=== PATIENT | female | born 1985 | race African-American/Black ===

== ENCOUNTER 2017-01-03 11:31 | Inpatient (IN) | payer BC, OTHER ==
[2017-01-03] MEDS ORDERED: PROPOFOL 20 ML ONE ×4 (12:20)
[2017-01-03] MEDS ORDERED: ACETAMINOPHEN 500 MG TABLET (FP) ONE (14:34)
--- NOTE | 2017-01-03 14:59 | CON.GI ---
Consult Consult Specialty:: GI Referred by:: Hospitalist service Reason for Consultation:: Abdominal pain / abnormal colnoscopy findings - History of Present Illness Chief Complaint: Patient was having abdominal pain History of Present Illness: 31 y/o female admitted from endoscopy. I had evaluated her last week in the office for intermittent acute on chronic abdominal pain that had been accompanied by vomiting as well. As part of her work-up she underwent blood work revealing her to be mildly anemic with a hgb of 10.5. She also underwent CT scan of the abdomen and pelvis with PO and IV contrast 12/28/16 that revealed a 2-3mm left lung base nodule, hypoattenuation in the left hepatic lobe (? fatty infiltration), enlarged and heterogeneous uterus, enlarged right ovary with cyst, right renal stone and fat filled umbilical hernia with fluid/ stranding in the area. She underwent colonoscopy today for follow-up of the abnormal CT scan that revealed a near obstructing lesion in the distal ascending colon just proximal to the hepatic flexure. The pediatric colonoscope could not be passed through the lesion. Biopsies were obtained and tattoos x 4 applied distal to the lesion. - History Source History Provided By: Patient Limitations to Obtaining History: No Limitations - Past Medical History ...LMP Comment: HCG NEGATIVE ...: No (URINE TEST) - Past Surgical History Past Surgical History: Yes: - Alcohol/Substance Use Hx Alcohol Use: No - Smoking History Smoking history: Never smoked Have you smoked in the past 12 months: No Aproximately how many cigarettes per day: 0 Home Medications - Allergies Allergies/Adverse Reactions: Allergies Allergy/AdvReac Type Severity Reaction Status Date / Time No Known Allergies Allergy Verified 06/05/12 08:35 - Home Medications Home Medications: Ambulatory Orders Multivitamin with Minerals [Icaps Plus] 1 each PO DAILY 01/02/17 Temple-3 Fatty Acids [Temple-3] 1,000 mg PO DAILY 01/02/17 Review of Systems - Review of Systems Cardiovascular: denies: Chest Pain Respiratory: denies: SOB Gastrointestinal: reports: Abdominal Pain, Bloating, Nausea, Vomiting. denies: Dysphagia, Melena, Rectal Bleeding Physical Exam-GI Vital Signs: Vital Signs Temperature 97.8 F 01/03/17 13:27 Pulse Rate 64 01/03/17 14:18 Respiratory Rate 20 01/03/17 14:18 Blood Pressure 103/59 01/03/17 14:18 O2 Sat by Pulse Oximetry (%) 100 01/03/17 14:18 Constitutional: Yes: Well Nourished, Calm Eyes: No: Sclera Icterus Cardiovascular: Yes: Regular Rate and Rhythm. No: Murmur Respiratory: Yes: CTA Bilaterally Gastrointestinal Inspection: Yes: Scars (pelvic) ...Auscultate: Yes: Normoactive Bowel Sounds ...Palpate: Yes: Tenderness (mild TTP Mid Abdomen). No: Guarding, Hepatomegaly , Splenomegaly, Tenderness, Rebound ...Percussion: No: Tympanitic Edema: No Neurological: Yes: Alert, Oriented Imaging - Results Cat Scan: Report Reviewed, Image Reviewed Problem List - Problems (1) Colonic mass Assessment/Plan: In the proximal colon, circumferential and near obstructing. I discussed the finding with Ms. Landeros and her primary Dr. Severino via telephone today and expressed my concern that the mass is likely a colon cancer. Given the near obstructing nature of the lesion along with the vague findings on previous CT scan (lung nodule, ? fatty infiltration vs. liver lesion) I advised admission for further inpatient work-up. CT scan of the chest has been ordered Triple phase MRI of the abdomen ordered CEA, CBC, CMP ordered Consult placed for Dr. Sylvester Hernandez colorectal surgeon Consult placed for Dr. Roxann Santos D/W Dr. Moses. Patient to be admitted to hospitalist service Code(s): K63.9 - DISEASE OF INTESTINE, UNSPECIFIED
[2017-01-03 16:07] LABS: BASOPHIL 0.5 % (0-2.0); EOSINOPHIL 1.6 % (0-4.5); MCH 27.9 pg (25.7-33.7); MCHC 32.5 g/dl (32.0-36.0); MEAN CELL VOLUME 85.8 fl (80-96); MEAN PLT VOLUME 10.1 fl (7.5-11.1); NEUTROPHILS 68.3 % (42.8-82.8); PLATELET COUNT 217 K/MM3 (134-434); RDW 13.3 % (11.6-15.6); WHITE BLOOD COUNT 2.9 K/mm3 (4.0-10.0)
--- NOTE | 2017-01-03 16:38 | PN ---
Teaching Attending Note Name of Resident: Gilberto Trevino ATTENDING PHYSICIAN STATEMENT I saw and evaluated the patient. I reviewed the resident's note and discussed the case with the resident. I agree with the resident's findings and plan as documented. SUBJECTIVE: The patient is a 31 year old female with no significant past medical history who was admitted for further evaluation after an anemia work-up prompted a colonoscopy that showed an obstructing lesion in the ascending colon concerning for possible colon cancer. OBJECTIVE: The patient is well appearing and in no acute distress Vitals noted CBC noted Chemistries pending ASSESSMENT AND PLAN: -Anemia Anemia is chronic. It is normocytic with normal RDM Leukopenia is a new finding Hematology was consulted by GI Of note, albumin and total protein were quite low in 2013. -Colon lesion Appreciate GI cosmetic consultant assitance CT scan of the chest and triple phase MRI of the abdomen ordered CEA pending Will follow colorectal consult, heme/onc consult -Uterine and ovarian abnormalities seen on CT WIll consult [facility] See resident note for full details
[2017-01-03 16:57] VITALS: BMI 26.8
[2017-01-03 17:51] LABS: ALBUMIN 3.4 g/dl (3.4-5.0); ALK PHOS 40 U/L (45-117); ANION GAP 10 (8-16); BILIRUBIN,TOTAL 0.6 mg/dL (0.2-1.0); CALCIUM 8.3 mg/dL (8.5-10.1); CO2 27 mmol/L (21-32); CREATININE 0.7 mg/dL (0.55-1.02); GLUCOSE,RANDOM 73 mg/dL (74-106); SGOT/AST 14 U/L (15-37); SGPT/ALT 15 U/L (12-78); TOT PROT 6.3 g/dl (6.4-8.2)
--- NOTE | 2017-01-03 18:14 | HP ---
CHIEF COMPLAINT:ABD pain HISTORY OF PRESENT ILLNESS: 31F no PMH presented for colonoscopy today and was found to have an obstructing colon mass that the pediatric colonoscope could not pass through the lesion. Seen in GI office last week and noted to have anemia Hb 10.[address] scan ABD/Pelv on 12/28/16 which showed 2-3mm left lung base nodule, hypoattenuation in the left hepatic lobe possible fatty infiltration, enlarged and heterogeneous uterus, enlarged right ovary with cyst, right renal stone and fat filled umbilical hernia with fluid/stranding in the area. She has been having acute on chronic abdominal pain. She was admitted for further inpatient work up. Recent Travel:denies PAST MEDICAL HISTORY:denies Social History: Smoking:Denies Alcohol:Denies Drugs: Denies Family History: Dad had prostate Ca and some kind of bone marrow or blood Ca and mom had breast Ca Allergies No Known Allergies Allergy (Verified 06/05/12 08:35) HOME MEDICATIONS: Home Medications Medication Instructions Recorded Multivitamin with Minerals [Icaps 1 each PO DAILY 01/02/17 Plus] [place]-3 Fatty Acids [[place]-3] 1,000 mg PO DAILY 01/02/17 REVIEW OF SYSTEMS CONSTITUTIONAL: Absent: fever, chills, diaphoresis, generalized weakness, malaise, loss of appetite, Present: weight loss of 70lbs intentional not eating carbs per patient HEENT: Absent: rhinorrhea, nasal congestion, throat pain, throat swelling, difficulty swallowing, mouth swelling, ear pain, eye pain, visual changes CARDIOVASCULAR: Absent: chest pain, syncope, palpitations, irregular heart rate, lightheadedness , peripheral edema RESPIRATORY: Absent: cough, shortness of breath, dyspnea with exertion, orthopnea, wheezing, stridor, hemoptysis GASTROINTESTINAL: Absent: abdominal distension, nausea, vomiting, diarrhea, constipation, melena , hematochezia Present:abdominal pain GENITOURINARY: Absent: dysuria, frequency, urgency, hesitancy, hematuria, flank pain, genital pain MUSCULOSKELETAL: Absent: myalgia, arthralgia, joint swelling, back pain, neck pain SKIN: Absent: rash, itching, pallor HEMATOLOGIC/IMMUNOLOGIC: Absent: easy bleeding, easy bruising, lymphadenopathy, frequent infections ENDOCRINE: Absent: unexplained weight gain, heat intolerance, cold intolerance NEUROLOGIC: Absent: headache, focal weakness or paresthesias, dizziness, unsteady gait, seizure, mental status changes, bladder or bowel incontinence PSYCHIATRIC: Absent: anxiety, depression, suicidal or homicidal ideation, hallucinations. PHYSICAL EXAMINATION Vital Signs - 24 hr 01/03/17 01/03/17 01/03/17 13:27 13:44 14:04 Temperature 97.8 F Pulse Rate 85 60 69 Respiratory 16 20 20 Rate Blood Pressure 98/48 102/54 94/58 O2 Sat by Pulse 99 100 100 Oximetry (%) 01/03/17 01/03/17 01/03/17 14:18 14:50 16:22 Temperature 97.5 F L 98.4 F Pulse Rate 64 69 57 L Respiratory 20 20 18 Rate Blood Pressure 103/59 103/59 103/59 O2 Sat by Pulse 100 97 Oximetry (%) 01/03/17 01/03/17 01/03/17 16:23 17:04 18:07 Temperature 98.4 F 98.9 F Pulse Rate 57 L 69 Respiratory 18 20 Rate Blood Pressure 103/59 112/68 O2 Sat by Pulse 97 Oximetry (%) GENERAL: Awake, alert, and fully oriented, in no acute distress. HEAD: Normal with no signs of trauma. EYES: Pupils equal, round and reactive to light, extraocular movements intact, sclera anicteric, conjunctiva clear. No lid lag. EARS, NOSE, THROAT: Ears normal, nares patent, oropharynx clear without exudates. Moist mucous membranes. NECK: Normal range of motion, supple LUNGS: Breath sounds equal, clear to auscultation bilaterally HEART: Regular rate and rhythm, normal S1 and S2 without murmur ABDOMEN: Soft, mildly tender to palpation, not distended, normoactive bowel sounds MUSCULOSKELETAL: Normal range of motion at all joints. No bony deformities or tenderness. No CVA tenderness. Decreased muscle mass UPPER EXTREMITIES: warm, well-perfused. No peripheral edema. LOWER EXTREMITIES: warm, well-perfused. No calf tenderness. No peripheral edema. NEUROLOGICAL: Cranial nerves II-XII intact. Normal speech. Laboratory Results - last 24 hr 01/03/17 01/03/17 11:54 14:45 WBC 2.9 L D RBC 3.66 Hgb 10.2 L Hct 31.4 L MCV 85.8 MCHC 32.5 RDW 13.3 Plt Count 217 MPV 10.1 Neutrophils % 68.3 Lymphocytes % 22.2 Monocytes % 7.4 Eosinophils % 1.6 Basophils % 0.5 Urine HCG, Qual Negative ASSESSMENT/PLAN: 31F no PMH found to have multiple findings on CT scan dated 12/28/16 admitted after an obstructing lesion found on colonoscopy in the distal ascending colon just proximal to hepatic flexure. Mass of ascending colon: Given characterisitics on CT scan this is likely colon Cancer Triple phase MRI of abdomen per GI Labs in AM CEA level heme/oncology conuslt colorectal Sx consult Albumin and total protein levels low on previous labs in the system from 2012 f/u pathology from colon biopsies Hepatic hypoattenuation of left lobe: possible metastasis vs fatty liver infiltration follow up MRI of abdomen left lung base nodule: possible incidental finding but in the setting of possible colon Ca will need to rule out metastasis f/u Chest CT Leukopenia: new finding: possibly secondary to cancer f/u hematology protein calorie malnutrition: patient appears slightly cachectic low albumin and total protein levels indicative of malnutrition also give her low amount of lean muscle mass Anemia: Chronic likely secondary to colon mass with intermittent GI bleeding f/u hemtology Ovarian Mass/enlarged uterus: possible metastasis: ORTHO RN consult FEN: no IVF no electrolyte issues FLD per GI PPx: SCDs/HSQ no GI Ppx needed at this time no PT consult needed at this time will assess need for PT consult on a daily basis. Case discussed with attending Dr. Mooney Visit type - Emergency Visit Emergency Visit: No - New Patient This patient is new to me today: Yes Date on this admission: 01/03/17 - Critical Care Critical Care patient: No
[2017-01-03] MEDS ORDERED: ONDANSETRON 4 MG/2 ML VIAL IVPB PRN (19:02)
--- NOTE | 2017-01-03 19:42 | CONSULT ---
Consult Consult Specialty:: Oncology Referred by:: Dr. Kaiser Reason for Consultation:: near obstructing mass in the distal ascending colon. - History of Present Illness Chief Complaint: Crampy abdominal pains, inability to evacuate total stool contents ,abnormal CT and near obstructing lesion distal ascending colon. 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: Migraine Reproductive: Yes: Fibroids ...LMP: 01/03/17 ...LMP Comment: HCG NEGATIVE ...: No (URINE TEST) ...: 3 ...Para: 4 Heme/Onc: Yes: Anemia Endocrine: Yes: Hyperthyroidism - Past Surgical History Past Surgical History: Yes: - Alcohol/Substance Use Hx Alcohol Use: No - Smoking History Smoking history: Never smoked Have you smoked in the past 12 months: No Aproximately how many cigarettes per day: 0 - Social History Usual Living Arrangement: With Child 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 Home Medications - Allergies Allergies/Adverse Reactions: Allergies Allergy/AdvReac Type Severity Reaction Status Date / Time No Known Allergies Allergy Verified 06/05/12 08:35 - Home Medications Home Medications: Ambulatory Orders Multivitamin with Minerals [Icaps Plus] 1 each PO DAILY 01/02/17 Concepcion-3 Fatty Acids [Concepcion-3] 1,000 mg PO DAILY 01/02/17 Family Disease History - Family Disease History Family Disease History: CA: Father (bone cancer and prostate ca) Review of Systems - Review of Systems Eyes: denies: Blurred Vision, Double Vision HENT: denies: Difficult Swallowing, Epistaxis, Throat Pain Neck: denies: Pain on Movement, Swollen Glands Cardiovascular: denies: Chest Pain, Palpitations, Shortness of Breath Respiratory: denies: SOB Gastrointestinal: reports: Abdominal Pain, Constipation, Nausea. denies: Dysphagia, Melena Genitourinary: denies: Burning, Dysuria, Flank Pain Breasts: reports: Lumps Musculoskeletal: reports: No Symptoms Integumentary: reports: No Symptoms Neurological: reports: No Symptoms Endocrine: reports: No Symptoms Hematology/Lymphatic: reports: No Symptoms Psychiatric: reports: No Symptoms Physical Exam Vital Signs: Vital Signs Temperature 98.4 F 01/03/17 18:12 Pulse Rate 57 L 01/03/17 18:12 Respiratory Rate 18 01/03/17 18:12 Blood Pressure 103/59 01/03/17 18:12 O2 Sat by Pulse Oximetry (%) 97 01/03/17 18:07 Constitutional: Yes: Mild Distress Eyes: Yes: EOM Intact, PERRL. No: Cataracts, Diplopia, Ptosis, Sclera Icterus HENT: No: Atraumatic, Normocephalic, Epistaxis, Pharyngeal Erythema, Tonsillar Exudate Neck: Yes: Supple. No: Lymphadenopathy, Tenderness, Thyromegaly Cardiovascular: Yes: Regular Rate and Rhythm Respiratory: Yes: Regular, CTA Bilaterally Gastrointestinal: Yes: Tenderness, Other (tenderness about umbilicus). No: Ascites, Hepatomegaly, Splenomegaly Renal/: Yes: Menses Present. No: Bladder Distention, CVA Tenderness - Left, CVA Tenderness - Right Breast(s): Yes: Left, Other Musculoskeletal: No: Joint Stiffness, Muscle Pain Extremities: No: Calf Tenderness, Cyanosis Integumentary: Yes: WNL Neurological: Yes: WNL ...Motor Strength: WNL Psychiatric: Yes: WNL Labs: CBC, BMP 01/03/17 14:45 01/03/17 14:45 Imaging - Results Cat Scan: Report Reviewed, Image Reviewed Problem List - Problems (1) Colonic mass Assessment/Plan: Near obstructing mass distal ascending colon. Abnormal Abdominal CT with lung nodule , area of hypodensity liver, umbilical hernia with fat stranding , enlarged uterus with right ovarian cyst. Plan: Await biopsy and imaging studies. Code(s): K63.9 - DISEASE OF INTESTINE, UNSPECIFIED (2) Anemia Assessment/Plan: ?? blood loss- awaiting biopsy results. Code(s): D64.9 - ANEMIA, UNSPECIFIED (3) Breast nodule Assessment/Plan: Upper outer quadrant right breast Will need sono for assessment. Code(s): N63 - UNSPECIFIED LUMP IN BREAST
[2017-01-04 08:33] LABS: MCH 27.9 pg (25.7-33.7); MCHC 32.4 g/dl (32.0-36.0); MEAN PLT VOLUME 9.5 fl (7.5-11.1); PLATELET COUNT 192 K/MM3 (134-434); RDW 13.1 % (11.6-15.6); WHITE BLOOD COUNT 2.8 K/mm3 (4.0-10.0)
[2017-01-04 08:56] LABS: CALCIUM 8.5 mg/dL (8.5-10.1)
[2017-01-04 08:57] LABS: CREATININE 0.7 mg/dL (0.55-1.02)
--- NOTE | 2017-01-04 12:11 | PN ---
Progress Note (short form) - Note Progress Note: Had d/w Dr. Soto. 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 Await CEA Await abdominal MRI / Chest CT scan chest reports Oncology following Consider assistant credit manager evaluation re: CT scan fiindings Problem List - Problems (1) Colonic mass Code(s): K63.9 - DISEASE OF INTESTINE, UNSPECIFIED
--- NOTE | 2017-01-04 13:27 | CONSULT ---
Consult Consult Specialty:: colorectal surgery Reason for Consultation:: near obstructing ascending colon mass - History of Present Illness Chief Complaint: occ abd pain History of Present Illness: Pt is a 31F with episodic abd pain over last couple of months. Workup includes CT showing apple core lesion in R colon. Colonoscopy done yesterday shows near obstructing lesion highly suspicious for malignancy. CT showed ? lesion in liver. MRI done and read is pending. CT Chest shows nodules which should be followed in 6 months. Pt denies weight loss. +anemia. 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 Loss Eyes: denies: Blind Spots, Blurred Vision HENT: denies: Difficult Swallowing, Ear Discharge Neck: denies: Decreased ROM, Lumps Cardiovascular: denies: Chest Pain, Edema Respiratory: denies: Cough, Exercise Intolerance Gastrointestinal: reports: Abdominal Pain. denies: Bloating Genitourinary: denies: Burning, Discharge Breasts: denies: Lumps, Pain Musculoskeletal: denies: Back Pain, Crepitus Integumentary: denies: Blister, Bruising Neurological: denies: Change in Speech, Incoordination Endocrine: denies: Excessive Sweating, Flushing Hematology/Lymphatic: denies: Easily Bruised, Excessive Bleeding Psychiatric: denies: Altered Sleep Pattern, Anxiety Physical Exam Vital Signs: Vital Signs Temperature 98.9 F 01/04/17 07:04 Pulse Rate 60 01/04/17 07:04 Respiratory Rate 20 01/04/17 07:04 Blood Pressure 88/42 01/04/17 07:04 O2 Sat by Pulse Oximetry (%) 97 01/03/17 21:00 Constitutional: Yes: No Distress, Calm Eyes: Yes: Conjunctiva Clear, EOM Intact HENT: Yes: Atraumatic, Normocephalic Neck: Yes: Supple, Trachea Midline Cardiovascular: Yes: Regular Rate and Rhythm Respiratory: Yes: Regular, CTA Bilaterally Gastrointestinal: Yes: Soft, Other (old scar). No: Distention, Tenderness ...Rectal Exam: Yes: Deferred Renal/: No: CVA Tenderness - Left, CVA Tenderness - Right Musculoskeletal: No: Joint Stiffness, Joint Swelling Extremities: No: Calf Tenderness, Erythema Integumentary: No: Erythema, Rash Neurological: Yes: Alert, Oriented Psychiatric: Yes: Alert, Oriented Labs: CBC, BMP 01/04/17 07:00 01/04/17 07:00 Imaging - Results Cat Scan: Report Reviewed, Image Reviewed MRI: Image Reviewed Problem List - Problems (1) Ascending colon malignant neoplasm Assessment/Plan: await MRI results for lap R sandrine on Monday await CEA results Code(s): C18.2 - MALIGNANT NEOPLASM OF ASCENDING COLON
--- NOTE | 2017-01-04 15:04 | PATH ---
Surgical Pathology Report Patient Name: NEY ANDERSON Med. Rec. #: [id number] /Age/Gender: 1985 (Age: 31) / F Account: [id number] Location: [facility] MED/SURG Taken: 01/03/2017 Received: 01/03/2017 Reported: 01/04/2017 Physicians: Wilfredo Rosales D.O. 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 Comment: Immunohistochemical stains performed and interpreted at [facility] show the following: the tumor cells are positive for Ae1/Ae3 and CK20 keratind and are negative for CK7. These results are consistent with primary colon origin of the tumor. DNA Mismatch Repair (MMR) protein expression annalysis by IHC is pending; resultswill be reported in an addendum. The case was discussed with Dr. Paola Rosales on 01/04/17. Electronically Signed Vicente Soto M.D. Addendum Reported: 01/05/2017 Addendum Diagnosis DNA Mismatch Repair (MMR) protein expression analysis by IHC performed at the [facility], [place], [place] ([id number]) and interpreted [facility] shows the following: Results: hMLH-1 DNA Mismatch Repair Protein: Intact nuclear expression hMSH-2 DNA Mismatch Repair Protein: Intact nuclear expression hMSH-6 DNA Mismatch Repair Protein: Intact nuclear expression PMS2 DNA Mismatch Repair Protein: Intact nuclear expression Interpretation: No defect in DNA Mismatch Repair (MMR) protein expression is identified by IHC. This result is usually seen in MSI-H stable tumors and is not associated with HNPCC (Armendariz syndrome). Vicente Soto M.D. Gross Description Received in formalin labeled "biopsy right colon" is a 0.9 x 0.8 x 0.2 cm aggregate of thomas soft tissue fragments. The formalin is filtered and the specimen is entirely submitted in one cassette. 01/03/201701/03/2017
--- NOTE | 2017-01-04 15:59 | PN ---
Physical Exam: SUBJECTIVE: Patient seen and examined OBJECTIVE: Vital Signs Period Temp Pulse Resp BP Sys/Quintana Pulse Ox Last 24 Hr 98.4 F-99.9 F 57-72 18-20 88-112/42-68 97-97 GENERAL: Awake, alert, and fully oriented, in no acute distress. HEAD: Normal with no signs of trauma. EYES: Pupils equal, round and reactive to light, extraocular movements intact, sclera anicteric, conjunctiva clear. No lid lag. EARS, NOSE, THROAT: Ears normal, nares patent, oropharynx clear without exudates. Moist mucous membranes. NECK: Normal range of motion, supple LUNGS: Breath sounds equal, clear to auscultation bilaterally HEART: Regular rate and rhythm, normal S1 and S2 without murmur ABDOMEN: Soft, mildly tender to palpation in bilateral lower quadrants, not distended, normoactive bowel sounds MUSCULOSKELETAL: Normal range of motion at all joints. No bony deformities or tenderness. No CVA tenderness. Decreased muscle mass UPPER EXTREMITIES: warm, well-perfused. No peripheral edema. LOWER EXTREMITIES: warm, well-perfused. No calf tenderness. No peripheral edema. NEUROLOGICAL: Cranial nerves II-XII intact. Normal speech. Laboratory Results - last 24 hr 01/03/17 01/03/17 01/04/17 14:45 14:45 07:00 WBC 2.9 L D 2.8 L RBC 3.66 3.66 Hgb 10.2 L 10.2 L Hct 31.4 L 31.5 L MCV 85.8 86.0 MCHC 32.5 32.4 RDW 13.3 13.1 Plt Count 217 192 MPV 10.1 9.5 Neutrophils % 68.3 Lymphocytes % 22.2 Monocytes % 7.4 Eosinophils % 1.6 Basophils % 0.5 Sodium 140 Potassium 4.2 Chloride 103 Carbon Dioxide 27 D Anion Gap 10 BUN 9 Creatinine 0.7 Creat Clearance w eGFR > 60 Random Glucose 73 L Calcium 8.3 L Total Bilirubin 0.6 AST 14 L ALT 15 Alkaline Phosphatase 40 L D Total Protein 6.3 L Albumin 3.4 D 01/04/17 07:00 WBC RBC Hgb Hct MCV MCHC RDW Plt Count MPV Neutrophils % Lymphocytes % Monocytes % Eosinophils % Basophils % Sodium 141 Potassium 4.2 Chloride 104 Carbon Dioxide 28 Anion Gap 9 BUN 8 Creatinine 0.7 Creat Clearance w eGFR Random Glucose 79 Calcium 8.5 Total Bilirubin AST ALT Alkaline Phosphatase Total Protein Albumin Active Medications Generic Name Dose Route Start Last Admin Trade Name Freq PRN Reason Stop Dose Admin Heparin Sodium (Porcine) 5,000 unit 01/04/17 22:00 Heparin - SQ TID ANNIE Ondansetron HCl 4 mg 01/03/17 19:02 Zofran Injection IVPB Q6H PRN NAUSEA ASSESSMENT/PLAN: 31F no PMH found to have multiple findings on CT scan dated 12/28/16 admitted after an obstructing lesion found on colonoscopy in the distal ascending colon just proximal to hepatic flexure. Mass of ascending colon: Given characterisitics on CT scan this is likely colon Cancer Triple phase MRI of abdomen per GI read pending CEA level-pending heme/oncology consult appreciated colorectal Sx consult appreciated for OR this monday for laparoscopic right hemicolectomy Albumin and total protein levels low on previous labs in the system from 2012 f/u pathology from colon biopsies-poorly differentiated adenocarcinoma. tumnor is likely primary colon source but pathology will do stains to evaluate RECORDING ENGINEER source. given the young age of this patient and her father having prostate ca and some kind of bone marrow cancer and mother possibly having breast Ca she should be evaluated for genetic cancer mutations and hereditary cancer syndromes Hepatic hypoattenuation of left lobe: possible metastasis vs fatty liver infiltration follow up MRI of abdomen-pending left lung base nodule: possible incidental finding but in the setting of possible colon Ca will need to rule out metastasis Chest CT-small nodules noted will need follow up CT in 6 months Leukopenia: new finding: possibly secondary to cancer protein calorie malnutrition: patient appears cachectic low albumin and total protein levels indicative of malnutrition also give her low amount of lean muscle mass Anemia: Chronic likely secondary to colon mass with intermittent GI bleeding f/u hemtology Ovarian Mass/enlarged uterus: possible metastasis but likely from fibroids as patient had a history of myomectomy RECORDING ENGINEER consult with Dr. 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 Case discussed with attending Dr. Hinojosa Visit type - Emergency Visit Emergency Visit: No - New Patient This patient is new to me today: No - Critical Care Critical Care patient: No - Discharge Referral Referred to [facility] No
--- NOTE | 2017-01-04 19:07 | PN ---
Teaching Attending Note Name of Resident: Gilberto Trevino ATTENDING PHYSICIAN STATEMENT I saw and evaluated the patient. I reviewed the resident's note and discussed the case with the resident. I agree with the resident's findings and plan as documented. SUBJECTIVE: no fever or chills, mild chronci abd pain . no diarrhea or constipation OBJECTIVE: NAD CV : RRR Lungs : CTAB ext : no edema Abd : soft, NT, ND , NL BS. Lymphatic system : 1 cm lymph node was felt in L groin . no LAP in axilla breast exam: no masses , no discharge from nipples , no skin lesions . no LAP in axillary area ASSESSMENT AND PLAN: 31 y/o lady with no PMH who presented for evaluation of R colonic mass seen on CT scan 1- Ascending colon mass: with no liver lesions on MRI. pathology with highly differentiated carcinoma with signet cells. likely from colon. unlikely uterine cancer , but ovarian malignancy needs to be r/o Mom had breast cancer, ? familial genetic solid tumor syndrome - for R hemicolectomy on Monday. - tumor markers are pending - other path staining pending - CT chest does not seem to have mets - FUR BLENDER c/s pending - Pre-OP surgical clearance : the surgery is intermediate risk procedure . the patient herself has no signs fo ACS, arrhythmias, or CHF. has no h/o CVA or CAD. she is functional ( > 10 METS ) she is considered low risk for this intermediate risk sx. No need for further cardiac w/u prior to her Sx. 2- Normocytic anemia: likley multifactoria. need to r/o chronic GI loss though - check iron studies and B12 /folate 3- DVT px
[2017-01-04] MEDS ORDERED: KETOROLAC TROMETHAMINE 30 MG/1 ML VIAL IVPUSH ONE (20:28)
[2017-01-04] MEDS ORDERED: HEPARIN NA (PORCINE) 5,000 UNITS/ML 1ML VIAL SQ SCH (22:00)
[2017-01-05 08:19] LABS: BASOPHIL 0.8 % (0-2.0); EOSINOPHIL 3.2 % (0-4.5); MCH 28.1 pg (25.7-33.7); MCHC 32.6 g/dl (32.0-36.0); MEAN CELL VOLUME 86.2 fl (80-96); MEAN PLT VOLUME 9.7 fl (7.5-11.1); NEUTROPHILS 57.8 % (42.8-82.8); PLATELET COUNT 198 K/MM3 (134-434); WHITE BLOOD COUNT 2.8 K/mm3 (4.0-10.0)
[2017-01-05 08:46] LABS: FERRITIN 7.32 ng/ml (6.9-282.5)
[2017-01-05 09:13] LABS: CALCIUM 8.5 mg/dL (8.5-10.1); CREATININE 0.8 mg/dL (0.55-1.02)
[2017-01-05] MEDS: ENOXAPARIN NA (PORCINE) 40 MG/0.4 ML DISP.SYRIN SQ SCH (10:10)
--- NOTE | 2017-01-05 10:34 | PN ---
Progress Note, Physician Chief Complaint: no new complaints History of Present Illness: MRI results reviewed with patient. no liver mets. Path reviewed. Pt counseled and discussed surgery. she consents. - Current Medication List Current Medications: Active Medications Enoxaparin Sodium (Lovenox -) 40 mg SQ DAILY [facility] Last Admin: 01/05/17 10:10 Dose: 40 mg Dextrose/Sodium Chloride (D5-Ns -) 1,000 mls @ 100 mls/hr IV ASDIR [facility] Metronidazole (Flagyl -) 500 mg PO 1400,1500,2200 [facility] Stop: 01/06/17 13:59 Neomycin Sulfate (Mycifradin -) 1,000 mg PO 1400,1500,2200 [facility] Stop: 01/05/17 22:01 Ondansetron HCl (Zofran Injection) 4 mg IVPB Q6H PRN PRN Reason: NAUSEA - Objective Vital Signs: Vital Signs Temperature 98.4 F 01/05/17 09:04 Pulse Rate 70 01/05/17 09:04 Respiratory Rate 20 01/05/17 09:04 Blood Pressure 104/61 01/05/17 09:04 O2 Sat by Pulse Oximetry (%) 97 01/04/17 09:00 Constitutional: Yes: No Distress, Calm Eyes: Yes: Conjunctiva Clear, EOM Intact HENT: Yes: Atraumatic, Normocephalic Neck: Yes: Supple, Trachea Midline Cardiovascular: Yes: Regular Rate and Rhythm Respiratory: Yes: Regular, CTA Bilaterally Gastrointestinal: Yes: Soft. No: Distention, Tenderness ...Rectal Exam: Yes: Deferred Genitourinary: No: CVA Tenderness - Left, CVA Tenderness - Right Musculoskeletal: No: Joint Stiffness, Joint Swelling Extremities: No: Calf Tenderness, Erythema Integumentary: No: Erythema, Rash Neurological: Yes: Alert, Oriented Psychiatric: Yes: Alert, Oriented Labs: CBC, BMP 01/05/17 06:15 01/05/17 06:15 Problem List - Problems (1) Ascending colon malignant neoplasm Assessment/Plan: await Topper Press Operator consult for lap R sandrine tomorrow at approx noon oral and abx bowel prep orders written consent obtained r/b/a d/w pt and she understands and wishes to proceed Code(s): C18.2 - MALIGNANT NEOPLASM OF ASCENDING COLON
--- NOTE | 2017-01-05 12:34 | PN ---
Physical Exam: SUBJECTIVE: Patient seen and examinedat bedside had some abdominal pain last night OBJECTIVE: Vital Signs Period Temp Pulse Resp BP Sys/Quintana Pulse Ox Last 24 Hr 98 F-98.6 F 59-83 18-20 97-105/55-66 GENERAL: Awake, alert, and fully oriented, in no acute distress. HEAD: Normal with no signs of trauma. EYES: Pupils equal, round and reactive to light, extraocular movements intact, sclera anicteric, conjunctiva clear. No lid lag. EARS, NOSE, THROAT: Ears normal, nares patent, oropharynx clear without exudates. Moist mucous membranes. NECK: Normal range of motion, supple LUNGS: Breath sounds equal, clear to auscultation bilaterally HEART: Regular rate and rhythm, normal S1 and S2 without murmur ABDOMEN: Soft, non tender, not distended, normoactive bowel sounds MUSCULOSKELETAL: Normal range of motion at all joints. No bony deformities or tenderness. No CVA tenderness. Decreased muscle mass UPPER EXTREMITIES: warm, well-perfused. No peripheral edema. LOWER EXTREMITIES: warm, well-perfused. No calf tenderness. No peripheral edema. NEUROLOGICAL: Cranial nerves II-XII intact. Normal speech. Laboratory Results - last 24 hr 01/03/17 01/05/17 01/05/17 14:45 06:15 06:15 WBC 2.8 L RBC 3.77 Hgb 10.6 L Hct 32.5 MCV 86.2 MCHC 32.6 RDW 13.0 Plt Count 198 MPV 9.7 Neutrophils % 57.8 Lymphocytes % 27.3 D Monocytes % 10.9 H Eosinophils % 3.2 D Basophils % 0.8 Sodium 139 Potassium 3.8 Chloride 102 Carbon Dioxide 27 Anion Gap 10 BUN 10 D Creatinine 0.8 Random Glucose 92 Calcium 8.5 Ferritin Carcinoembryonic Ag 32.7 H Vitamin B12 Serum Folate 28 H Blood Type Antibody Screen 01/05/17 01/05/17 06:15 10:50 WBC RBC Hgb Hct MCV MCHC RDW Plt Count MPV Neutrophils % Lymphocytes % Monocytes % Eosinophils % Basophils % Sodium Potassium Chloride Carbon Dioxide Anion Gap BUN Creatinine Random Glucose Calcium Ferritin 7.320 Carcinoembryonic Ag Vitamin B12 1940 H Serum Folate Blood Type B POSITIVE Antibody Screen Negative Active Medications Generic Name Dose Route Start Last Admin Trade Name Freq PRN Reason Stop Dose Admin Alvimopan 12 mg 01/06/17 10:00 Entereg Capsule (Restricted) - PO BID [facility] Enoxaparin Sodium 40 mg 01/05/17 10:00 01/05/17 10:10 Lovenox - SQ 40 mg DAILY [facility] Administration Dextrose/Sodium Chloride 1,000 mls @ 100 mls/hr 01/05/17 18:00 D5-Ns - IV ASDIR ANNIE Metronidazole 500 mg 01/05/17 14:00 Flagyl - PO 01/06/17 13:59 1400,1500,2200 ANNIE Neomycin Sulfate 1,000 mg 01/05/17 14:00 Mycifradin - PO 01/05/17 22:01 1400,1500,2200 ANNIE Ondansetron HCl 4 mg 01/03/17 19:02 Zofran Injection IVPB Q6H PRN NAUSEA ASSESSMENT/PLAN: 31F no PMH found to have multiple findings on CT scan dated 12/28/16 admitted after an obstructing lesion found on colonoscopy in the distal ascending colon just proximal to hepatic flexure. Mass of ascending colon: poorly differentiated adenoaCa Triple phase MRI of abdomen per GI read pending CEA level-32.7-very high heme/oncology consult appreciated colorectal Sx consult appreciated for OR this Monday for laparoscopic right hemicolectomy Albumin and total protein levels low on previous labs in the system from 2012 f/u pathology from colon biopsies-poorly differentiated adenocarcinoma. tumnor is likely primary colon source but pathology will do stains to evaluate NEUROSCIENCE SPECIALIST source. given the young age of this patient and her father having prostate ca and some kind of bone marrow cancer and mother possibly having breast Ca she should be evaluated as an outpatient for genetic cancer mutations and hereditary cancer syndromes Hepatic hypoattenuation of left lobe: MRI-no liver masses left lung base nodule: Chest CT-small nodules bilaterally noted will need follow up CT in 6 months Leukopenia: new finding: possibly secondary to cancer protein calorie malnutrition: patient appears cachectic low albumin and total protein levels indicative of malnutrition also give her low amount of lean muscle mass Anemia: Chronic likely secondary to colon mass with intermittent GI bleeding f/u hemtology Ovarian Mass/enlarged uterus: possible metastasis but likely from fibroids as patient had a history of myomectomy NEUROSCIENCE SPECIALIST consult with Dr. 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 Case discussed with attending Dr. Hinojosa Visit type - Emergency Visit Emergency Visit: No - New Patient This patient is new to me today: No - Critical Care Critical Care patient: No
[2017-01-05] MEDS ORDERED: PT OWN MED DRAWER 7, Y5N ONE ×3 (13:47→21:58)
[2017-01-05] MEDS: metroNIDAZOLE 250 MG TABLET PO SCH ×3 (14:18→22:00)
[2017-01-05] MEDS: NEOMYCIN SO4 500 MG TABLET PO SCH ×3 (14:18→22:00)
--- NOTE | 2017-01-05 14:28 | PN ---
Progress Note (short form) - Note Progress Note: HARDBOARD PANEL PRINTER called for consult. 31 year old Para 4, LMP 01/02/17, with 3 previous , admitted due to abdominal pain. She had a colonoscopy showing evidence of colon cancer for which she's Pre op for partial Colectomy. Imaging studies showed evidence of ovarian cyst. She denies any pelvic pain nor prolonged menses. ROS : HEENT : No Headache, no blurry vision Chest : no wheezing Heart : No palpitation Pelvis : No bleeding, no pain EXT : WNL PE : Chest : CTA, no rales Heart : CTA, S1S2, no murmur ABD : + Bowel sound Pelvis : Vagina WNL Bladder / Urethra : WNL Uterus / Cervix : WNL Adnexa : No tenderness ASS / PLAN : Colon Cancer Ovarian cyst R/O Ovarian malignancy F/U Transvaginal sonogram F/U HENRIK test ( tumor markers )
[2017-01-05] MEDS ORDERED: PEG3350/SOD SULF,BICARB,CL/KCL 4,000 ML SOLN.RECON PO ONE (15:00)
--- NOTE | 2017-01-05 16:02 | PN ---
Teaching Attending Note Name of Resident: Gilberto Trevino ATTENDING PHYSICIAN STATEMENT I saw and evaluated the patient. I reviewed the resident's note and discussed the case with the resident. I agree with the resident's findings and plan as documented. SUBJECTIVE: minimal abd cramps . no N/V , no SOB or CP OBJECTIVE: NAD CV : RRR Lungs : CTAB ext: no edema Abd : soft, minimal TTP in suprapubic area with no rebound tenderness or guarding , ND , NL BS. ASSESSMENT AND PLAN: 31 y/o lady with no PMH who presented for evaluation of R colonic mass seen on CT scan 1- Ascending colon cancer : with no liver lesions on MRI. - for R hemicolectomy tomorrow - other path staining pending - CT chest does not seem to have mets 2- ovarian cyst , need to r/o cancer - vaginal US report pending - tumor markers pending - appreciate THREAD ROLLER consult 3- Normocytic anemia: likely due to chronci dz , but also there is evidence of iron deff ( ferritin of 7 ) - follow rest of iron studies - will start iron supp after the sx 4- DVT px
--- NOTE | 2017-01-05 16:10 | EKG ---
Test Reason : Blood Pressure : / mmHG Vent. Rate : 065 BPM Atrial Rate : 065 BPM P-R Int : 208 ms QRS Dur : 090 ms QT Int : 416 ms P-R-T Axes : 041 059 023 degrees QTc Int : 432 ms NORMAL SINUS RHYTHM POSSIBLE LEFT ATRIAL ENLARGEMENT BORDERLINE ECG NO PREVIOUS ECGS AVAILABLE Confirmed by KATHERYN AMCHADO, ELISHA ([id number]) on 01/05/2017 4:10:29 PM Referred By: Pasquale Rosales Confirmed By:ELISHA CAMPA MD
--- NOTE | 2017-01-05 16:52 | PN ---
Progress Note (short form) - Note Progress Note: Colorectal surgery follow-up appreciated. Discussed case with Dr. Santos. Proceed with surgery with outpatient f/u of small ling nodules with PET scan as outpatient. Problem List - Problems (1) Colonic mass Code(s): K63.9 - DISEASE OF INTESTINE, UNSPECIFIED
[2017-01-05] MEDS: DEXTROSE 5%-NORMAL SALINE 1,000 ML IV SCH (18:18)
--- NOTE | 2017-01-05 18:57 | PN ---
Progress Note (short form) - Note Progress Note: PAtient seen and examined Intermittent periumblical abdominal pains Also has menstual cramps which are separate. Ongoing periumblical pains for few months. + nausea. + bloating intermittent vomiting Last Vital Signs Temp Pulse Resp BP Pulse Ox 98.2 F 66 20 99/58 100 01/05/17 17:12 01/05/17 17:12 01/05/17 17:12 01/05/17 17:12 01/05/17 09:00 Cor: RSR, No murmurs, No gallops Lungs: Clear to P&A Abd: Soft, Normal bowel sounds, No organomegaly Ext:No significant edema Skin: No rashes, Integument intact Abnormal Lab Results 01/03/17 01/05/17 01/05/17 14:45 06:15 06:15 WBC 2.8 L Hgb 10.6 L Monocytes % 10.9 H Carcinoembryonic Ag 32.7 H Vitamin B12 Serum Folate 28 H 01/05/17 06:15 WBC Hgb Monocytes % Carcinoembryonic Ag Vitamin B12 1940 H Serum Folate Home Medication List Medication Instructions Recorded Confirmed Type Multivitamin with Minerals [Icaps 1 each PO DAILY 01/02/17 01/03/17 History Plus] [place]-3 Fatty Acids [[place]-3] 1,000 mg PO DAILY 01/02/17 01/03/17 History Active Medications Generic Name Dose Route Start Last Admin Trade Name Lesq PRN Reason Stop Dose Admin Alvimopan 12 mg 01/06/17 10:00 Entereg Capsule (Restricted) - PO BID [facility] Enoxaparin Sodium 40 mg 01/05/17 10:00 01/05/17 10:10 Lovenox - SQ 40 mg DAILY ANNIE Administration Dextrose/Sodium Chloride 1,000 mls @ 100 mls/hr 01/05/17 18:00 01/05/17 18:18 D5-Ns - IV Not Given ASDIR [facility] Metronidazole 500 mg 01/05/17 14:00 01/05/17 15:29 Flagyl - PO 01/06/17 13:59 500 mg 1400,1500,2200 ANNIE Administration Neomycin Sulfate 1,000 mg 01/05/17 14:00 01/05/17 15:28 Mycifradin - PO 01/05/17 22:01 1,000 mg 1400,1500,2200 ANNIE Administration Ondansetron HCl 4 mg 01/03/17 19:02 Zofran Injection IVPB Q6H PRN NAUSEA A/P 31 y/o patient with distal ascending colon near obstructing mass, presenting with intermittent abdominal pains, periumblical and intermittent vomiting.Also nauseous and bloating. colonoscopy --near obstructing ascending colon mass. Poorly diff. adenoca with signet ring features. Microsatellite stable. CEA is 32 MRI abdomen did not show metastatic disease CT chest shows nonspecific nodules -- 2 nodules on the rt. ( 2mm and 4,mm) and 1 lesion on left--2mm--nonspecific. Needs monitoring Planned for rt. hemicolectomy tomorrow mild Anemia--ferritin 7 --suspect iron deficiency Mild leukopenia -- normal differential. chronic ? ethnic chcek hep. serologies/HIV/TSH/fT4 Nl B12/folate HAd been on appetite suppressants/fat burners
[2017-01-06 04:11] LABS: FREE T4 1.07 ng/dl (0.76-1.46); THYROID STIMULATING HORMONE 1.93 uIU/ml (0.358-3.74)
[2017-01-06 06:05] LABS: SERUM IRON 37 ug/dL (27-159); TOTAL IRON BINDING CAPACITY 273 ug/dL (250-450); UIBC 236 ug/dL (131-425)
[2017-01-06] MEDS: DEXTROSE 5%-NORMAL SALINE 1,000 ML IV SCH (07:00)
[2017-01-06 08:41] LABS: BASOPHIL 0.6 % (0-2.0); EOSINOPHIL 4.2 % (0-4.5); MCH 27.6 pg (25.7-33.7); MCHC 31.8 g/dl (32.0-36.0); MEAN CELL VOLUME 86.9 fl (80-96); MEAN PLT VOLUME 9.8 fl (7.5-11.1); NEUTROPHILS 53.6 % (42.8-82.8); PLATELET COUNT 254 K/MM3 (134-434); RDW 12.8 % (11.6-15.6)
[2017-01-06 08:53] LABS: INR 1.2 (0.82-1.09); PROTHROMBIN TIME (PATIENT) 13.2 SEC (9.98-11.88)
[2017-01-06 08:55] LABS: ACTIVATED PTT 32.1 SECONDS (26.9-34.4)
[2017-01-06 09:01] LABS: ALBUMIN 3.8 g/dl (3.4-5.0); ANION GAP 9 (8-16); BILIRUBIN,TOTAL 0.7 mg/dL (0.2-1.0); CALCIUM 8.6 mg/dL (8.5-10.1); CO2 29 mmol/L (21-32); CREATININE 0.8 mg/dL (0.55-1.02); GLUCOSE,RANDOM 97 mg/dL (74-106); SGOT/AST 16 U/L (15-37); SGPT/ALT 19 U/L (12-78); TOT PROT 6.9 g/dl (6.4-8.2)
[2017-01-06 09:02] LABS: ALK PHOS 44 U/L (45-117)
[2017-01-06] MEDS: ENOXAPARIN NA (PORCINE) 40 MG/0.4 ML DISP.SYRIN SQ SCH (09:53)
[2017-01-06] MEDS ORDERED: PT OWN MED DRAWER 7, Y5N ONE ×2 (09:54→10:30)
[2017-01-06] MEDS ORDERED: ALVIMOPAN 12 MG CAP PO SCH (10:00)
[2017-01-06] MEDS ORDERED: DESFLURANE GAS 240 ML BOTTLE IH ONE (13:06)
[2017-01-06] MEDS ORDERED: SCOPOLAMINE HYDROBROMIDE 1 PATCH PATCH.TD72 ONE (13:06)
[2017-01-06] MEDS ORDERED: ACETAMINOPHEN INJECTION 100 ML IVPB ONE (13:24)
--- NOTE | 2017-01-06 13:25 | PN ---
Physical Exam: SUBJECTIVE: Patient seen and examined at bedside for right hemicolectomy today OBJECTIVE: Vital Signs Period Temp Pulse Resp BP Sys/Quintana Pulse Ox Last 24 Hr 98.2 F-98.8 F 58-87 18-20 94-128/53-85 100 GENERAL: Awake, alert, and fully oriented, in no acute distress. HEAD: Normal with no signs of trauma. EYES: Pupils equal, round and reactive to light, extraocular movements intact, sclera anicteric, conjunctiva clear. No lid lag. EARS, NOSE, THROAT: Ears normal, nares patent, oropharynx clear without exudates. Moist mucous membranes. NECK: Normal range of motion, supple LUNGS: Breath sounds equal, clear to auscultation bilaterally HEART: Regular rate and rhythm, normal S1 and S2 without murmur ABDOMEN: Soft, non tender, not distended, normoactive bowel sounds MUSCULOSKELETAL: Normal range of motion at all joints. No bony deformities or tenderness. No CVA tenderness. Decreased muscle mass UPPER EXTREMITIES: warm, well-perfused. No peripheral edema. LOWER EXTREMITIES: warm, well-perfused. No calf tenderness. No peripheral edema. NEUROLOGICAL: Cranial nerves II-XII intact. Normal speech. Laboratory Results - last 24 hr 01/05/17 01/05/17 01/05/17 06:15 19:50 19:50 WBC Corrected WBC (auto) RBC Hgb Hct MCV MCHC RDW Plt Count MPV Add Manual Diff Neutrophils % Lymphocytes % Monocytes % Eosinophils % Basophils % Differential Comment Platelet Estimate Platelet Comment Normal RBC Morphology RBC Morphology ESR Retic Count Sickle Cell Screen Negative INR PTT (Actin FS) Fibrinogen Sodium Potassium Chloride Carbon Dioxide Anion Gap BUN Creatinine Creat Clearance w eGFR Random Glucose Calcium Iron 37 TIBC 273 Iron Saturation 14 L Total Bilirubin AST ALT Alkaline Phosphatase LD Total 143 C-Reactive Protein Total Protein Albumin TSH 1.93 Free T4 1.07 Rheumatoid Factor Blood Type Antibody Screen 01/06/17 01/06/17 01/06/17 06:15 06:15 06:15 WBC Cancelled Corrected WBC (auto) Cancelled RBC Cancelled Hgb Cancelled Hct Cancelled MCV Cancelled MCHC Cancelled RDW Cancelled Plt Count Cancelled MPV Cancelled Add Manual Diff Cancelled Neutrophils % Lymphocytes % Monocytes % Eosinophils % Basophils % Differential Comment Cancelled Platelet Estimate Cancelled Platelet Comment Cancelled Normal RBC Morphology Cancelled RBC Morphology Cancelled ESR Retic Count Sickle Cell Screen INR 1.20 H PTT (Actin FS) 32.1 Fibrinogen Sodium 143 Potassium 3.9 Chloride 105 Carbon Dioxide 29 Anion Gap 9 BUN 7 D Creatinine 0.8 Creat Clearance w eGFR > 60 Random Glucose 97 Calcium 8.6 Iron TIBC Iron Saturation Total Bilirubin 0.7 AST 16 ALT 19 D Alkaline Phosphatase 44 L LD Total C-Reactive Protein Total Protein 6.9 Albumin 3.8 TSH Free T4 Rheumatoid Factor Blood Type Antibody Screen 01/06/17 01/06/17 01/06/17 06:15 06:15 06:15 WBC Corrected WBC (auto) RBC Hgb Hct MCV MCHC RDW Plt Count MPV Add Manual Diff Neutrophils % Lymphocytes % Monocytes % Eosinophils % Basophils % Differential Comment Platelet Estimate Platelet Comment Normal RBC Morphology RBC Morphology ESR 3 Retic Count Sickle Cell Screen INR PTT (Actin FS) Fibrinogen Sodium Potassium Chloride Carbon Dioxide Anion Gap BUN Creatinine Creat Clearance w eGFR Random Glucose Calcium Iron TIBC Iron Saturation Total Bilirubin AST ALT Alkaline Phosphatase LD Total C-Reactive Protein < 0.3 Total Protein Albumin TSH Free T4 Rheumatoid Factor Blood Type B POSITIVE Antibody Screen Negative 01/06/17 01/06/17 01/06/17 06:15 06:15 06:15 WBC 3.0 L Corrected WBC (auto) RBC 4.16 Hgb 11.5 Hct 36.2 MCV 86.9 MCHC 31.8 L RDW 12.8 Plt Count 254 D MPV 9.8 Add Manual Diff Neutrophils % 53.6 Lymphocytes % 34.0 D Monocytes % 7.6 Eosinophils % 4.2 Basophils % 0.6 Differential Comment Platelet Estimate Platelet Comment Normal RBC Morphology RBC Morphology ESR Retic Count Sickle Cell Screen INR PTT (Actin FS) Fibrinogen 224.0 L Sodium Potassium Chloride Carbon Dioxide Anion Gap BUN Creatinine Creat Clearance w eGFR Random Glucose Calcium Iron TIBC Iron Saturation Total Bilirubin AST ALT Alkaline Phosphatase LD Total C-Reactive Protein Total Protein Albumin TSH Free T4 Rheumatoid Factor < 10.0 Blood Type Antibody Screen 01/06/17 06:15 WBC Corrected WBC (auto) RBC Hgb Hct MCV MCHC RDW Plt Count MPV Add Manual Diff Neutrophils % Lymphocytes % Monocytes % Eosinophils % Basophils % Differential Comment Platelet Estimate Platelet Comment Normal RBC Morphology RBC Morphology ESR Retic Count 1.19 Sickle Cell Screen INR PTT (Actin FS) Fibrinogen Sodium Potassium Chloride Carbon Dioxide Anion Gap BUN Creatinine Creat Clearance w eGFR Random Glucose Calcium Iron TIBC Iron Saturation Total Bilirubin AST ALT Alkaline Phosphatase LD Total C-Reactive Protein Total Protein Albumin TSH Free T4 Rheumatoid Factor Blood Type Antibody Screen Active Medications Generic Name Dose Route Start Last Admin Trade Name Freq PRN Reason Stop Dose Admin Alvimopan 12 mg 01/06/17 10:00 01/06/17 09:56 Entereg Capsule (Restricted) - PO 12 mg BID ANNIE Administration Enoxaparin Sodium 40 mg 01/05/17 10:00 01/06/17 09:53 Lovenox - SQ Not Given DAILY ANNIE Dextrose/Sodium Chloride 1,000 mls @ 100 mls/hr 01/05/17 18:00 01/06/17 07:00 D5-Ns - IV 100 mls/hr ASDIR ANNIE Administration Metronidazole 500 mg 01/05/17 14:00 01/05/17 22:00 Flagyl - PO 01/06/17 13:59 500 mg 1400,1500,2200 ANNIE Administration Ondansetron HCl 4 mg 01/03/17 19:02 Zofran Injection IVPB Q6H PRN NAUSEA ASSESSMENT/PLAN: 31F no PMH found to have multiple findings on CT scan dated 12/28/16 admitted after an obstructing lesion found on colonoscopy in the distal ascending colon just proximal to hepatic flexure. Mass of ascending colon: poorly differentiated adenoaCa Triple phase MRI of abdomen per GI - no liver metastasis CEA level-32.7-very high heme/oncology consult appreciated colorectal Sx consult appreciated for laparoscopic right hemicolectomy today Albumin and total protein levels low on previous labs in the system from 2012 f/u pathology from colon biopsies-poorly differentiated adenocarcinoma. tumor is likely primary colon source but pathology will do stains to evaluate ACCESSIONER source. further pathological assessment did not reveal any DNA mismatch defects given the young age of this patient and her father having prostate ca and some kind of bone marrow cancer and mother possibly having breast Ca she should be evaluated as an outpatient for genetic cancer mutations and hereditary cancer syndromes will check on patient postoperatively Hepatic hypoattenuation of left lobe: MRI-no liver masses on MRI left lung base nodule: Chest CT-small nodules bilaterally noted will need follow up CT in 6 months Leukopenia: new finding: possibly secondary to cancer protein calorie malnutrition: patient appears cachectic low albumin and total protein levels indicative of malnutrition also give her low amount of lean muscle mass Anemia: Chronic likely secondary to colon mass with intermittent GI bleeding Heme/onc consult appreciated will follow up all labs send by hematology service iron studies show iron deficieny anemia likely from chronic blood loss anemia secondary to colon cancer-expect this would resolve with Iron treatment and removal of mass Ovarian Mass/enlarged uterus: possible metastasis but likely from fibroids as patient had a history of myomectomy ACCESSIONER consult with Dr. 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 Case discussed with attending Dr. Hinojosa Visit type - Emergency Visit Emergency Visit: No - New Patient This patient is new to me today: No - Critical Care Critical Care patient: No - Discharge Referral Referred to [facility] Med P.C.: No
[2017-01-06] MEDS ORDERED: MIDAZOLAM HCL 2 MG/2 ML SINGLE DOSE VIAL ONE ×2 (14:29)
[2017-01-06] MEDS ORDERED: PROPOFOL 20 ML ONE (14:42)
[2017-01-06] MEDS ORDERED: ROCURONIUM BROMIDE 50 MG/5 ML VIAL ONE ×2 (14:44→16:05)
[2017-01-06] MEDS ORDERED: ceFAZolin SODIUM 1 GM VIAL IVPB ONE (15:12)
[2017-01-06 15:32] LABS: HIV 1 & 2 AB NEGATIVE; HIV 1 AGp24 NEGATIVE
[2017-01-06] MEDS ORDERED: HYDROmorphone HCL/PF 1 MG/ML VIAL (FOR PYXIS CHARGING ONLY) ONE (15:48)
[2017-01-06] MEDS ORDERED: GLYCOPYRROLATE 0.2 MG/1 ML VIAL ONE ×2 (16:30→16:32)
[2017-01-06] MEDS ORDERED: NEOSTIGMINE METHYLSULFATE 0.5 MG/ML - 10 ML MDV ONE (16:30)
[2017-01-06] MEDS ORDERED: LIDOCAINE HCL/PF 2% SDV 5ML VIAL ONE (17:24)
[2017-01-06] MEDS ORDERED: OXYCODONE/APAP 5/325MG COMBO TABLET PO PRN ×2 (17:40→17:41)
[2017-01-06] MEDS ORDERED: HYDROmorphone HCL CARPU-JECT 1 MG/1 ML DISP.SYRIN IVPB PRN (17:41)
[2017-01-06] MEDS ORDERED: LACTATED RINGERS SOLUTION 1,000 ML IV SCH ×2 (17:45→18:00)
--- NOTE | 2017-01-06 17:53 | OP ---
Operative Note - Note: Operative Date: 01/06/17 Pre-Operative Diagnosis: right colon cancer Operation: laparoscopic right hemicolectomy, biopsy of abd wall implant, removal of possible urachal cyst? umbilical hernia repair Findings: 1.5 cm abd wall implant superior to bladder, unclear significance. Post-Operative Diagnosis: Same as Pre-op Surgeon: Sylvester Hernandez Showroom Salesperson: Nicho Severino Anesthesia: General Specimens Removed: right colon, abd wall implant, urachyl cyst Estimated Blood Loss (mls): 200
[2017-01-06] MEDS ORDERED: ONDANSETRON 4 MG/2 ML VIAL IVPUSH PRN ×2 (18:00)
[2017-01-06] MEDS ORDERED: PROMETHAZINE HCL 25 MG/1 ML VIAL IVPUSH PRN (18:00)
[2017-01-06] MEDS ORDERED: HYDROmorphone HCL CARPU-JECT 2 MG/1 ML DISP.SYRIN ONE (18:01)
[2017-01-06] MEDS ORDERED: ONDANSETRON 4 MG/2 ML VIAL IVPB PRN (18:22)
[2017-01-06] MEDS ORDERED: ACETAMINOPHEN 325 MG TABLET (FP) PO PRN (18:37)
[2017-01-06] MEDS ORDERED: oxyCODONE HCL 5 MG TABLET PO PRN (18:37)
[2017-01-06] MEDS: HYDROmorphone *PCA* 10MG/50ML DISP.SYRIN PCA SCH (18:50)
--- NOTE | 2017-01-06 19:16 | PN ---
Teaching Attending Note Name of Resident: Gilberto Trevino ATTENDING PHYSICIAN STATEMENT I saw and evaluated the patient. I reviewed the resident's note and discussed the case with the resident. I agree with the resident's findings and plan as documented. SUBJECTIVE: no fever or chills, no abd pain , N/V when she was seen in am OBJECTIVE: NAD CV : RRR Lungs : CTAB ext: no edema Abd : soft, minimal TTP in suprapubic area with no rebound tenderness or guarding , ND , NL BS. ASSESSMENT AND PLAN: 31 y/o lady with no PMH who presented for evaluation of R colonic mass seen on CT scan 1- Ascending colon cancer : with no liver lesions on MRI. - R hemicolectomy today. - follow up with sx and ONC as out pt - IVF , pain control , zofran 2- ovarian cyst , need to r/o cancer - tumor markers pending - appreciate INVESTMENT FUND MANAGER , need f/u as out pt as she needs genetic testing for familial cancer syndromes 3- Normocytic anemia:iron def anemia - will start iron supp after sx - Heme on board appreciate help 4- DVT px
--- NOTE | 2017-01-06 20:24 | PN ---
Progress Note (short form) - Note Progress Note: PAtient seen and examined seen post op. comfortable slightly lethargic recovering Last Vital Signs Temp Pulse Resp BP Pulse Ox 97.3 F L 67 14 109/59 100 01/06/17 17:47 01/06/17 20:00 01/06/17 20:00 01/06/17 20:00 01/06/17 20:00 Cor: RSR, No murmurs, No gallops Lungs: Clear to P&A Abd: Soft, spring/dressing Ext:No significant edema Abnormal Lab Results 01/05/17 01/06/17 01/06/17 06:15 06:15 06:15 WBC MCHC INR 1.20 H Fibrinogen Iron Saturation 14 L Alkaline Phosphatase 44 L 01/06/17 01/06/17 06:15 06:15 WBC 3.0 L MCHC 31.8 L INR Fibrinogen 224.0 L Iron Saturation Alkaline Phosphatase Active Medications Generic Name Dose Route Start Last Admin Trade Name Freq PRN Reason Stop Dose Admin Acetaminophen 325 mg 01/06/17 18:37 Tylenol - PO Q4H PRN FEVER OR PAIN Acetaminophen 650 mg 01/06/17 18:39 Tylenol - PO Q4H PRN FEVER OR PAIN Alvimopan 12 mg 01/06/17 22:00 Entereg Capsule (Restricted) - PO BID ANNIE Diphenhydramine HCl 25 mg 01/06/17 18:00 Benadryl Injection - IVPUSH ONCE PRN FOR ITCHING Enoxaparin Sodium 40 mg 01/07/17 10:00 Lovenox - SQ DAILY ANNIE Hydromorphone HCl 1 mg 01/06/17 17:41 01/06/17 18:03 Dilaudid Injection - IVPB 1 mg Q4H PRN Administration PAIN Hydromorphone HCl 10 mg 01/06/17 18:00 01/06/17 18:50 Dilaudid Fence Installer Helper - MECHANICAL RESEARCH ENGINEER 01/13/17 18:00 10 mg MECHANICAL RESEARCH ENGINEER ANNIE Administration Protocol Lactated Ringer's 1,000 mls @ 100 mls/hr 01/06/17 17:45 Lactated Ringers Solution IV ASDIR ANNIE Lactated Ringer's 1,000 mls @ 125 mls/hr 01/06/17 18:00 Lactated Ringers Solution IV ASDIR ANNIE Ondansetron HCl 4 mg 01/06/17 18:00 Zofran Injection IVPUSH 01/07/17 00:01 Q6H PRN NAUSEA AND/OR VOMITING Ondansetron HCl 4 mg 01/06/17 18:00 Zofran Injection IVPUSH 01/07/17 06:01 Q4H PRN NAUSEA AND/OR VOMITING Oxycodone HCl 5 mg 01/06/17 18:37 Roxicodone - PO Q4H PRN Oxycodone HCl 10 mg 01/06/17 18:39 Roxicodone - PO Q4H PRN Promethazine HCl 12.5 mg 01/06/17 18:00 Phenergan Injection - IVPUSH 01/07/17 00:01 Q6H PRN NAUSEA Promethazine HCl 12.5 mg 01/06/17 18:00 Phenergan Injection - IVPB Q6H PRN NAUSEA AND/OR VOMITING Zolpidem Tartrate 5 mg 01/06/17 17:43 Ambien - PO HS PRN INSOMNIA A/P 31 y/o patient with distal ascending colon near obstructing mass, presenting with intermittent abdominal pains, periumblical and intermittent vomiting.Also nauseous and bloating. colonoscopy --near obstructing ascending colon mass. Poorly diff. adenoca with signet ring features. Microsatellite stable. CEA is 32 MRI abdomen did not show metastatic disease CT chest shows nonspecific nodules -- 2 nodules on the rt. ( 2mm and 4,mm) and 1 lesion on left--2mm--nonspecific. Needs monitoring s/p rt.hemicolectomy monitor CBC
[2017-01-06] MEDS: ALVIMOPAN 12 MG CAP PO SCH (23:00)
[2017-01-07 06:06] LABS: HEP B SURFACE AB Non Reactive (.)
--- NOTE | 2017-01-07 07:49 | OP ---
DATE OF OPERATION: 01/06/2017 PREOPERATIVE DIAGNOSIS: Malignant neoplasm of the ascending colon. POSTOPERATIVE DIAGNOSIS: Malignant neoplasm of the ascending colon, abdominal wall implant and urachal cyst and umbilical hernia. PROCEDURE: Laparoscopic right hemicolectomy, biopsy of abdominal implant, removal of urachal cyst, repair of umbilical hernia. SURGEON: Kristopher Hernandez MD SUPERVISOR WET ROOM: Nicho Severino DO ANESTHESIA: General endotracheal anesthesia. ESTIMATED BLOOD LOSS: 200 mL. DESCRIPTION OF PROCEDURE: The patient was brought to the operating room after confirming name, date of , and medical record. She was given appropriate perioperative antibiotics and SCDs for DVT prophylaxis. She was then induced and intubated by the anesthesiologist. Her left arm was then tucked and padded. A Scott catheter was then placed under sterile conditions. She was then prepped and draped in the usual sterile fashion. A 1-inch supraumbilical incision was made, and then bluntly dissected down to the fascia. I used electrocautery to go through the anterior sheath and then I grabbed the posterior sheath and cut the posterior sheath and got into the abdomen bluntly with my finger. I then placed a 12-mm balloon Ross-type trocar into the abdomen and insufflated the abdomen to a pressure of 15 mmHg. At this point, I then placed 5-mm trocars under direct vision with transillumination in the left lower quadrant, the left lateral abdomen, and the left upper quadrant. It was noted that the patient's liver was adhesed to the anterior abdominal wall. At this point, I placed the patient in Trendelenburg position with some extreme right side up so that the small bowel would fall off of the right colon mesentery. It was noted that the patient was very skinny, and I could see the duodenum through the right colon mesentery. At this point, I grabbed the ileocolic pedicle, and I lifted it anteriorly, and I used a [place] to get underneath the vessel taking great care not to injure the duodenum. Once I got around it into the retroperitoneal plane, I used a LigaSure device to take the blood vessel. This was done with 3 brandt proximally and then I did 2 brandt just distal to that and I cut. At this point, the pedicle was grabbed and in a [id number] fashion, I dissected the right colon mesentery off of the retroperitoneum and the duodenum. At this point, once I got to the White line of [place]t, I then turned my attention towards taking it and pulling the colon medially and then using the LigaSure to take it off and then I took the terminal ileum off the retroperitoneum as well with the LigaSure and then I approached the mid transverse colon by pulling the colon towards the feet. Using the LigaSure, I was able to bluntly dissect the colon off of the gallbladder and then use the LigaSure to take down any attachments in the hepatic flexure as well. At this point, with the colon completely medialized, there was a small implant approximately 1.5 cm anteriorly, and this was grabbed. This was noted to be on the patient's right side just above the bladder, and I grabbed it and used the LigaSure to cut it off. Then I placed a clamp on it. I then, with the colon completely medialized, I flattened the patient out and then took out the supraumbilical Ross and then placed my finger through an umbilical hernia and cut the fascia with electrocautery to create a small extraction site. It was noted that there was a hard mass near the umbilicus. On electrocautery, there was some yellow fluid drainage consistent likely with a urachal cyst and that this was removed. Then I placed a wound protector inside the patient. The implant was then taken out the field through the wound protector and sent off for permanent examination, and then I extracorporealized the specimen. I then took the terminal ileum approximately 10 cm from the ileocecal valve with a clamp through the mesentery at the bowel wall junction and then I used a GISSEL 80 stapler to divide the terminal ileum and then the LigaSure to take the mesentery. I then repeated this for the distal colon. At this point, I then felt that the mesentery was not twisted and then aligned the terminal ileum and the transverse colon in a [id number] antimesenteric fashion. I then cut off the corners and then fired a GISSEL 80 stapler to create the coloenterostomy and then closed it with a TA 80 stapler. Upon examination of the mesentery, it appeared that the small bowel mesentery was indeed twisted despite my earlier examination, and at this point, the decision was made to completely redo the anastomosis. I took down the anastomosis with the GISSEL 80 staplers, used the mesentery, took the mesentery with a LigaSure and then repeated the same side to side GISSEL with TA 60 anastomosis. Now with the mesentery definitely not twisted, because it was so thin, I did not want to injure any vessels, and because of the large defect, I did not feel the patient was at risk for internal hernia, I did not close the mesenteric defect, which was large. Once I was satisfied with the hemostasis, I placed all of the bowel inside the abdomen, and I irrigated with 2 L of warm saline and aspirated out any fluid, and there was no active bleeding noted. I then draped a very small omentum over the intestines and then grabbed the fascia and then closed it with No. 1 single strand PDS and tied it to itself. At this point, I then stapled the skin, and dry dressing was placed. The patient will be sent to the recovery room in stable condition. All counts were correct. KRISTOPHER HERNANDEZ M.D. [id number]
[2017-01-07 08:14] LABS: BASOPHIL 0.2 % (0-2.0); EOSINOPHIL 0.2 % (0-4.5); MCH 27.9 pg (25.7-33.7); MCHC 32.5 g/dl (32.0-36.0); MEAN CELL VOLUME 85.8 fl (80-96); MEAN PLT VOLUME 9.7 fl (7.5-11.1); NEUTROPHILS 87.5 % (42.8-82.8); PLATELET COUNT 176 K/MM3 (134-434); WHITE BLOOD COUNT 9.1 K/mm3 (4.0-10.0)
[2017-01-07 08:48] LABS: ALBUMIN 2.9 g/dl (3.4-5.0); ALK PHOS 36 U/L (45-117); ANION GAP 9 (8-16); BILIRUBIN,TOTAL 0.6 mg/dL (0.2-1.0); CALCIUM 7.8 mg/dL (8.5-10.1); CO2 25 mmol/L (21-32); CREATININE 0.6 mg/dL (0.55-1.02); GLUCOSE,RANDOM 88 mg/dL (74-106); MAGNESIUM 1.7 mg/dL (1.8-2.4); PHOSPHOROUS 3.5 mg/dL (2.5-4.9); SGOT/AST 11 U/L (15-37); SGPT/ALT 15 U/L (12-78); TOT PROT 5.3 g/dl (6.4-8.2)
[2017-01-07] MEDS: PROMETHAZINE HCL 25 MG/1 ML VIAL IVPB PRN ×2 (08:50→22:43)
[2017-01-07] MEDS ORDERED: MAGNESIUM SULF 50% (8.12 MEQ/2 ML-1 GM VIAL) IVPB ONE (10:00)
[2017-01-07] MEDS ORDERED: PT OWN MED DRAWER 7, Y5N ONE ×3 (10:14→21:31)
[2017-01-07] MEDS: ALVIMOPAN 12 MG CAP PO SCH ×2 (10:19→22:07)
--- NOTE | 2017-01-07 10:29 | PN ---
Progress Note, Physician Chief Complaint: Status post right hemicolectomy History of Present Illness: 31 year-old female with near-obstructing ascending colon cancer. Status post right hemicolectomy. Patient well. Pain managed with DIRECTOR HOUSEKEEPING. Tolerating clear liquid diet. States positive flatus. - Current Medication List Current Medications: Active Medications Acetaminophen (Tylenol -) 325 mg PO Q4H PRN PRN Reason: FEVER OR PAIN Acetaminophen (Tylenol -) 650 mg PO Q4H PRN PRN Reason: FEVER OR PAIN Alvimopan (Entereg Capsule (Restricted) -) 12 mg PO BID ANNIE Last Admin: 01/06/17 23:00 Dose: 12 mg Diphenhydramine HCl (Benadryl Injection -) 25 mg IVPUSH ONCE PRN PRN Reason: FOR ITCHING Enoxaparin Sodium (Lovenox -) 40 mg SQ DAILY [facility] Lactated Ringer's (Lactated Ringers Solution) 1,000 mls @ 50 mls/hr IV ASDIR [facility] Magnesium Oxide (Mag-Ox -) 400 mg PO ONCE ONE Stop: 01/07/17 22:01 Oxycodone HCl (Roxicodone -) 5 mg PO Q4H PRN Oxycodone HCl (Roxicodone -) 10 mg PO Q4H PRN Promethazine HCl (Phenergan Injection -) 12.5 mg IVPB Q6H PRN PRN Reason: NAUSEA AND/OR VOMITING Last Admin: 01/07/17 08:50 Dose: 12.5 mg Zolpidem Tartrate (Ambien -) 5 mg PO HS PRN PRN Reason: INSOMNIA - Objective Vital Signs: Vital Signs Temperature 98 F 01/07/17 06:00 Pulse Rate 70 01/07/17 06:00 Respiratory Rate 16 01/07/17 06:00 Blood Pressure 96/56 01/07/17 06:00 O2 Sat by Pulse Oximetry (%) 100 01/06/17 22:00 Constitutional: Yes: No Distress, Calm Eyes: Yes: Conjunctiva Clear, EOM Intact HENT: Yes: Atraumatic, Normocephalic, Other Neck: Yes: Supple Cardiovascular: Yes: Regular Rate and Rhythm, Other. No: S3 Respiratory: Yes: Regular Gastrointestinal: Yes: Soft, Other (hypoactive bowel sounds) Wound/Incision: Yes: Clean/Dry, Well Approximated Labs: CBC, BMP 01/07/17 06:20 01/07/17 06:20 INR, PTT INR 1.20 (0.82-1.09) H 01/06/17 06:15 Fibrinogen 224.0 mg/dL (238-498) L 01/06/17 06:15 Problem List - Problems (1) Ascending colon malignant neoplasm Code(s): C18.2 - MALIGNANT NEOPLASM OF ASCENDING COLON Assessment/Plan ASSESSMENT: POD #1 status post laparoscopic right hemicolectomy, biopsy of abdominal wall implant, repair of ventral hernia Doing well PLAN: DC DIRECTOR HOUSEKEEPING DC mattson Out of bed and ambulating Incentive spirometry Oral pain medication Full liquid diet DC planning for 24 to 48 hours
[2017-01-07] MEDS: ENOXAPARIN NA (PORCINE) 40 MG/0.4 ML DISP.SYRIN SQ SCH (10:33)
[2017-01-07] MEDS: LACTATED RINGERS SOLUTION 1,000 ML IV SCH (11:55)
[2017-01-07] MEDS: oxyCODONE HCL 5 MG TABLET PO PRN ×2 (14:34→22:05)
--- NOTE | 2017-01-07 15:31 | PN ---
Progress Note (short form) - Note Progress Note: LINUX SERVER ENGINEER called for consult. 31 year old Para 4, LMP 01/02/17, with 3 previous , admitted due to abdominal pain. She had a colonoscopy showing evidence of colon cancer. She's status post Laparoscopic right Hemicolectomy. She's seen and evaluated; she's lying in bed, c/o incision pain. Trans vaginal sonogram reviewed; there's evidence of small ovarian cyst and endometrial echo complex. ROS : + Incision pain PE : Chest : CTA, no rales Heart : CTA, S1S2, no murmur ABD : + incision pain, mild oozing from wound. Pelvis : Vagina WNL Bladder / Urethra : WNL Uterus / Cervix : WNL Adnexa : No tenderness ASS / PLAN : Colon Cancer Status post Laparoscopic right Hemicolectomy Ovarian cyst R/O Ovarian malignancy F/U HENRIK test ( Tumor marker ) Endometrial biopsy to be done as outpatient Patient is aware
--- NOTE | 2017-01-07 15:36 | PN ---
Progress Note (short form) - Note Progress Note: Hematology/Oncology Progress Note S: Patient doing well today with no major complaints. She is eager to go home. Last Vital Signs Temp Pulse Resp BP Pulse Ox 98.3 F 79 18 101/59 100 01/07/17 15:07 01/07/17 15:07 01/07/17 15:07 01/07/17 15:07 01/06/17 22:00 Physical Exam AOx3, pleasant S1S2 WNL, CTA (BL) Soft abdomen with spring from surgery, op site apepars clean No c/c/e nonfocal neuro exam CBC, BMP 01/07/17 06:20 01/07/17 06:20 Current Medications Generic Name Dose Route Start Last Admin Trade Name Freq PRN Reason Stop Dose Admin Acetaminophen 325 mg 01/06/17 18:37 Tylenol - PO Q4H PRN FEVER OR PAIN Acetaminophen 650 mg 01/06/17 18:39 Tylenol - PO Q4H PRN FEVER OR PAIN Alvimopan 12 mg 01/06/17 22:00 01/07/17 10:19 Entereg Capsule (Restricted) - PO 12 mg BID ANNIE Administration Diphenhydramine HCl 25 mg 01/06/17 18:00 Benadryl Injection - IVPUSH ONCE PRN FOR ITCHING Enoxaparin Sodium 40 mg 01/07/17 10:00 01/07/17 10:33 Lovenox - SQ 40 mg DAILY ANNIE Administration Lactated Ringer's 1,000 mls @ 50 mls/hr 01/07/17 10:45 01/07/17 11:55 Lactated Ringers Solution IV 50 mls/hr ASDIR ANNIE Administration Magnesium Oxide 400 mg 01/07/17 22:00 Mag-Ox - PO 01/07/17 22:01 ONCE ONE Oxycodone HCl 5 mg 01/06/17 18:37 Roxicodone - PO Q4H PRN Oxycodone HCl 10 mg 01/06/17 18:39 01/07/17 14:34 Roxicodone - PO 10 mg Q4H PRN Administration Promethazine HCl 12.5 mg 01/06/17 18:00 01/07/17 08:50 Phenergan Injection - IVPB 12.5 mg Q6H PRN Administration NAUSEA AND/OR VOMITING Zolpidem Tartrate 5 mg 01/06/17 17:43 Ambien - PO HS PRN INSOMNIA A/P : 31 y/o patient with a new diagnosis of colon cancer, ascending colonic near obstructing mass s/p laprascopic right hemicolectomy -POD #1 today, she is in mild pain, continue current pain regimen -monitor CBC, please order one daily -CEA low at 30 with no s/o metastatic disease on MRI, non-specific pulmonary nodules, awaiting path from surgery for further details regarding margins, jumana status etc.
--- NOTE | 2017-01-07 15:36 | PN ---
GI Progress Note Subjective: GI NOte: Has expected postop pain on day 1. No flatus but is tolerating liquids. - Objective Vital Signs: Vital Signs Temperature 98.3 F 01/07/17 15:07 Pulse Rate 79 01/07/17 15:07 Respiratory Rate 18 01/07/17 15:07 Blood Pressure 101/59 01/07/17 15:07 O2 Sat by Pulse Oximetry (%) 100 01/06/17 22:00 Constitutional: Calm Gastrointestinal Inspection: Yes: Scars (healing laparoscopic and short subumbilical incisions) ...Auscultate: Yes: Hypoactive Bowel Sounds ...Palpate: Yes: Other (dorothy-incisional mild tenderness) Labs: CBC, BMP 01/07/17 06:20 01/07/17 06:20 INR, PTT INR 1.20 (0.82-1.09) H 01/06/17 06:15 Fibrinogen 224.0 mg/dL (238-498) L 01/06/17 06:15 Laboratory Tests 01/07/17 06:20 Hgb 8.7 L D Assessment/Plan Postop day 1 for colon cancer. Postop regimen as per the surgical team. Ambulation encouraged.
--- NOTE | 2017-01-07 16:19 | PN ---
Teaching Attending Note Name of Resident: Gilberto Trevino ATTENDING PHYSICIAN STATEMENT I saw and evaluated the patient. I reviewed the resident's note and discussed the case with the resident. I agree with the resident's findings and plan as documented. SUBJECTIVE: Pain in Abd . She thinks she passed gas . felt nauseous and received nausea medication OBJECTIVE: NAD CV : RRR Lungs: CTAB Ext: no edema Abd : soft, hypoactive BS. mid line surgical scar with spring , no discharge . TTP in almost all quadrants . no rebound tenderness or guarding ASSESSMENT AND PLAN: 31 y/o lady with no PMH who presented for evaluation of R colonic mass seen on CT scan 1- Ascending colon poorly differentiated adenocarcinoma, s/p R hemicolectomy 01/06 doing well, has tolerable pain. - Cont pain control - cont IVf , decrease rate - cont clears - cont zofran 2- Ovarian cyst , and enlarged uterus : need to r/o cancer - Tumor markers pending - endometrial bx as out pt 3-Iron def anemia . - will start iron supp when able to take po - Heme on board appreciate help/ HB electropheresis pending 4- DVT px
--- NOTE | 2017-01-07 16:43 | PN ---
Physical Exam: SUBJECTIVE: Patient seen and examined at bedside feels well all questions answered + flatus OBJECTIVE: Vital Signs Period Temp Pulse Resp BP Sys/Quintana Pulse Ox Last 24 Hr 97.3 F-98.6 F 60-79 10-18 96-119/50-69 100-100 GENERAL: Awake, alert, and fully oriented, in no acute distress. HEAD: Normal with no signs of trauma. EYES: Pupils equal, round and reactive to light, extraocular movements intact, sclera anicteric, conjunctiva clear. No lid lag. EARS, NOSE, THROAT: Ears normal, nares patent, oropharynx clear without exudates. Moist mucous membranes. NECK: Normal range of motion, supple LUNGS: Breath sounds equal, clear to auscultation bilaterally HEART: Regular rate and rhythm, normal S1 and S2 without murmur ABDOMEN: Soft, appropriately tender, not distended, normoactive bowel sounds Incision C/D/I MUSCULOSKELETAL: Decreased muscle mass UPPER EXTREMITIES: warm, well-perfused. No peripheral edema. LOWER EXTREMITIES: warm, well-perfused. No calf tenderness. No peripheral edema. NEUROLOGICAL: Cranial nerves II-XII intact. Normal speech. Laboratory Results - last 24 hr 01/06/17 01/07/17 01/07/17 06:15 06:20 06:20 WBC Cancelled Corrected WBC (auto) Cancelled RBC Cancelled Hgb Cancelled Hct Cancelled MCV Cancelled MCHC Cancelled RDW Cancelled Plt Count Cancelled MPV Cancelled Neutrophils % Lymphocytes % Monocytes % Eosinophils % Basophils % Differential Comment Cancelled Platelet Estimate Cancelled Platelet Comment Cancelled RBC Morphology Cancelled Sodium 142 Potassium 4.1 Chloride 108 H Carbon Dioxide 25 Anion Gap 9 BUN 6 L Creatinine 0.6 D Creat Clearance w eGFR > 60 Random Glucose 88 Calcium 7.8 L Phosphorus 3.5 Magnesium 1.7 L Total Bilirubin 0.6 AST 11 L D ALT 15 D Alkaline Phosphatase 36 L Total Protein 5.3 L D Albumin 2.9 L D Hepatitis A Ab Total Negative Hep Bs Antigen Negative Hep Bs Antibody Non reactive Hep B Core Total Ab Negative HIV 1&2 Ag/Ab, 4th Gen Cancelled 01/07/17 06:20 WBC 9.1 D Corrected WBC (auto) RBC 3.11 L D Hgb 8.7 L D Hct 26.7 L D MCV 85.8 MCHC 32.5 RDW 13.0 Plt Count 176 D MPV 9.7 Neutrophils % 87.5 H D Lymphocytes % 6.4 L D Monocytes % 5.7 Eosinophils % 0.2 D Basophils % 0.2 Differential Comment Platelet Estimate Platelet Comment RBC Morphology Sodium Potassium Chloride Carbon Dioxide Anion Gap BUN Creatinine Creat Clearance w eGFR Random Glucose Calcium Phosphorus Magnesium Total Bilirubin AST ALT Alkaline Phosphatase Total Protein Albumin Hepatitis A Ab Total Hep Bs Antigen Hep Bs Antibody Hep B Core Total Ab HIV 1&2 Ag/Ab, 4th Gen Active Medications Generic Name Dose Route Start Last Admin Trade Name Freq PRN Reason Stop Dose Admin Acetaminophen 325 mg 01/06/17 18:37 Tylenol - PO Q4H PRN FEVER OR PAIN Acetaminophen 650 mg 01/06/17 18:39 Tylenol - PO Q4H PRN FEVER OR PAIN Alvimopan 12 mg 01/06/17 22:00 01/07/17 10:19 Entereg Capsule (Restricted) - PO 12 mg BID ANNIE Administration Diphenhydramine HCl 25 mg 01/06/17 18:00 Benadryl Injection - IVPUSH ONCE PRN FOR ITCHING Enoxaparin Sodium 40 mg 01/07/17 10:00 01/07/17 10:33 Lovenox - SQ 40 mg DAILY ANNIE Administration Lactated Ringer's 1,000 mls @ 50 mls/hr 01/07/17 10:45 01/07/17 11:55 Lactated Ringers Solution IV 50 mls/hr ASDIR ANNIE Administration Magnesium Oxide 400 mg 01/07/17 22:00 Mag-Ox - PO 01/07/17 22:01 ONCE ONE Oxycodone HCl 5 mg 01/06/17 18:37 Roxicodone - PO Q4H PRN Oxycodone HCl 10 mg 01/06/17 18:39 01/07/17 14:34 Roxicodone - PO 10 mg Q4H PRN Administration Promethazine HCl 12.5 mg 01/06/17 18:00 01/07/17 08:50 Phenergan Injection - IVPB 12.5 mg Q6H PRN Administration NAUSEA AND/OR VOMITING Zolpidem Tartrate 5 mg 01/06/17 17:43 Ambien - PO HS PRN INSOMNIA ASSESSMENT/PLAN: 31F no PMH found to have multiple findings on CT scan dated 12/28/16 admitted after an obstructing lesion found on colonoscopy in the distal ascending colon just proximal to hepatic flexure. 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 further pathological assessment did not reveal any DNA mismatch defects given the young age of this patient and her father having prostate ca and some kind of bone marrow cancer and mother possibly having breast Ca she should be evaluated as an outpatient for genetic cancer mutations and hereditary cancer syndromes Hepatic hypoattenuation of left lobe: MRI-no liver masses on MRI left lung base nodule: Chest CT-small nodules bilaterally noted will need follow up CT in 6 months Leukopenia: new finding: possibly secondary to cancer protein calorie malnutrition: patient appears cachectic low albumin and total protein levels indicative of malnutrition also give her low amount of lean muscle mass Anemia: Chronic likely secondary to colon mass with intermittent GI bleeding Heme/onc consult appreciated f/u Hb electrophoresis-still pending will follow up all labs send by hematology service iron studies show iron deficieny anemia likely from chronic blood loss anemia secondary to colon cancer-expect this would resolve with Iron treatment and removal of mass Ovarian Mass/enlarged uterus: possible metastasis but likely from fibroids as patient had a history of myomectomy 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 Case discussed with attending Dr. Hinojosa Visit type - Emergency Visit Emergency Visit: No - New Patient This patient is new to me today: No - Critical Care Critical Care patient: No
[2017-01-07] MEDS ORDERED: morphine CARPU-JECT 4 MG/1 ML DISP.SYRIN IVPUSH ONE (16:58)
--- NOTE | 2017-01-07 17:46 | PN ---
Progress Note (short form) - Note Progress Note: Anesthesiology Post-op/Pain Service POD#1 s/p Laparoscopic/laparotomy with right hemicolectomy. Pt. is standing OOB but is visibly uncomfortable; she c/o pain. 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 Currently, she has Oxycodone for analgesia but is now receiving an IV dose of Morphine for breakthrough pain. Phenergan and Scopolamine patch in place for antiemesis. Otherwise, VSS. D/w RN to contact Anesthesia if further management for pain or nausea is needed.
[2017-01-07] MEDS ORDERED: MAGNESIUM OXIDE 400 MG TABLET (FP) PO ONE (22:00)
[2017-01-07] MEDS: ACETAMINOPHEN 325 MG TABLET (FP) PO PRN (22:06)
[2017-01-07] MEDS: ZOLPIDEM TARTRATE 5 MG TABLET PO PRN (22:07)
[2017-01-08] MEDS: oxyCODONE HCL 5 MG TABLET PO PRN ×2 (01:46→08:07)
[2017-01-08] MEDS: ACETAMINOPHEN 325 MG TABLET (FP) PO PRN (01:48)
[2017-01-08] MEDS ORDERED: morphine CARPU-JECT 4 MG/1 ML DISP.SYRIN IVPUSH ONE (02:52)
--- NOTE | 2017-01-08 03:03 | HOSP ---
[id number] [id number] Gastrointestinal: Yes: Abdominal Pain. No: Nausea, Vomiting Genitourinary: No: Dysuria Physical Examination Vital Signs: Vital Signs Temperature 98.3 F 01/07/17 15:07 Pulse Rate 79 01/07/17 15:07 Respiratory Rate 18 01/07/17 15:07 Blood Pressure 101/59 01/07/17 15:07 O2 Sat by Pulse Oximetry (%) 100 01/06/17 22:00 Constitutional: Yes: Mild Distress Eyes: Yes: Conjunctiva Clear, EOM Intact HENT: Yes: Atraumatic, Normocephalic Neck: Yes: Supple, Trachea Midline Cardiovascular: Yes: Regular Rate and Rhythm Respiratory: Yes: CTA Bilaterally Gastrointestinal: Yes: Soft, Distention, Tenderness, Other (no bowel sounds) Extremities: No: Calf Tenderness Edema: LLE: Trace, RLE: Trace Peripheral Pulses: Left Radial: 2+, Right Radial: 2+ Wound/Incision: Yes: Spring Intact (periumbilical spring with scant dried blood, dressing changed. no underlying fluctuance or discharge at incision) Neurological: Yes: Alert, Oriented Psychiatric: Yes: Alert, Oriented Labs: CBC, BMP 01/07/17 06:20 01/07/17 06:20 Hospitalist Encounter Assessment: Pt c/o unbearable pain not relieved with oxycodone. abdominal pain is diffuse and continuos, worse with movement and palpation. feels like she needs to use the bathroom and pass gas but "nothing is coming out." says she has not passed gas since surgery, has been having painful burping continously. was started on full liquid diet, denies nausea/vomiting. Will order KUB to asses for SBO/ileus/torsion/pneumoperitoneum. morphine 4mg IV for pain control Visit type - Emergency Visit Emergency Visit: No - New Patient This patient is new to me today: Yes Date on this admission: 01/08/17 - Critical Care Critical Care patient: No
[2017-01-08] MEDS ORDERED: diphenhydrAMINE HCL 25 MG CAPSULE (FP) PO ONE (03:30)
[2017-01-08] MEDS ORDERED: PT OWN MED DRAWER 7, Y5N ONE ×2 (08:05→10:14)
[2017-01-08 08:21] LABS: MCH 27.9 pg (25.7-33.7); MCHC 32.6 g/dl (32.0-36.0); MEAN CELL VOLUME 85.4 fl (80-96); MEAN PLT VOLUME 9.7 fl (7.5-11.1); PLATELET COUNT 192 K/MM3 (134-434); RDW 12.9 % (11.6-15.6); WHITE BLOOD COUNT 6.9 K/mm3 (4.0-10.0)
[2017-01-08] MEDS: LACTATED RINGERS SOLUTION 1,000 ML IV SCH ×2 (08:22→17:29)
[2017-01-08 08:45] LABS: CALCIUM 8.2 mg/dL (8.5-10.1); COCKROFT - GAULT 153.935; CREATININE 0.6 mg/dL (0.55-1.02); MAGNESIUM 2.1 mg/dL (1.8-2.4)
[2017-01-08] MEDS ORDERED: HYDROmorphone HCL CARPU-JECT 1 MG/1 ML DISP.SYRIN IVPB PRN (10:01)
[2017-01-08] MEDS: ALVIMOPAN 12 MG CAP PO SCH ×2 (10:15→22:42)
[2017-01-08] MEDS: ENOXAPARIN NA (PORCINE) 40 MG/0.4 ML DISP.SYRIN SQ SCH (10:15)
[2017-01-08] MEDS: HYDROmorphone HCL CARPU-JECT 1 MG/1 ML DISP.SYRIN IVPB PRN ×3 (10:28→18:59)
--- NOTE | 2017-01-08 10:45 | PN ---
GI Progress Note Subjective: GI NOte: Had terrible pain last night. Has worsening distension with persistent belching. No flatus. FUA suggests ascites but also has gastric distension. Dr Randhawa has proposed NG insertion which I discussed with Eber. - Objective Vital Signs: Vital Signs Temperature 98.4 F 01/08/17 10:00 Pulse Rate 83 01/08/17 10:00 Respiratory Rate 20 01/08/17 10:00 Blood Pressure 110/68 01/08/17 10:00 O2 Sat by Pulse Oximetry (%) 98 01/07/17 21:00 Constitutional: Anxious Gastrointestinal Inspection: Yes: Distention ...Auscultate: Yes: Hypoactive Bowel Sounds ...Palpate: Yes: Tenderness, Epigastium Labs: CBC, BMP 01/08/17 06:30 01/08/17 06:30 INR, PTT INR 1.20 (0.82-1.09) H 01/06/17 06:15 Fibrinogen 224.0 mg/dL (238-498) L 01/06/17 06:15 Laboratory Tests 01/03/17 01/07/17 01/08/17 14:45 06:20 06:30 WBC 6.9 Albumin 2.9 L D Carcinoembryonic Ag 32.7 H Assessment/Plan Postop ileus and possible ascites. NG placed and so far has yielded only a small amount ( 20cc) of bilious fluid. Position within the stomach is confirmed by auscultation but will confirm with X ray. NG suctioning begun.
--- NOTE | 2017-01-08 11:26 | PN ---
Progress Note (short form) - Note Progress Note: Hematology/Oncology Progress Note S: Patient having more belching and abdominal distention & pain today. Last Vital Signs Temp Pulse Resp BP Pulse Ox 98.4 F 83 20 110/68 98 01/08/17 10:00 01/08/17 10:00 01/08/17 10:00 01/08/17 10:00 01/07/17 21:00 Physical Exam AOx3, pleasant S1S2 WNL, CTA (BL) Soft abdomen with spring from surgery, op site appears clean No c/c/e nonfocal neuro exam CBC, BMP 01/08/17 06:30 01/08/17 06:30 Current Medications Generic Name Dose Route Start Last Admin Trade Name Freq PRN Reason Stop Dose Admin Alvimopan 12 mg 01/06/17 22:00 01/08/17 10:15 Entereg Capsule (Restricted) - PO 12 mg BID ANNIE Administration Diphenhydramine HCl 25 mg 01/06/17 18:00 Benadryl Injection - IVPUSH ONCE PRN FOR ITCHING Enoxaparin Sodium 40 mg 01/07/17 10:00 01/08/17 10:15 Lovenox - SQ 40 mg DAILY NANIE Administration Hydromorphone HCl 0.5 mg 01/08/17 10:01 Dilaudid Injection - IVPB Q4H PRN MODERATE PAIN Hydromorphone HCl 1 mg 01/08/17 10:02 01/08/17 10:28 Dilaudid Injection - IVPB 1 mg Q4H PRN Administration SEVERE PAIN Dextrose/Sodium Chloride 1,000 mls @ 125 mls/hr 01/08/17 11:00 D5-1/2ns - IV ASDIR ANNIE Promethazine HCl 12.5 mg 01/06/17 18:00 01/07/17 22:43 Phenergan Injection - IVPB 12.5 mg Q6H PRN Administration NAUSEA AND/OR VOMITING Zolpidem Tartrate 5 mg 01/06/17 17:43 01/07/17 22:07 Ambien - PO 5 mg HS PRN Administration INSOMNIA A/P : 31 y/o patient with a new diagnosis of colon cancer, ascending colonic near obstructing mass s/p laprascopic right hemicolectomy -POD #2 today, agree with IV dilaudid per primary team for increased pain. NG tube for gastric decompression -monitor CBC, please order one daily, transfuse for Hgb < 8 or plts < 10 -CEA low at 32 with no s/o metastatic disease on MRI, non-specific pulmonary nodules, awaiting path from surgery for further details regarding margins, jumana status etc.
[2017-01-08] MEDS: DEXTROSE 5%-0.45% SALINE 1,000 ML IV SCH ×2 (12:52→19:59)
--- NOTE | 2017-01-08 13:26 | PN ---
Progress Note (short form) - Note Progress Note: Subjective: no fever or chills. Over night had increased pain and distention of abd . KUB was done . this am , NGT was placed to suction and pt feels better now . felt nauseated earlier but no vomiting Objective: Vital Signs: Last Vital Signs Temp Pulse Resp BP Pulse Ox 98.4 F 83 20 110/68 98 01/08/17 10:00 01/08/17 10:00 01/08/17 10:00 01/08/17 10:00 01/07/17 21:00 Physical Exam: NAD CV : RRR Lungs: CTAB Ext: no edema Abd : soft, hypoactive BS. mid line surgical scar with spring , no discharge . TTP in almost all quadrants . no rebound tenderness or guarding ASSESSMENT AND PLAN: 31 y/o lady with no PMH who presented for evaluation of R colonic mass seen on CT scan 1- Ascending colon poorly differentiated adenocarcinoma, s/p R hemicolectomy 01/06 doing well, has tolerable pain. - Cont pain control - cont IVf , decrease rate - cont clears - cont zofran 2- Ovarian cyst , and enlarged uterus : need to r/o cancer - Tumor markers pending - endometrial bx as out pt 3-Iron def anemia . - will start iron supp when able to take po - Heme on board appreciate help/ HB electropheresis pending 4- DVT px Laboratory Results - last 24 hr 01/06/17 01/06/17 01/08/17 06:15 06:15 06:30 WBC 6.9 RBC 2.91 L Hgb 8.1 L Hct 24.9 L MCV 85.4 MCHC 32.6 RDW 12.9 Plt Count 192 MPV 9.7 Sodium Potassium Chloride Carbon Dioxide Anion Gap BUN Creatinine Random Glucose Calcium Magnesium Serum Copper 122 ROBINSON Screen Negative 01/08/17 06:30 WBC RBC Hgb Hct MCV MCHC RDW Plt Count MPV Sodium 141 Potassium 4.4 Chloride 105 Carbon Dioxide 29 Anion Gap 7 L BUN 6 L Creatinine 0.6 Random Glucose 101 Calcium 8.2 L Magnesium 2.1 D Serum Copper ROBINSON Screen Imaging: KUB image and report reviewed. Assessment/Plan: NAD, AAox3 CV : RRR, 3/6 SM at LUSB Lungs: CTAB Ext: no edema Abd : significantly distended compared to yesterday . hypoactive BS. TTP in all quadrants . tympanic ASSESSMENT AND PLAN: 31 y/o lady with no PMH who presented for evaluation of R colonic mass seen on CT scan 1- Ascending colon poorly differentiated adenocarcinoma, s/p R hemicolectomy 01/06 complicated by small bowel obstruction vs ileus . sx improevd after NGT placement - NPO . - cont NGT - cont IVF - cont zofran - Repeat KUB tomorrow - case was d/w Dr. Randhawa 2- Ovarian cyst , and enlarged uterus : need to r/o cancer - Tumor markers pending - endometrial bx as out pt 3-Iron def anemia . worsening HB after xs and IVF administration - will start iron supp when able to take po - no indication fro transfusion - Heme on board appreciate help/ HB electropheresis pending 4- DVT px HLOC Visit type - Emergency Visit Emergency Visit: Yes ED Registration Date: 01/03/17 Care time: The patient presented to the Emergency Department on the above date and was hospitalized for further evaluation of their emergent condition. - New Patient This patient is new to me today: No - Critical Care Critical Care patient: No
[2017-01-08] MEDS: HYDROmorphone *PCA* 10MG/50ML DISP.SYRIN PCA SCH (18:57)
[2017-01-08] MEDS: ZOLPIDEM TARTRATE 5 MG TABLET PO PRN (22:41)
[2017-01-09] MEDS: HYDROmorphone HCL CARPU-JECT 1 MG/1 ML DISP.SYRIN IVPB PRN ×4 (03:56→18:05)
[2017-01-09] MEDS: DEXTROSE 5%-0.45% SALINE 1,000 ML IV SCH ×3 (06:53→16:38)
[2017-01-09 08:13] LABS: MCH 27.7 pg (25.7-33.7); MCHC 32.4 g/dl (32.0-36.0); MEAN CELL VOLUME 85.5 fl (80-96); MEAN PLT VOLUME 9.6 fl (7.5-11.1); PLATELET COUNT 180 K/MM3 (134-434); RDW 12.7 % (11.6-15.6); WHITE BLOOD COUNT 4.3 K/mm3 (4.0-10.0)
[2017-01-09 08:40] LABS: CALCIUM 7.7 mg/dL (8.5-10.1)
[2017-01-09 08:41] LABS: COCKROFT - GAULT 153.935; CREATININE 0.6 mg/dL (0.55-1.02); PHOSPHOROUS 3.4 mg/dL (2.5-4.9)
[2017-01-09] MEDS ORDERED: PT OWN MED DRAWER 7, Y5N ONE ×2 (10:20→20:52)
[2017-01-09] MEDS: ALVIMOPAN 12 MG CAP PO SCH ×3 (10:23→22:16)
[2017-01-09] MEDS: ENOXAPARIN NA (PORCINE) 40 MG/0.4 ML DISP.SYRIN SQ SCH (10:23)
[2017-01-09] MEDS ORDERED: HYDROmorphone HCL CARPU-JECT 1 MG/1 ML DISP.SYRIN IVPB PRN (10:26)
--- NOTE | 2017-01-09 10:32 | PN ---
Progress Note, Physician Chief Complaint: pain from ngt. History of Present Illness: ngt put out 700 yesterday. 450 today so far. no GI fxn yet. pain improving. ambulating. still distended. - Current Medication List Current Medications: Active Medications Alvimopan (Entereg Capsule (Restricted) -) 12 mg PO BID [facility] Last Admin: 01/09/17 10:26 Dose: 12 mg Diphenhydramine HCl (Benadryl Injection -) 25 mg IVPUSH ONCE PRN PRN Reason: FOR ITCHING Enoxaparin Sodium (Lovenox -) 40 mg SQ DAILY [facility] Last Admin: 01/09/17 10:23 Dose: 40 mg Hydromorphone HCl (Dilaudid Injection -) 0.5 mg IVPB Q3H PRN PRN Reason: MODERATE PAIN Hydromorphone HCl (Dilaudid Injection -) 1 mg IVPB Q3H PRN PRN Reason: SEVERE PAIN Dextrose/Sodium Chloride (D5-1/2ns -) 1,000 mls @ 125 mls/hr IV ASDIR [facility] Last Admin: 01/09/17 06:53 Dose: 125 mls/hr Promethazine HCl (Phenergan Injection -) 12.5 mg IVPB Q6H PRN PRN Reason: NAUSEA AND/OR VOMITING Last Admin: 01/07/17 22:43 Dose: 12.5 mg Zolpidem Tartrate (Ambien -) 5 mg PO HS PRN PRN Reason: INSOMNIA Last Admin: 01/08/17 22:41 Dose: 5 mg - Objective Vital Signs: Vital Signs Temperature 98.5 F 01/09/17 06:00 Pulse Rate 85 01/09/17 06:00 Respiratory Rate 18 01/09/17 06:00 Blood Pressure 105/64 01/09/17 06:00 O2 Sat by Pulse Oximetry (%) 97 01/08/17 21:00 Constitutional: Yes: No Distress, Calm Eyes: Yes: Conjunctiva Clear, EOM Intact HENT: Yes: Atraumatic, Normocephalic Neck: Yes: Supple, Trachea Midline Cardiovascular: Yes: Regular Rate and Rhythm Respiratory: Yes: Regular. No: Accessory Muscle Use Gastrointestinal: Yes: Soft, Distention (drum like distension.), Tenderness ( near incision) Genitourinary: No: CVA Tenderness - Left, CVA Tenderness - Right Musculoskeletal: No: Joint Stiffness, Joint Swelling Extremities: No: Calf Tenderness, Erythema Integumentary: No: Erythema, Rash Neurological: Yes: Alert, Oriented Psychiatric: Yes: Alert, Oriented Labs: CBC, BMP 01/09/17 07:00 01/09/17 07:00 INR, PTT INR 1.20 (0.82-1.09) H 01/06/17 06:15 Fibrinogen 224.0 mg/dL (238-498) L 01/06/17 06:15 Problem List - Problems (1) Ascending colon malignant neoplasm Code(s): C18.2 - MALIGNANT NEOPLASM OF ASCENDING COLON (2) Ileus following gastrointestinal surgery Assessment/Plan: cont IVF cont NGT await gi fxn dilaudid IV prn pain d/w pt blood transfusion, she wants to hold off cont daily labs Code(s): K91.3 - POSTPROCEDURAL INTESTINAL OBSTRUCTION
--- NOTE | 2017-01-09 13:50 | PN ---
Physical Exam: SUBJECTIVE: Patient seen and examined at bedside Upset NGT is still in. OBJECTIVE: Vital Signs Period Temp Pulse Resp BP Sys/Quintana Pulse Ox Last 24 Hr 98.4 F-98.9 F 79-85 16-20 105-122/58-74 97-99 GENERAL: Awake, alert, and fully oriented, in no acute distress. HEAD: Normal with no signs of trauma. EYES: Pupils equal, round and reactive to light, extraocular movements intact, sclera anicteric, conjunctiva clear. No lid lag. EARS, NOSE, THROAT: Ears normal, nares patent, oropharynx clear without exudates. Moist mucous membranes. NECK: Normal range of motion, supple LUNGS: Breath sounds equal, clear to auscultation bilaterally HEART: Regular rate and rhythm, normal S1 and S2 without murmur ABDOMEN: Soft, appropriately tender, distended, +bowel sounds Incision C/D/I MUSCULOSKELETAL: Decreased muscle mass UPPER EXTREMITIES: warm, well-perfused. No peripheral edema. LOWER EXTREMITIES: warm, well-perfused. No calf tenderness. No peripheral edema. NEUROLOGICAL: Cranial nerves II-XII intact. Normal speech. PSYCHATRIC: Depressed mood. Tearful Laboratory Results - last 24 hr 01/09/17 01/09/17 07:00 07:00 WBC 4.3 D RBC 2.74 L Hgb 7.6 L Hct 23.4 L MCV 85.5 MCHC 32.4 RDW 12.7 Plt Count 180 MPV 9.6 Sodium 140 Potassium 3.7 Chloride 102 Carbon Dioxide 30 Anion Gap 8 BUN 9 D Creatinine 0.6 Random Glucose 112 H Calcium 7.7 L Phosphorus 3.4 Magnesium 2.0 Active Medications Generic Name Dose Route Start Last Admin Trade Name Freq PRN Reason Stop Dose Admin Alvimopan 12 mg 01/06/17 22:00 01/09/17 10:26 Entereg Capsule (Restricted) - PO 12 mg BID ANNIE Administration Diphenhydramine HCl 25 mg 01/06/17 18:00 Benadryl Injection - IVPUSH ONCE PRN FOR ITCHING Enoxaparin Sodium 40 mg 01/07/17 10:00 01/09/17 10:23 Lovenox - SQ 40 mg DAILY ANNIE Administration Hydromorphone HCl 0.5 mg 01/09/17 10:26 Dilaudid Injection - IVPB Q3H PRN MODERATE PAIN Hydromorphone HCl 1 mg 01/09/17 10:26 Dilaudid Injection - IVPB Q3H PRN SEVERE PAIN Dextrose/Sodium Chloride 1,000 mls @ 125 mls/hr 01/08/17 11:00 01/09/17 06:53 D5-1/2ns - IV 125 mls/hr ASDIR ANNIE Administration Promethazine HCl 12.5 mg 01/06/17 18:00 01/07/17 22:43 Phenergan Injection - IVPB 12.5 mg Q6H PRN Administration NAUSEA AND/OR VOMITING Zolpidem Tartrate 5 mg 01/06/17 17:43 01/08/17 22:41 Ambien - PO 5 mg HS PRN Administration INSOMNIA ASSESSMENT/PLAN: 31F no PMH found to have multiple findings on CT scan dated 12/28/16 admitted after an obstructing lesion found on colonoscopy in the distal ascending colon just proximal to hepatic flexure. 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 tumor is likely primary colon source but pathology will do stains to evaluate PROCUREMENT INSPECTOR source-pending further pathological assessment did not reveal any DNA mismatch defects given the young age of this patient and her father having prostate ca and some kind of bone marrow cancer and mother possibly having breast Ca she should be evaluated as an outpatient for genetic cancer mutations and hereditary cancer syndromes Ileus VS post-operative early SBO NGT to suction still no bowel function NPO IVF Per surgery conservative management and no need for imaging at this time If stays NPO for a long time will consider PPN as she is nutrient deficient Hepatic hypoattenuation of left lobe: MRI-no liver masses on MRI left lung base nodule: Chest CT-small nodules bilaterally noted will need follow up CT in 6 months Leukopenia: new finding: possibly secondary to cancer protein calorie malnutrition: patient appears cachectic low albumin and total protein levels indicative of malnutrition also give her low amount of lean muscle mass will consider PPN Anemia: Chronic likely secondary to colon mass with intermittent GI bleeding Hb 7.6 today-transfuse if Hb <7 Heme/onc consult appreciated f/u Hb electrophoresis-still pending will follow up all labs send by hematology service iron studies show iron deficiency anemia likely from chronic blood loss anemia secondary to colon cancer-expect this would resolve with Iron treatment and removal of mass Ovarian Mass/enlarged uterus: possible metastasis but likely from fibroids as patient had a history of myomectomy PROCUREMENT INSPECTOR consult with Dr. 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 Case discussed with attending Dr. Hinojosa Visit type - Emergency Visit Emergency Visit: No - New Patient This patient is new to me today: No - Critical Care Critical Care patient: No - Discharge Referral Referred to [facility] Med P.C.: No
[2017-01-09] MEDS: KCL 10 MEQ IVPB 100 ML IVPB SCH ×2 (15:06→16:38)
--- NOTE | 2017-01-09 16:41 | PN ---
GI Progress Note Subjective: Patient removed NGT today. Stated that it was too uncomfortable and making her feel as though she did not want to speak to anyone, physicians or family members. No BM/Flatus. States feeling hungry. Patient deferred blood transfusion today. No vomiting. - Objective Vital Signs: Vital Signs Temperature 97.9 F 01/09/17 14:13 Pulse Rate 89 01/09/17 14:13 Respiratory Rate 18 01/09/17 14:13 Blood Pressure 114/73 01/09/17 14:13 O2 Sat by Pulse Oximetry (%) 99 01/09/17 09:00 Constitutional: Calm Eyes: No: Sclera Icterus Cardiovascular: Yes: Regular Rate and Rhythm Gastrointestinal Inspection: Yes: Distention ...Auscultate: Yes: Hyperactive Bowel Sounds ...Palpate: Yes: Tenderness (at incision site) ...Percussion: Yes: Tympanitic (Mild) Edema: No Neurological: Yes: Alert, Oriented Labs: CBC, BMP 01/09/17 07:00 01/09/17 07:00 INR, PTT INR 1.20 (0.82-1.09) H 01/06/17 06:15 Fibrinogen 224.0 mg/dL (238-498) L 01/06/17 06:15 Problem List - Problems (1) Colonic mass Assessment/Plan: S/P Right hemicolectomy with abdominal wall implant biopsy and removal of urachal cyst Now suspected post-op ileus vs. SBO. Patient removed NGT on her own. NPO for now per surgery Encouraged ambulation Ordered repeat CBC Awaiting pathology results Code(s): K63.9 - DISEASE OF INTESTINE, UNSPECIFIED
--- NOTE | 2017-01-09 17:47 | PN ---
Teaching Attending Note Name of Resident: Gilberto Trevino ATTENDING PHYSICIAN STATEMENT I saw and evaluated the patient. I reviewed the resident's note and discussed the case with the resident. I agree with the resident's findings and plan as documented. SUBJECTIVE: no fever or chills , has abd pain and distention . when seen at 11 am , she had NGT . but later on she pulled out did not pass gas yet OBJECTIVE: NAD , flat affect CV: RRR Lungs: CTAB Ext: no edema Abd: soft, hypoactive BS. mid line surgical scar with spring , no discharge . TTP in all quadrants . no rebound tenderness or guarding , distended ( less distended than yesterday ) ASSESSMENT AND PLAN: 31 y/o lady with no PMH who presented for evaluation of R colonic mass seen on CT scan 1- Ascending colon adenocarcinoma, s/p R hemicolectomy 01/06 complicated by SBO vs ileus pulled her NGT and refused re-insertion - NPO - monitor abd exam - IVF , and pain meds - if distention increases and /or N/V will convince pt to put NGT back - D/W Dr. 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
--- NOTE | 2017-01-09 22:08 | PN ---
Progress Note (short form) - Note Progress Note: PAtient seen and examined squatting burping feeling uncomfortable with abdominal distenetion took out NG tube by herself AFVSS Cor: RSR, No murmurs, No gallops Lungs: Clear to P&A Abd: Soft, distended, non tender, no guarding/rigidity Ext:No significant edema Labs/Meds reviewed A/P 31 y/o patient with distal ascending colon near obstructing mass, presenting with intermittent abdominal pains, periumblical and intermittent vomiting.Also nauseous and bloating. colonoscopy --near obstructing ascending colon mass. Poorly diff. adenoca with signet ring features. Microsatellite stable. CEA is 32 MRI abdomen did not show metastatic disease CT chest shows nonspecific nodules -- 2 nodules on the rt. ( 2mm and 4,mm) and 1 lesion on left--2mm--nonspecific. Needs monitoring s/p rt.hemicolectomy now post op. ileus-- took out NG tunbe post op. anemia ---discussed about blood transfusion. patient to think about it. reluctant at this time discussed the benefits/risks in detail
[2017-01-10] MEDS: HYDROmorphone HCL CARPU-JECT 1 MG/1 ML DISP.SYRIN IVPB PRN ×2 (01:16→07:57)
[2017-01-10 08:40] LABS: BASOPHIL 0.1 % (0-2.0); EOSINOPHIL 1.1 % (0-4.5); MCH 27.3 pg (25.7-33.7); MCHC 32.3 g/dl (32.0-36.0); MEAN CELL VOLUME 84.5 fl (80-96); MEAN PLT VOLUME 9.4 fl (7.5-11.1); PLATELET COUNT 205 K/MM3 (134-434); RDW 12.7 % (11.6-15.6); WHITE BLOOD COUNT 4.4 K/mm3 (4.0-10.0)
[2017-01-10] MEDS: DEXTROSE 5%-0.45% SALINE 1,000 ML IV SCH (08:46)
[2017-01-10 08:47] LABS: ALBUMIN 2.7 g/dl (3.4-5.0); ANION GAP 8 (8-16); BILIRUBIN,TOTAL 0.7 mg/dL (0.2-1.0); CALCIUM 7.7 mg/dL (8.5-10.1); CO2 31 mmol/L (21-32); CREATININE 0.5 mg/dL (0.55-1.02); GLUCOSE,RANDOM 118 mg/dL (74-106); LDH 137 U/L (84-246); MAGNESIUM 1.9 mg/dL (1.8-2.4); PHOSPHOROUS 2.6 mg/dL (2.5-4.9); SGOT/AST 10 U/L (15-37); SGPT/ALT 11 U/L (12-78); TOT PROT 5.3 g/dl (6.4-8.2)
[2017-01-10 08:48] LABS: ALK PHOS 39 U/L (45-117)
[2017-01-10 09:00] LABS: POSTMENO ROMA 1.08 (See below); PREMENO ROMA 0.3 (See below)
[2017-01-10] MEDS ORDERED: PT OWN MED DRAWER 7, Y5N ONE ×2 (09:13→21:07)
[2017-01-10] MEDS: ENOXAPARIN NA (PORCINE) 40 MG/0.4 ML DISP.SYRIN SQ SCH (09:27)
[2017-01-10] MEDS: ALVIMOPAN 12 MG CAP PO SCH ×2 (09:27→21:08)
[2017-01-10 10:11] LABS: INR 1.2 (0.82-1.09); PROTHROMBIN TIME (PATIENT) 13.3 SEC (9.98-11.88)
[2017-01-10 10:14] LABS: ACTIVATED PTT 26.4 SECONDS (26.9-34.4)
[2017-01-10] MEDS ORDERED: MAGNESIUM SULF 50% (8.12 MEQ/2 ML-1 GM VIAL) IVPB ONE (10:15)
[2017-01-10] MEDS ORDERED: SODIUM PHOSPHATE - 30 MM in SODIUM CHLORIDE 500 ML IVPB ONE (10:45)
[2017-01-10] MEDS ORDERED: KCL 10 MEQ IVPB 100 ML IVPB SCH (10:45)
--- NOTE | 2017-01-10 10:53 | PN ---
GI Progress Note Subjective: BM's with flatus reported last night BM reported this AM Complains that dilaudid making her nauseous Started on entereg - Objective Vital Signs: Vital Signs Temperature 97.9 F 01/10/17 09:00 Pulse Rate 89 01/10/17 09:00 Respiratory Rate 20 01/10/17 09:00 Blood Pressure 121/55 01/10/17 09:00 O2 Sat by Pulse Oximetry (%) 99 01/09/17 09:00 Constitutional: Calm Eyes: No: Sclera Icterus Cardiovascular: Yes: Regular Rate and Rhythm, Murmur Respiratory: Yes: CTA Bilaterally Gastrointestinal Inspection: Yes: Distention (+ surgical dressing in place, tenderness at site) ...Auscultate: Yes: Normoactive Bowel Sounds ...Palpate: Yes: Tenderness (at surgical site) ...Percussion: Yes: Tympanitic (improved from previous) Edema: No Neurological: Yes: Alert, Oriented Labs: CBC, BMP 01/10/17 07:50 01/10/17 07:15 INR, PTT INR 1.20 (0.82-1.09) H 01/10/17 07:50 Fibrinogen 324.0 mg/dL (238-498) D 01/10/17 07:50 Problem List - Problems (1) Ascending colon malignant neoplasm Assessment/Plan: S/P Right hemicolectomy with abdominal wall implant biopsy and removal of suspected urachal cyst Now post-op ileus. Bowel movements with flatus reported yesterday evening and today NPO for now per surgery On entereg Repeat FUA today Encouraged ambulation Ordered repeat CBC Awaiting pathology results Code(s): C18.2 - MALIGNANT NEOPLASM OF ASCENDING COLON
[2017-01-10] MEDS ORDERED: POTASSIUM PHOSPHATE 30 MM in SODIUM CHLORIDE 500 ML IVPB ONE (11:00)
[2017-01-10] MEDS ORDERED: ACETAMINOPHEN 1000 MG/100 ML VIAL (NON FORMULARY) IVPB PRN (11:33)
[2017-01-10] MEDS: D5-1/2NS+40 MEQ KCL - 1,000 ML IV SCH (11:48)
[2017-01-10] MEDS: morphine CARPU-JECT 4 MG/1 ML DISP.SYRIN IVPUSH PRN ×2 (11:59→20:50)
--- NOTE | 2017-01-10 12:44 | PN ---
Physical Exam: SUBJECTIVE: Patient seen and examined at bedside had 2 BM diarrhea with flatus vomited a few times overnight OBJECTIVE: Vital Signs Period Temp Pulse Resp BP Sys/Quintana Pulse Ox Last 24 Hr 97.9 F-98.6 F 84-95 18-20 100-121/55-74 GENERAL: Awake, alert, and fully oriented, in no acute distress. HEAD: Normal with no signs of trauma. EYES: Pupils equal, round and reactive to light, extraocular movements intact, sclera anicteric, conjunctiva clear. No lid lag. EARS, NOSE, THROAT: Ears normal, nares patent, oropharynx clear without exudates. Moist mucous membranes. NECK: Normal range of motion, supple LUNGS: Breath sounds equal, clear to auscultation bilaterally HEART: Regular rate and rhythm, normal S1 and S2 without murmur ABDOMEN: Soft, appropriately tender, distended, hypoactive bowel sounds Incision C/D/I MUSCULOSKELETAL: Decreased muscle mass UPPER EXTREMITIES: warm, well-perfused. No peripheral edema. LOWER EXTREMITIES: warm, well-perfused. No calf tenderness. No peripheral edema. NEUROLOGICAL: Cranial nerves II-XII intact. Normal speech. PSYCHATRIC: Depressed mood. withdrawn Laboratory Results - last 24 hr 01/05/17 01/10/17 01/10/17 15:14 07:15 07:15 WBC RBC Hgb Hct MCV MCHC RDW Plt Count MPV Neutrophils % Lymphocytes % Monocytes % Eosinophils % Basophils % INR PTT (Actin FS) Fibrinogen Sodium 138 Potassium 3.6 Chloride 99 Carbon Dioxide 31 Anion Gap 8 BUN 8 Creatinine 0.5 L Creat Clearance w eGFR > 60 Random Glucose 118 H Calcium 7.7 L Phosphorus 2.6 D Magnesium 1.9 Total Bilirubin 0.7 AST 10 L ALT 11 L D Alkaline Phosphatase 39 L LD Total 137 Total Protein 5.3 L Albumin 2.7 L CA 125 Antigen 24.7 HENRIK Pre-Men Intrp Low HENRIK Post-Men Intp Low HE4 Ovarian Ca Marker 33 Direct Antiglob Test Negative 01/10/17 01/10/17 07:50 07:50 WBC 4.4 RBC 2.93 L Hgb 8.0 L Hct 24.8 L MCV 84.5 MCHC 32.3 RDW 12.7 Plt Count 205 MPV 9.4 Neutrophils % 79.0 Lymphocytes % 10.6 D Monocytes % 9.2 Eosinophils % 1.1 D Basophils % 0.1 INR 1.20 H PTT (Actin FS) 26.4 L Fibrinogen 324.0 D Sodium Potassium Chloride Carbon Dioxide Anion Gap BUN Creatinine Creat Clearance w eGFR Random Glucose Calcium Phosphorus Magnesium Total Bilirubin AST ALT Alkaline Phosphatase LD Total Total Protein Albumin CA 125 Antigen HENRIK Pre-Men Intrp Low HENRIK Post-Men Intp Low HE4 Ovarian Ca Marker Direct Antiglob Test Active Medications Generic Name Dose Route Start Last Admin Trade Name Freq PRN Reason Stop Dose Admin Acetaminophen 1,000 mg 01/10/17 11:33 Ofirmev Injection - IVPB 01/11/17 05:34 Q6H PRN FEVER OR PAIN Alvimopan 12 mg 01/06/17 22:00 01/10/17 09:27 Entereg Capsule (Restricted) - PO 12 mg BID ANNIE Administration Diphenhydramine HCl 25 mg 01/06/17 18:00 Benadryl Injection - IVPUSH ONCE PRN FOR ITCHING Enoxaparin Sodium 40 mg 01/07/17 10:00 01/10/17 09:27 Lovenox - SQ 40 mg DAILY ANNIE Administration Dextrose/Sodium Chloride 1,000 mls @ 100 mls/hr 01/10/17 10:00 01/10/17 11:48 D5-1/2ns+40 Meq Kcl - IV 100 mls/hr ASDIR ANNIE Administration Potassium Phosphate 30 mm/ 510 mls @ 85 mls/hr 01/10/17 11:00 Sodium Chloride IVPB 01/10/17 16:59 ONCE ONE Morphine Sulfate 4 mg 01/10/17 11:32 01/10/17 11:59 Morphine Injection - IVPUSH 4 mg Q3H PRN Administration PAIN Promethazine HCl 12.5 mg 01/06/17 18:00 01/07/17 22:43 Phenergan Injection - IVPB 12.5 mg Q6H PRN Administration NAUSEA AND/OR VOMITING Zolpidem Tartrate 5 mg 01/06/17 17:43 01/08/17 22:41 Ambien - PO 5 mg HS PRN Administration INSOMNIA ASSESSMENT/PLAN: 31F no PMH found to have multiple findings on CT scan dated 12/28/16 admitted after an obstructing lesion found on colonoscopy in the distal ascending colon just proximal to hepatic flexure. POD #3 s/p Laparoscopic right hemicolectomy Mass of ascending colon: poorly differentiated adenoaCa s/p laparoscopic right hemicolectomy with biopsy of abdominal implant D51/2NS with 40meq K @ 100ml/hr NPO continue enterig Patient removed her NGT as she did not want it. risks explained to patient and she is willing to accept the risks but does not want the NGT in Needs better pain control-increase frquency of dilaudid f/u pathology from colon-pending f/u pathology from biopsied abdominal implant-pending Incentive spirometry-importance of this explained to patient in detail ambulate Triple phase MRI of abdomen per GI - no liver metastasis CEA level-32.7- elevated heme/oncology consult appreciated Albumin and total protein levels low on previous labs in the system from 2012 f/u pathology from colon biopsies-poorly differentiated adenocarcinoma. tumor is likely primary colon source but pathology will do stains to evaluate QUALITY ASSURANCE ENGINEER source-pending further pathological assessment did not reveal any DNA mismatch repair defects given the young age of this patient and her father having prostate ca and some kind of bone marrow cancer and mother possibly having breast Ca she should be evaluated as an outpatient for genetic cancer mutations and hereditary cancer syndromes Ileus VS post-operative early SBO patient refusing NGT and self D/C'ed it still no bowel function NPO IVF Per surgery conservative management and no need for imaging at this time If stays NPO for a long time will consider PPN as she is nutrient deficient change from dilaudid to morphine as she is very nauseous with dilaudid Hepatic hypoattenuation of left lobe: MRI-no liver masses on MRI left lung base nodule: Chest CT-small nodules bilaterally noted will need follow up CT in 6 months Leukopenia: new finding: possibly secondary to cancer protein calorie malnutrition: patient appears cachectic low albumin and total protein levels indicative of malnutrition also given her low amount of lean muscle mass will consider PPN if she is unable to eat Anemia: Chronic likely secondary to colon mass with intermittent GI bleeding Hb 7.6 today-transfuse if Hb <7 Heme/onc consult appreciated f/u Hb electrophoresis-still pending will follow up all labs send by hematology service iron studies show iron deficiency anemia likely from chronic blood loss anemia secondary to colon cancer-expect this would resolve with Iron treatment and removal of mass Ovarian Mass/enlarged uterus: possible metastasis but likely from fibroids as patient had a history of myomectomy QUALITY ASSURANCE ENGINEER consult with Dr. 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 Case discussed with attending Dr. Hinojosa Visit type - Emergency Visit Emergency Visit: Yes ED Registration Date: 01/03/17 Care time: The patient presented to the Emergency Department on the above date and was hospitalized for further evaluation of their emergent condition. - New Patient This patient is new to me today: No - Critical Care Critical Care patient: No - Discharge Referral Referred to [facility] Med P.C.: No
[2017-01-10] MEDS ORDERED: ONDANSETRON 4 MG/2 ML VIAL IVPB PRN (13:27)
--- NOTE | 2017-01-10 13:29 | PN ---
Progress Note, Physician Chief Complaint: nausea/burping History of Present Illness: patient pulled out NGT. +BM and flatus but still very bloated. alot of burping. +nausea. not hungry. - Current Medication List Current Medications: Active Medications Acetaminophen (Ofirmev Injection -) 1,000 mg IVPB Q6H PRN PRN Reason: FEVER OR PAIN Stop: 01/11/17 05:34 Alvimopan (Entereg Capsule (Restricted) -) 12 mg PO BID [facility] Last Admin: 01/10/17 09:27 Dose: 12 mg Diphenhydramine HCl (Benadryl Injection -) 25 mg IVPUSH ONCE PRN PRN Reason: FOR ITCHING Enoxaparin Sodium (Lovenox -) 40 mg SQ DAILY [facility] Last Admin: 01/10/17 09:27 Dose: 40 mg Dextrose/Sodium Chloride (D5-1/2ns+40 Meq Kcl -) 1,000 mls @ 100 mls/hr IV ASDIR [facility] Last Admin: 01/10/17 11:48 Dose: 100 mls/hr Potassium Phosphate 30 mm/ (Sodium Chloride) 510 mls @ 85 mls/hr IVPB ONCE ONE Stop: 01/10/17 16:59 Last Admin: 01/10/17 12:51 Dose: 85 mls/hr Morphine Sulfate (Morphine Injection -) 4 mg IVPUSH Q3H PRN PRN Reason: PAIN Last Admin: 01/10/17 11:59 Dose: 4 mg Promethazine HCl (Phenergan Injection -) 12.5 mg IVPB Q6H PRN PRN Reason: NAUSEA AND/OR VOMITING Last Admin: 01/07/17 22:43 Dose: 12.5 mg Simethicone (Mylicon -) 80 mg PO Q4H PRN PRN Reason: GAS Zolpidem Tartrate (Ambien -) 5 mg PO HS PRN PRN Reason: INSOMNIA Last Admin: 01/08/17 22:41 Dose: 5 mg - Objective Vital Signs: Vital Signs Temperature 97.9 F 01/10/17 09:00 Pulse Rate 89 01/10/17 09:00 Respiratory Rate 20 01/10/17 09:00 Blood Pressure 121/55 01/10/17 09:00 O2 Sat by Pulse Oximetry (%) 99 01/09/17 09:00 Constitutional: Yes: No Distress, Calm Eyes: Yes: Conjunctiva Clear, EOM Intact HENT: Yes: Atraumatic, Normocephalic Neck: Yes: Supple, Trachea Midline Cardiovascular: Yes: Regular Rate and Rhythm Respiratory: Yes: Regular, CTA Bilaterally Gastrointestinal: Yes: Soft, Distention, Tenderness (near incision) Genitourinary: No: CVA Tenderness - Left, CVA Tenderness - Right Breast(s): No: Nipple Inversion, Skin Changes Musculoskeletal: No: Joint Stiffness, Joint Swelling Extremities: No: Calf Tenderness, Erythema Integumentary: No: Erythema, Rash Wound/Incision: Yes: Clean/Dry, Well Approximated, Draining Neurological: Yes: Alert, Oriented Psychiatric: Yes: Alert, Oriented Labs: CBC, BMP 01/10/17 07:50 01/10/17 07:15 INR, PTT INR 1.20 (0.82-1.09) H 01/10/17 07:50 Fibrinogen 324.0 mg/dL (238-498) D 01/10/17 07:50 Problem List - Problems (1) Ascending colon malignant neoplasm Code(s): C18.2 - MALIGNANT NEOPLASM OF ASCENDING COLON (2) Ileus following gastrointestinal surgery Assessment/Plan: cont npo for ileus patient refuses ngt if she vomits will try simethicone and zofran prn. cont IVF await path Code(s): K91.3 - POSTPROCEDURAL INTESTINAL OBSTRUCTION
[2017-01-10 13:50] LABS: URIC ACID 1.5 mg/dL (2.6-7.2)
[2017-01-10 14:15] LABS: Hgb A2 2.1 % (0.7-3.1)
--- NOTE | 2017-01-10 15:19 | PN ---
Teaching Attending Note Name of Resident: Gilberto Trevino ATTENDING PHYSICIAN STATEMENT I saw and evaluated the patient. I reviewed the resident's note and discussed the case with the resident. I agree with the resident's findings and plan as documented. SUBJECTIVE: cont to have Abd pain and distention . had BM . nausea . vomited last night OBJECTIVE: NAD , flat affect CV: RRR Lungs: CTAB Ext: no edema Abd: soft, hypoactive BS. mid line surgical scar with spring , no discharge . TTP in all quadrants . no rebound tenderness or guarding , more distended compared to yesterday's exam ASSESSMENT AND PLAN: 31 y/o lady with no PMH who presented for evaluation of R colonic mass seen on CT scan 1- Ascending colon adenocarcinoma, s/p R hemicolectomy 01/06 complicated by SBO vs ileus ABd is more distended today and pt cont ot have n/V ,but had BM . - NPO -COnt IVF , and pain meds - monitor abd exam . 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
[2017-01-10] MEDS: SIMETHICONE 80 MG TAB.CHEW (FP) PO PRN (16:31)
--- NOTE | 2017-01-10 16:56 | PN ---
Progress Note (short form) - Note Progress Note: Patient seen and examined Complains of bloating Discussion with patient and she seems to be agreeing to NGT Last Vital Signs Temp Pulse Resp BP Pulse Ox 98.2 F 90 16 122/71 99 01/10/17 15:30 01/10/17 15:30 01/10/17 15:30 01/10/17 15:30 01/10/17 09:00 HEENT: EVAN, EOM Intact Oropharynx: No thrush, No mucositis Cor: RSR, No murmurs, No gallops Lungs: diminished breath sounds bilaterally Abd: distended Ext:No significant edema Skin: No rashes, Integument intact CBC, BMP 01/10/17 07:50 01/10/17 07:15 Current Medications Generic Name Dose Route Start Last Admin Trade Name Freq PRN Reason Stop Dose Admin Acetaminophen 1,000 mg 01/10/17 11:33 01/10/17 16:17 Ofirmev Injection - IVPB 01/11/17 05:34 1,000 mg Q6H PRN Administration FEVER OR PAIN Alvimopan 12 mg 01/06/17 22:00 01/10/17 09:27 Entereg Capsule (Restricted) - PO 12 mg BID ANNIE Administration Diphenhydramine HCl 25 mg 01/06/17 18:00 Benadryl Injection - IVPUSH ONCE PRN FOR ITCHING Enoxaparin Sodium 40 mg 01/07/17 10:00 01/10/17 09:27 Lovenox - SQ 40 mg DAILY ANNIE Administration Dextrose/Sodium Chloride 1,000 mls @ 100 mls/hr 01/10/17 10:00 01/10/17 11:48 D5-1/2ns+40 Meq Kcl - IV 100 mls/hr ASDIR ANNIE Administration Potassium Phosphate 30 mm/ 510 mls @ 85 mls/hr 01/10/17 11:00 01/10/17 12:51 Sodium Chloride IVPB 01/10/17 16:59 85 mls/hr ONCE ONE Administration Morphine Sulfate 4 mg 01/10/17 11:32 01/10/17 11:59 Morphine Injection - IVPUSH 4 mg Q3H PRN Administration PAIN Ondansetron HCl 4 mg 01/10/17 13:27 Zofran Injection IVPB Q4H PRN NAUSEA AND/OR VOMITING Promethazine HCl 12.5 mg 01/06/17 18:00 01/07/17 22:43 Phenergan Injection - IVPB 12.5 mg Q6H PRN Administration NAUSEA AND/OR VOMITING Simethicone 80 mg 01/10/17 13:26 01/10/17 16:31 Mylicon - PO 80 mg Q4H PRN Administration GAS Zolpidem Tartrate 5 mg 01/06/17 17:43 01/08/17 22:41 Ambien - PO 5 mg HS PRN Administration INSOMNIA Impression: Adenoca of colon s/p resection- path pending Ovarian cyst vs mass Post op ileus vs SBO Plan: NGT Pathology RECEPTION INTERVIEWER f/u and MRI of pelvis as outpatient. Ongoing post -op care. Problem List - Problems (1) Colonic mass Code(s): K63.9 - DISEASE OF INTESTINE, UNSPECIFIED (2) Anemia Code(s): D64.9 - ANEMIA, UNSPECIFIED (3) Breast nodule Code(s): N63 - UNSPECIFIED LUMP IN BREAST
[2017-01-11] MEDS: morphine CARPU-JECT 4 MG/1 ML DISP.SYRIN IVPUSH PRN ×5 (00:02→19:12)
[2017-01-11] MEDS: D5-1/2NS+40 MEQ KCL - 1,000 ML IV SCH ×2 (00:02→11:04)
--- NOTE | 2017-01-11 09:25 | PN ---
Progress Note (short form) - Note Progress Note: reviewed abdominal x-ray. Increasing small bowel distention. ? SBO vs. ileus. Stopped entereg in setting of ? SBO Problem List - Problems (1) Ascending colon malignant neoplasm Code(s): C18.2 - MALIGNANT NEOPLASM OF ASCENDING COLON
[2017-01-11 10:19] LABS: MCH 27.3 pg (25.7-33.7); MCHC 31.8 g/dl (32.0-36.0); MEAN CELL VOLUME 85.8 fl (80-96); MEAN PLT VOLUME 8.8 fl (7.5-11.1); PLATELET COUNT 264 K/MM3 (134-434); RDW 12.8 % (11.6-15.6)
[2017-01-11 10:56] LABS: COCKROFT - GAULT 184.722; CREATININE 0.5 mg/dL (0.55-1.02); MAGNESIUM 2.3 mg/dL (1.8-2.4); PHOSPHOROUS 2.9 mg/dL (2.5-4.9)
[2017-01-11] MEDS: ENOXAPARIN NA (PORCINE) 40 MG/0.4 ML DISP.SYRIN SQ SCH ×2 (11:07→12:21)
--- NOTE | 2017-01-11 11:53 | PN ---
Physical Exam: SUBJECTIVE: Patient seen and examined at bedside refused NG tube last night still having BM and flatus frustrated as she wants to eat OBJECTIVE: Vital Signs Period Temp Pulse Resp BP Sys/Quintana Pulse Ox Last 24 Hr 97.9 F-98.2 F 89-96 16-20 112-122/64-71 100 GENERAL: Awake, alert, and fully oriented, in no acute distress. HEAD: Normal with no signs of trauma. EYES: Pupils equal, round and reactive to light, extraocular movements intact, sclera anicteric, conjunctiva clear EARS, NOSE, THROAT: Moist mucous membranes. NECK: Normal range of motion, supple LUNGS: Breath sounds equal, clear to auscultation bilaterally HEART: Regular rate and rhythm, normal S1 and S2 without murmur ABDOMEN: Soft, appropriately tender, distended-slightly less than yesterday, + bowel sounds Incision C/D/I MUSCULOSKELETAL: Decreased muscle mass UPPER EXTREMITIES: warm, well-perfused. No peripheral edema. LOWER EXTREMITIES: warm, well-perfused. No calf tenderness. No peripheral edema. NEUROLOGICAL: Cranial nerves II-XII intact. Normal speech. PSYCHATRIC: Depressed mood. withdrawn Laboratory Results - last 24 hr 01/06/17 01/10/17 01/11/17 06:15 07:15 10:05 WBC 5.0 RBC 2.98 L Hgb 8.1 L Hct 25.6 L MCV 85.8 MCHC 31.8 L RDW 12.8 Plt Count 264 D MPV 8.8 Hemoglobin A 97.9 Hemoglobin A2 2.1 Hemoglobin C 0 Hemoglobin S 0 Variant Hemoglobin TNP Hemoglobin Interpret Maternal Rh 0 Hemoglobin Solubility Negative Sodium Potassium Chloride Carbon Dioxide Anion Gap BUN Creatinine Random Glucose Uric Acid 1.5 L Calcium Phosphorus Magnesium 01/11/17 10:05 WBC RBC Hgb Hct MCV MCHC RDW Plt Count MPV Hemoglobin A Hemoglobin A2 Hemoglobin C Hemoglobin S Variant Hemoglobin Hemoglobin Interpret Maternal Rh Hemoglobin Solubility Sodium 139 Potassium 4.3 Chloride 102 Carbon Dioxide 28 Anion Gap 9 BUN 8 Creatinine 0.5 L Random Glucose 100 Uric Acid Calcium 8.0 L Phosphorus 2.9 Magnesium 2.3 D Active Medications Generic Name Dose Route Start Last Admin Trade Name Freq PRN Reason Stop Dose Admin Enoxaparin Sodium 40 mg 01/07/17 10:00 01/11/17 11:07 Lovenox - SQ 40 mg DAILY ANNIE Administration Dextrose/Sodium Chloride 1,000 mls @ 100 mls/hr 01/10/17 10:00 01/11/17 11:04 D5-1/2ns+40 Meq Kcl - IV 100 mls/hr ASDIR ANNIE Administration Morphine Sulfate 4 mg 01/10/17 11:32 01/11/17 10:59 Morphine Injection - IVPUSH 4 mg Q3H PRN Administration PAIN Ondansetron HCl 4 mg 01/10/17 13:27 01/11/17 11:04 Zofran Injection IVPB 4 mg Q4H PRN Administration NAUSEA AND/OR VOMITING Promethazine HCl 12.5 mg 01/06/17 18:00 01/07/17 22:43 Phenergan Injection - IVPB 12.5 mg Q6H PRN Administration NAUSEA AND/OR VOMITING Simethicone 80 mg 01/10/17 13:26 01/10/17 16:31 Mylicon - PO 80 mg Q4H PRN Administration GAS Zolpidem Tartrate 5 mg 01/06/17 17:43 01/08/17 22:41 Ambien - PO 5 mg HS PRN Administration INSOMNIA ASSESSMENT/PLAN: 31F no PMH found to have multiple findings on CT scan dated 12/28/16 admitted after an obstructing lesion found on colonoscopy in the distal ascending colon just proximal to hepatic flexure. 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 s/p laparoscopic right hemicolectomy with biopsy of abdominal implant D51/2NS with 40meq K @ 100ml/hr NPO continue enterig Now agreeable to NGT will place and put on LCWS f/u pathology from colon-pending f/u pathology from biopsied abdominal implant-pending Incentive spirometry-importance of this explained to patient in detail ambulate Triple phase MRI of abdomen per GI - no liver metastasis CEA level-32.7- elevated heme/oncology consult appreciated Albumin and total protein levels low on previous labs in the system from 2012 f/u pathology from colon biopsies-poorly differentiated adenocarcinoma. tumor is likely primary colon source but pathology will do stains to evaluate RESEARCH SPEC source-pending further pathological assessment did not reveal any DNA mismatch repair defects given the young age of this patient and her father having prostate ca and some kind of bone marrow cancer and mother possibly having breast Ca she should be evaluated as an outpatient for genetic cancer mutations and hereditary cancer syndromes Ileus VS post-operative early SBO patient now agreeable to NGT NPO IVF Per surgery conservative management and no need for imaging at this time If stays NPO for a long time will consider PPN as she is nutrient deficient Pain control f/u CXR for NGT placement Hepatic hypoattenuation of left lobe: MRI-no liver masses on MRI left lung base nodule: Chest CT-small nodules bilaterally noted will need follow up CT in 6 months Leukopenia: new finding: possibly secondary to cancer protein calorie malnutrition: patient appears cachectic low albumin and total protein levels indicative of malnutrition also given her low amount of lean muscle mass will consider PPN if she is unable to eat Anemia: Chronic likely secondary to colon mass with intermittent GI bleeding Hb 8.1 today-transfuse if Hb <7 Heme/onc consult appreciated f/u Hb electrophoresis-still pending will follow up all labs send by hematology service iron studies show iron deficiency anemia likely from chronic blood loss anemia secondary to colon cancer-expect this would resolve with Iron treatment and removal of mass Ovarian Mass/enlarged uterus: possible metastasis but likely from fibroids as patient had a history of myomectomy RESEARCH SPEC consult with Dr. 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 patient requesting lab holiday and states she will refuse any labs tomorrow so will not order them Visit type - Emergency Visit Emergency Visit: No - New Patient This patient is new to me today: No - Critical Care Critical Care patient: No - Discharge Referral Referred to [facility] Med P.C.: No
--- NOTE | 2017-01-11 12:41 | PN ---
Teaching Attending Note Name of Resident: Gilberto Trevino ATTENDING PHYSICIAN STATEMENT I saw and evaluated the patient. I reviewed the resident's note and discussed the case with the resident. I agree with the resident's findings and plan as documented. Patient is distended , agreed to NG tube placement. Vital Signs Temperature 98.1 F 01/11/17 06:25 Pulse Rate 92 H 01/11/17 06:25 Respiratory Rate 20 01/11/17 06:25 Blood Pressure 112/64 01/11/17 06:25 O2 Sat by Pulse Oximetry (%) 100 01/10/17 21:00 CBCD WBC 5.0 K/mm3 (4.0-10.0) 01/11/17 10:05 RBC 2.98 M/mm3 (3.60-5.2) L 01/11/17 10:05 Hgb 8.1 GM/dL (10.7-15.3) L 01/11/17 10:05 Hct 25.6 % (32.4-45.2) L 01/11/17 10:05 MCV 85.8 fl (80-96) 01/11/17 10:05 MCHC 31.8 g/dl (32.0-36.0) L 01/11/17 10:05 RDW 12.8 % (11.6-15.6) 01/11/17 10:05 Plt Count 264 K/MM3 (134-434) D 01/11/17 10:05 MPV 8.8 fl (7.5-11.1) 01/11/17 10:05 CMP Sodium 139 mmol/L (136-145) 01/11/17 10:05 Potassium 4.3 mmol/L (3.5-5.1) 01/11/17 10:05 Chloride 102 mmol/L (98-107) 01/11/17 10:05 Carbon Dioxide 28 mmol/L (21-32) 01/11/17 10:05 Anion Gap 9 (8-16) 01/11/17 10:05 BUN 8 mg/dL (7-18) 01/11/17 10:05 Creatinine 0.5 mg/dL (0.55-1.02) L 01/11/17 10:05 Creat Clearance w eGFR > 60 (>60) 01/10/17 07:15 Random Glucose 100 mg/dL (74-106) 01/11/17 10:05 Calcium 8.0 mg/dL (8.5-10.1) L 01/11/17 10:05 Total Bilirubin 0.7 mg/dL (0.2-1.0) 01/10/17 07:15 AST 10 U/L (15-37) L 01/10/17 07:15 ALT 11 U/L (12-78) L D 01/10/17 07:15 Alkaline Phosphatase 39 U/L (45-117) L 01/10/17 07:15 Total Protein 5.3 g/dl (6.4-8.2) L 01/10/17 07:15 Albumin 2.7 g/dl (3.4-5.0) L 01/10/17 07:15 Current Medications Generic Name Dose Route Start Last Admin Trade Name Freq PRN Reason Stop Dose Admin Enoxaparin Sodium 40 mg 01/07/17 10:00 01/11/17 12:21 Lovenox - SQ Not Given DAILY ANNIE Dextrose/Sodium Chloride 1,000 mls @ 100 mls/hr 01/10/17 10:00 01/11/17 11:04 D5-1/2ns+40 Meq Kcl - IV 100 mls/hr ASDIR ANNIE Administration Morphine Sulfate 4 mg 01/10/17 11:32 01/11/17 10:59 Morphine Injection - IVPUSH 4 mg Q3H PRN Administration PAIN Ondansetron HCl 4 mg 01/10/17 13:27 01/11/17 11:04 Zofran Injection IVPB 4 mg Q4H PRN Administration NAUSEA AND/OR VOMITING Promethazine HCl 12.5 mg 01/06/17 18:00 01/07/17 22:43 Phenergan Injection - IVPB 12.5 mg Q6H PRN Administration NAUSEA AND/OR VOMITING Simethicone 80 mg 01/10/17 13:26 01/10/17 16:31 Mylicon - PO 80 mg Q4H PRN Administration GAS Zolpidem Tartrate 5 mg 01/06/17 17:43 01/08/17 22:41 Ambien - PO 5 mg HS PRN Administration INSOMNIA Home Medications Medication Instructions Recorded Multivitamin with Minerals [Icaps 1 each PO DAILY 01/02/17 Plus] [place]-3 Fatty Acids [[place]-3] 1,000 mg PO DAILY 01/02/17 Abdomen: Distended, positive for BS ASSESSMENT AND PLAN: Patient is a 31 y/o lady with no PMHx who presented for evaluation of Right colonic mass seen on CT scan # Acute Abdominal distention , agreed for NG tube placement. discussed with # Ascending colon adenocarcinoma, s/p R hemicolectomy 01/06 complicated by SBO vs ileus continue NPO, IVF, and pain meds, Zofran. # Acute blood loss with hx of chronic iron def anemia: transfuse when Hb < 7, monitor # Possible ovarian cancer , f/u as out pt with OBGYN DVT Px: Lovenox
[2017-01-11] MEDS: BENZOCAINE/MENTH/CETYLPYRD CL 1 EACH LOZENGE MM PRN (14:04)
--- NOTE | 2017-01-11 14:28 | PN ---
Progress Note, Physician Chief Complaint: bloating History of Present Illness: agreed to NGT. output over 3 hrs is 500cc gastric secretions, min bilious. less bloating. +BM. - Current Medication List Current Medications: Active Medications Benzocaine/Menthol (Cepacol Lozenge -) 1 each MM PRN PRN PRN Reason: SORE THROAT Last Admin: 01/11/17 14:04 Dose: 1 each Enoxaparin Sodium (Lovenox -) 40 mg SQ DAILY ANNIE Last Admin: 01/11/17 12:21 Dose: Not Given Dextrose/Sodium Chloride (D5-1/2ns+40 Meq Kcl -) 1,000 mls @ 100 mls/hr IV ASDIR ANNIE Last Admin: 01/11/17 11:04 Dose: 100 mls/hr Morphine Sulfate (Morphine Injection -) 4 mg IVPUSH Q3H PRN PRN Reason: PAIN Last Admin: 01/11/17 14:03 Dose: 4 mg Ondansetron HCl (Zofran Injection) 4 mg IVPB Q4H PRN PRN Reason: NAUSEA AND/OR VOMITING Last Admin: 01/11/17 11:04 Dose: 4 mg Promethazine HCl (Phenergan Injection -) 12.5 mg IVPB Q6H PRN PRN Reason: NAUSEA AND/OR VOMITING Last Admin: 01/07/17 22:43 Dose: 12.5 mg Simethicone (Mylicon -) 80 mg PO Q4H PRN PRN Reason: GAS Last Admin: 01/10/17 16:31 Dose: 80 mg Zolpidem Tartrate (Ambien -) 5 mg PO HS PRN PRN Reason: INSOMNIA Last Admin: 01/08/17 22:41 Dose: 5 mg - Objective Vital Signs: Vital Signs Temperature 97.9 F 01/11/17 10:00 Pulse Rate 82 01/11/17 10:00 Respiratory Rate 18 01/11/17 10:00 Blood Pressure 107/63 01/11/17 10:00 O2 Sat by Pulse Oximetry (%) 100 01/10/17 21:00 Constitutional: Yes: No Distress, Calm Eyes: Yes: Conjunctiva Clear, EOM Intact HENT: Yes: Atraumatic, Normocephalic Neck: Yes: Supple, Trachea Midline Cardiovascular: Yes: Regular Rate and Rhythm Respiratory: Yes: Regular, CTA Bilaterally Gastrointestinal: Yes: Soft, Distention. No: Tenderness ...Rectal Exam: Yes: Deferred Genitourinary: No: CVA Tenderness - Left, CVA Tenderness - Right Musculoskeletal: No: Joint Stiffness, Joint Swelling Extremities: No: Calf Tenderness, Erythema Integumentary: No: Erythema, Rash Wound/Incision: Yes: Clean/Dry, Well Approximated Neurological: Yes: Alert, Oriented Psychiatric: Yes: Alert, Oriented Labs: CBC, BMP 01/11/17 10:05 01/11/17 10:05 INR, PTT INR 1.20 (0.82-1.09) H 01/10/17 07:50 Fibrinogen 324.0 mg/dL (238-498) D 01/10/17 07:50 Problem List - Problems (1) Ascending colon malignant neoplasm Code(s): C18.2 - MALIGNANT NEOPLASM OF ASCENDING COLON (2) Ileus following gastrointestinal surgery Assessment/Plan: cont NGT for now when bloating improves and ngt output decreases will eval for removal. await path cont ivf Code(s): K91.3 - POSTPROCEDURAL INTESTINAL OBSTRUCTION
--- NOTE | 2017-01-11 16:00 | PATH ---
Surgical Pathology Report Patient Name: NEY ANDERSON Med. Rec. #: [id number] /Age/Gender: 1985 (Age: 31) / F Account: [id number] Location: [facility] MED/SURG Taken: 01/06/2017 Received: 01/09/2017 Reported: 01/11/2017 Physicians: MD Wilfredo Bridges D.O. Norman Rosen, M.D. Smitha Mellacheruvu, M.D. Specimen(s) Received A: URACHAL CYST B: RIGHT COLON C: ABDOMINAL WALL IMPLANT Clinical History Abdominal pain Final Diagnosis A. "URACHAL CYST", EXCISION: INVOLVEMENT BY METASTATIC ADENOCARCINOMA MORPHOLOGICALLY SIMILAR TO PART B. B. COLON, RIGHT, HEMICOLECTOMY: COLONIC ADENOCARCINOMA, MODERATELY TO POORLY DIFFERENTIATED, WITH FOCAL SIGNET RING CELL FEATURES. TUMOR SIZE: 3.1 CM. TUMOR EXTENT: TUMOR INVOLVES VISCERAL PERITONEUM (pT4a). SURGICAL RESECTION MARGINS: ALL RESECTION MARGINS INCLUDING PROXIMAL AND DISTAL MUCOSAL AND RADIAL ARE NEGATIVE FOR CARCINOMA; CLOSEST RESECTION MARGIN (RADIAL) IS 3.8 CM FROM CARCINOMA. TUMOR PERFORATION: NOT IDENTIFIED. LYMPHOVASCULAR (SMALL VESSEL) INVASION: IDENTIFIED. LARGE VESSEL (VENOUS) INVASION: FOCALLY IDENTIFIED. PERINEURAL INVASION: SUSPICIOUS. DISCONTINUOUS TUMOR DEPOSITS: NOT IDENTIFIED. APPENDIX: PARTIAL FIBROUS OBLITERATION. SURROUNDING COLON AND SMALL BOWEL: WITHOUT SIGNIFICANT PATHOLOGIC CHANGES. 6 OF 48 LYMPH NODES POSITIVE FOR METASTATIC CARCINOMA (6/48). PATHOLOGIC STAGING: PRIMARY TUMOR: pT4a LYMPH NODES: pN2a DISTANT METASTASIS: pN1b (PARTS A AND C). C. PELVIC ABDOMINAL WALL IMPLANT, EXCISION: INVOLVEMENT BY METASTATIC ADENOCARCINOMA MORPHOLOGICALLY SIMILAR TO PART B. Comment: The prior biopsy ([id number]) showed small fragments of poorly differentiated adenocarcinoma with signet ring cell features. DNA mismatch repair (MMR) protein expression analysis was performed on the prior biopsy showed no defect in DNA mismatch repair proteins expression. Elastic stain (EVG) performed on blocks B7 and B8 supports venous invasion and the visceral peritoneum involvement. Comments Colorectal carcinoma : Surgical Pathology Cancer Case Summary (Checklist) Based on AJCC/UICC TNM, 7th edition Specimen: right colon Procedure: right hemicolectomy Tumor Site: right colon Tumor Size Greatest dimension: 3.1 cm Macroscopic Tumor Perforation _x_ Not identified Histologic Type: adenocarcinoma with focal signet ring cell features Histologic Grade _x_ Mixed low-grade (moderately differentiated) to high grade (poorly differentiated) Microscopic Tumor Extension _x_ Tumor penetrates to the surface of the visceral peritoneum (serosa) Margins Proximal Margin _x_ Uninvolved by invasive carcinoma Distal Margin _x_ Uninvolved by invasive carcinoma Circumferential (Radial) or Mesenteric Margin _x_ Uninvolved by invasive carcinoma If all margins uninvolved by invasive carcinoma: Distance of invasive carcinoma from closest margin: 3.8 cm Specify margin: radial Lymph-Vascular Invasion _x_ Focally identified Perineural Invasion _x_ Suspicious Tumor Deposits (discontinuous extramural extension) _x_ Not identified Pathologic Staging (pTNM) Primary Tumor: pT4a Regional Lymph Nodes: pN2a Number examined: 48 Number involved: 6 Distant Metastasis (pM): pM1b Electronically Signed Vicente Soto M.D. Addendum Reported: 01/16/2017 Addendum Diagnosis Parts A and C: Immunohistochemical stains for CK7 and CK20 performed and interpreted at [facility] on blocks A1 and C1 show the following: the tumor cells are positive for CK20 immunostain. Additional immunohistochemical stain for CDX2 performed on blocks A1 and C1 at [place], [place] ([id number]) and interpreted at [facility] shows the following: the tumor cells are positive for CDX2. These results are supportive of the above impression of metastatic adenocarcinoma of lower GI origin. Vicente Soto M.D. Gross Description A. Received in formalin labeled "urachal cyst" is a 1.6 x 0.8 x 0.6 cm thomas, irregular, unoriented portion of soft tissue. The specimen is inked black and serially sectioned. The specimen is entirely submitted in one cassette. B. Received in formalin labeled "right colon" is a 4 cm in length portion of terminal ileum with an attached 10 cm in length portion of cecum and right colon. The specimen displays 2 stapled mucosal margins as well as abundant attached pericolonic adipose tissue. The serosa is thomas-guan with a focal umbilication. There is a 5 cm in length vermiform appendix attached at the cecum. The mucosa displays a 3.1 x 2.4 cm thomas, polypoid mass in the area of the umbilication. The mass is at 4.2 cm from the distal mucosal margin of resection and 3.8 cm from the mesenteric margin of resection. The mass invades through the muscularis and possibly into the pericolonic adipose tissue. The remaining mucosa is thomas with normal folds. Also received within the same container are 2 thomas portions of small bowel stapled together, each with stapled mucosal margins. The specimens measure 4.0 and 4.5 cm in length. No mucosal masses are identified. Sectioning of the pericolonic adipose tissue reveals multiple thomas lymph nodes. Bindery Helper sections are submitted in 27 cassettes as follows: 1-terminal ileum mucosal margin of resection; 2-distal mucosal margin of resection; 3-shave of mesenteric margin of resection; 4-appendix; 5-8-mass; 9-uninvolved terminal ileum; 10-uninvolved distal mucosa; 50-00-aqmvpdadbvteia separately received portions of bowel; 13-14-one whole bisected lymph node; 15-16-one whole bisected lymph node each; 25-62-hpchgefy lymph nodes. C. Received in formalin labeled "abdominal wall implant" is a 1.4 x 1.0 x 0.7 cm thomas, firm nodule. The specimen is bisected and entirely submitted in one cassette. 01/09/2017 saudi01/09/2017
[2017-01-11] MEDS: SIMETHICONE 80 MG TAB.CHEW (FP) PO PRN (19:12)
--- NOTE | 2017-01-11 22:41 | PN ---
Progress Note (short form) - Note Progress Note: PAtient seen and examined NG tube replaced feels bloated Last Vital Signs Temp Pulse Resp BP Pulse Ox 98.9 F 92 H 20 112/72 100 01/11/17 17:25 01/11/17 17:25 01/11/17 17:25 01/11/17 17:25 01/11/17 09:00 Cor: RSR, No murmurs, No gallops Lungs: Clear to P&A Abd: Soft, distended, non tender, no guarding/rigidity Ext:No significant edema Labs/Meds reviewed A/P 31 y/o patient with distal ascending colon near obstructing mass, presenting with intermittent abdominal pains, periumblical and intermittent vomiting.Also nauseous and bloating. colonoscopy --near obstructing ascending colon mass. Poorly diff. adenoca with signet ring features. Microsatellite stable. CEA is 32 MRI abdomen did not show metastatic disease CT chest shows nonspecific nodules -- 2 nodules on the rt. ( 2mm and 4,mm) and 1 lesion on left--2mm--nonspecific. Needs monitoring s/p rt.hemicolectomy. awaiting path now post op. ileus- NG tube to drainage post op. anemia --- stable
[2017-01-12] MEDS: morphine CARPU-JECT 4 MG/1 ML DISP.SYRIN IVPUSH PRN ×3 (00:58→22:25)
[2017-01-12] MEDS: BENZOCAINE/MENTH/CETYLPYRD CL 1 EACH LOZENGE MM PRN (03:04)
[2017-01-12] MEDS: SIMETHICONE 80 MG TAB.CHEW (FP) PO PRN (10:43)
[2017-01-12] MEDS: D5-1/2NS+40 MEQ KCL - 1,000 ML IV SCH (10:43)
[2017-01-12] MEDS: ENOXAPARIN NA (PORCINE) 40 MG/0.4 ML DISP.SYRIN SQ SCH (10:43)
--- NOTE | 2017-01-12 12:44 | PN ---
Progress Note, Physician Chief Complaint: NGT bothering her. History of Present Illness: +BM. less distension. NGT 600 but clear liquid. I reviewed path with patient alone (stage 4). - Current Medication List Current Medications: Active Medications Benzocaine/Menthol (Cepacol Lozenge -) 1 each MM PRN PRN PRN Reason: SORE THROAT Last Admin: 01/12/17 03:04 Dose: 1 each Enoxaparin Sodium (Lovenox -) 40 mg SQ DAILY ANNIE Last Admin: 01/12/17 10:43 Dose: Not Given Dextrose/Sodium Chloride (D5-1/2ns+40 Meq Kcl -) 1,000 mls @ 100 mls/hr IV ASDIR ANNIE Last Admin: 01/12/17 10:43 Dose: Not Given Morphine Sulfate (Morphine Injection -) 4 mg IVPUSH Q3H PRN PRN Reason: PAIN Last Admin: 01/12/17 00:58 Dose: 4 mg Ondansetron HCl (Zofran Injection) 4 mg IVPB Q4H PRN PRN Reason: NAUSEA AND/OR VOMITING Last Admin: 01/11/17 11:04 Dose: 4 mg Promethazine HCl (Phenergan Injection -) 12.5 mg IVPB Q6H PRN PRN Reason: NAUSEA AND/OR VOMITING Last Admin: 01/07/17 22:43 Dose: 12.5 mg Simethicone (Mylicon -) 80 mg PO Q4H PRN PRN Reason: GAS Last Admin: 01/12/17 10:43 Dose: 80 mg Zolpidem Tartrate (Ambien -) 5 mg PO HS PRN PRN Reason: INSOMNIA Last Admin: 01/08/17 22:41 Dose: 5 mg - Objective Vital Signs: Vital Signs Temperature 98.4 F 01/12/17 06:33 Pulse Rate 79 01/12/17 06:33 Respiratory Rate 16 01/12/17 06:33 Blood Pressure 113/64 01/12/17 06:33 O2 Sat by Pulse Oximetry (%) 100 01/11/17 21:00 Constitutional: Yes: No Distress, Calm Eyes: Yes: Conjunctiva Clear, EOM Intact HENT: Yes: Atraumatic, Normocephalic Neck: Yes: Supple, Trachea Midline Cardiovascular: Yes: Regular Rate and Rhythm Respiratory: Yes: Regular, CTA Bilaterally Gastrointestinal: Yes: Soft, Distention (alot less distended.). No: Tenderness ...Rectal Exam: Yes: Deferred Genitourinary: No: CVA Tenderness - Left, CVA Tenderness - Right Musculoskeletal: No: Joint Stiffness, Joint Swelling Extremities: No: Amputation, Calf Tenderness Integumentary: No: Erythema, Rash Wound/Incision: Yes: Clean/Dry, Well Approximated Neurological: Yes: Alert, Oriented Psychiatric: Yes: Alert, Oriented Labs: CBC, BMP 01/11/17 10:05 01/11/17 10:05 INR, PTT INR 1.20 (0.82-1.09) H 01/10/17 07:50 Fibrinogen 324.0 mg/dL (238-498) D 01/10/17 07:50 Problem List - Problems (1) Ascending colon malignant neoplasm Assessment/Plan: stage 4 colon cancer with peritoneal spread likelihoof of ovarian met is higher ileus improving melva clamp ngt start clears if no N/V by 8pm can remove NGT Code(s): C18.2 - MALIGNANT NEOPLASM OF ASCENDING COLON (2) Ileus following gastrointestinal surgery Code(s): K91.3 - POSTPROCEDURAL INTESTINAL OBSTRUCTION
--- NOTE | 2017-01-12 14:47 | PN ---
Physical Exam: SUBJECTIVE: Patient seen and examined at bedside NG tube clamped by surgery and given clears so far tolerating it She is having bowel movements and flatus In slightly better spirits as family is at bedside this afternoon OBJECTIVE: Vital Signs Period Temp Pulse Resp BP Sys/Quintana Pulse Ox Last 24 Hr 97.9 F-98.9 F 79-92 16-20 112-134/64-72 100 GENERAL: Awake, alert, and fully oriented, in no acute distress. HEAD: Normal with no signs of trauma. EYES: Pupils equal, round and reactive to light, extraocular movements intact, sclera anicteric, conjunctiva clear EARS, NOSE, THROAT: Moist mucous membranes. NECK: Normal range of motion, supple LUNGS: Breath sounds equal, clear to auscultation bilaterally HEART: Regular rate and rhythm, normal S1 and S2 without murmur ABDOMEN: Soft, appropriately tender, distended- less than yesterday, +bowel sounds Incision C/D/I MUSCULOSKELETAL: Decreased muscle mass UPPER EXTREMITIES: warm, well-perfused. No peripheral edema. LOWER EXTREMITIES: warm, well-perfused. No calf tenderness. No peripheral edema. NEUROLOGICAL: Cranial nerves II-XII intact. Normal speech. PSYCHATRIC: less depressed mood than yesterday less withdrawn than yesterday Active Medications Generic Name Dose Route Start Last Admin Trade Name Freq PRN Reason Stop Dose Admin Benzocaine/Menthol 1 each 01/11/17 13:24 01/12/17 03:04 Cepacol Lozenge - MM 1 each PRN PRN Administration SORE THROAT Enoxaparin Sodium 40 mg 01/07/17 10:00 01/12/17 10:43 Lovenox - SQ Not Given DAILY ANNIE Dextrose/Sodium Chloride 1,000 mls @ 100 mls/hr 01/10/17 10:00 01/12/17 10:43 D5-1/2ns+40 Meq Kcl - IV Not Given ASDIR ANNIE Morphine Sulfate 4 mg 01/10/17 11:32 01/12/17 12:43 Morphine Injection - IVPUSH 4 mg Q3H PRN Administration PAIN Ondansetron HCl 4 mg 01/10/17 13:27 01/11/17 11:04 Zofran Injection IVPB 4 mg Q4H PRN Administration NAUSEA AND/OR VOMITING Promethazine HCl 12.5 mg 01/06/17 18:00 01/07/17 22:43 Phenergan Injection - IVPB 12.5 mg Q6H PRN Administration NAUSEA AND/OR VOMITING Simethicone 80 mg 01/10/17 13:26 01/12/17 10:43 Mylicon - PO 80 mg Q4H PRN Administration GAS Zolpidem Tartrate 5 mg 01/06/17 17:43 01/08/17 22:41 Ambien - PO 5 mg HS PRN Administration INSOMNIA ASSESSMENT/PLAN: 31F no PMH found to have multiple findings on CT scan dated 12/28/16 admitted after an obstructing lesion found on colonoscopy in the distal ascending colon just proximal to hepatic flexure. POD #6 s/p Laparoscopic right hemicolectomy Mass of ascending colon: poorly differentiated adenoaCa s/p laparoscopic right hemicolectomy with biopsy of abdominal implant D51/2NS with 40meq K @ 100ml/hr NPO enetrig stopped NGT to LCWS f/u pathology from colon-poorly differentiated feliz Ca. Lymphovascular invasion. lymph nodes positive-poor prognosis Dr. Schaffer contacted will personally speak to the patient tomorrow when he comes into the hospital. Patient requesting to speak to patient f/u pathology from biopsied abdominal implant-same pathology as above Incentive spirometry-importance of this explained to patient in detail ambulate Triple phase MRI of abdomen per GI - no liver metastasis CEA level-32.7- elevated Albumin and total protein levels low on previous labs in the system from 2012 pathology from colon biopsies-poorly differentiated adenocarcinoma. tumor is likely primary colon source but pathology will do stains to evaluate FIRE WARDEN source- pending further pathological assessment did not reveal any DNA mismatch repair defects given the young age of this patient and her father having prostate ca and some kind of bone marrow cancer and mother possibly having breast Ca she should be evaluated as an outpatient for genetic cancer mutations and hereditary cancer syndromes Ileus VS post-operative early SBO Clamp NGT and give CLD per surgery if does not have vomiting will remove at 8pm IVF consider PPN if fails PO diet Pain control Hepatic hypoattenuation of left lobe: MRI-no liver masses on MRI left lung base nodule: Chest CT-small nodules bilaterally noted will need follow up CT in 6 months Leukopenia: new finding: possibly secondary to cancer protein calorie malnutrition: patient appears cachectic low albumin and total protein levels indicative of malnutrition also given her low amount of lean muscle mass will consider PPN if she is unable to eat Anemia: Chronic likely secondary to colon mass with intermittent GI bleeding Transfuse PRN Heme/onc consult appreciated f/u Hb electrophoresis-no significant findings f/u hematology iron studies show iron deficiency anemia likely from chronic blood loss anemia secondary to colon cancer-expect this would resolve with Iron treatment and removal of mass Ovarian Mass/enlarged uterus: possible metastasis but likely from fibroids as patient had a history of myomectomy 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 Poor prognosis per Dr. Schaffer Patient made aware of pathological findings. Dr. Schaffer to speak to patient about findings treatment options and prognosis Visit type - Emergency Visit Emergency Visit: No - New Patient This patient is new to me today: No - Critical Care Critical Care patient: No - Discharge Referral Referred to [facility] Med P.C.: No
--- NOTE | 2017-01-12 14:54 | PN ---
Teaching Attending Note Name of Resident: Gilberto Trevino ATTENDING PHYSICIAN STATEMENT I saw and evaluated the patient. I reviewed the resident's note and discussed the case with the resident. I agree with the resident's findings and plan as documented. Comfortable, no further draining, NG tube is in place no further drainage. Had a BM this morning , Abdomen less distension. NGT 600 but clear liquid. Vital Signs Temperature 98.4 F 01/12/17 06:33 Pulse Rate 79 01/12/17 06:33 Respiratory Rate 16 01/12/17 06:33 Blood Pressure 113/64 01/12/17 06:33 O2 Sat by Pulse Oximetry (%) 100 01/11/17 21:00 CBCD WBC 5.0 K/mm3 (4.0-10.0) 01/11/17 10:05 RBC 2.98 M/mm3 (3.60-5.2) L 01/11/17 10:05 Hgb 8.1 GM/dL (10.7-15.3) L 01/11/17 10:05 Hct 25.6 % (32.4-45.2) L 01/11/17 10:05 MCV 85.8 fl (80-96) 01/11/17 10:05 MCHC 31.8 g/dl (32.0-36.0) L 01/11/17 10:05 RDW 12.8 % (11.6-15.6) 01/11/17 10:05 Plt Count 264 K/MM3 (134-434) D 01/11/17 10:05 MPV 8.8 fl (7.5-11.1) 01/11/17 10:05 CMP Sodium 139 mmol/L (136-145) 01/11/17 10:05 Potassium 4.3 mmol/L (3.5-5.1) 01/11/17 10:05 Chloride 102 mmol/L (98-107) 01/11/17 10:05 Carbon Dioxide 28 mmol/L (21-32) 01/11/17 10:05 Anion Gap 9 (8-16) 01/11/17 10:05 BUN 8 mg/dL (7-18) 01/11/17 10:05 Creatinine 0.5 mg/dL (0.55-1.02) L 01/11/17 10:05 Creat Clearance w eGFR > 60 (>60) 01/10/17 07:15 Random Glucose 100 mg/dL (74-106) 01/11/17 10:05 Calcium 8.0 mg/dL (8.5-10.1) L 01/11/17 10:05 Total Bilirubin 0.7 mg/dL (0.2-1.0) 01/10/17 07:15 AST 10 U/L (15-37) L 01/10/17 07:15 ALT 11 U/L (12-78) L D 01/10/17 07:15 Alkaline Phosphatase 39 U/L (45-117) L 01/10/17 07:15 Total Protein 5.3 g/dl (6.4-8.2) L 01/10/17 07:15 Albumin 2.7 g/dl (3.4-5.0) L 01/10/17 07:15 Current Medications Generic Name Dose Route Start Last Admin Trade Name Freq PRN Reason Stop Dose Admin Benzocaine/Menthol 1 each 01/11/17 13:24 01/12/17 03:04 Cepacol Lozenge - MM 1 each PRN PRN Administration SORE THROAT Enoxaparin Sodium 40 mg 01/07/17 10:00 01/12/17 10:43 Lovenox - SQ Not Given DAILY ANNIE Dextrose/Sodium Chloride 1,000 mls @ 100 mls/hr 01/10/17 10:00 01/12/17 10:43 D5-1/2ns+40 Meq Kcl - IV Not Given ASDIR ANNIE Morphine Sulfate 4 mg 01/10/17 11:32 01/12/17 12:43 Morphine Injection - IVPUSH 4 mg Q3H PRN Administration PAIN Ondansetron HCl 4 mg 01/10/17 13:27 01/11/17 11:04 Zofran Injection IVPB 4 mg Q4H PRN Administration NAUSEA AND/OR VOMITING Promethazine HCl 12.5 mg 01/06/17 18:00 01/07/17 22:43 Phenergan Injection - IVPB 12.5 mg Q6H PRN Administration NAUSEA AND/OR VOMITING Simethicone 80 mg 01/10/17 13:26 01/12/17 10:43 Mylicon - PO 80 mg Q4H PRN Administration GAS Zolpidem Tartrate 5 mg 01/06/17 17:43 01/08/17 22:41 Ambien - PO 5 mg HS PRN Administration INSOMNIA Home Medications Medication Instructions Recorded Multivitamin with Minerals [Icaps 1 each PO DAILY 01/02/17 Plus] [place]-3 Fatty Acids [[place]-3] 1,000 mg PO DAILY 01/02/17 Abdomen:less Distended, positive for BS CEA level-32.7- elevated Triple phase MRI of abdomen per GI - no liver metastasis ASSESSMENT AND PLAN: Patient is a 31 y/o lady with no PMHx who presented for evaluation of Right colonic mass seen on CT scan # Ascending colon adenocarcinoma, s/p R hemicolectomy on 01/06 #Mass of ascending colon: poorly differentiated adenoaCa s/p laparoscopic right hemicolectomy with biopsy of abdominal implant pathology report :poorly differentiated feliz Ca. Lymphovascular invasion. lymph nodes positive-poor prognosis f/u pathology from biopsied abdominal implant-same pathology as above patient is requesting to discuss further treatment and management. #Acute ileus s/p NG tube , improving will remove NG tube tonight once tolerates fluid # Acute blood loss with hx of chronic iron def anemia: transfuse when Hb < 7, monitor # Possible ovarian cancer , f/u as out pt with OBGYN DVT Px: Lovenox
[2017-01-12] MEDS ORDERED: DEXTROSE 5%-0.45% SALINE 1,000 ML IV SCH (15:15)
[2017-01-13] MEDS: ENOXAPARIN NA (PORCINE) 40 MG/0.4 ML DISP.SYRIN SQ SCH (10:45)
--- NOTE | 2017-01-13 10:54 | PN ---
Progress Note, Physician Chief Complaint: none History of Present Illness: patient shawna clears. +BM. less distension. NGT out last night at 8pm as previously instructed. - Current Medication List Current Medications: Active Medications Benzocaine/Menthol (Cepacol Lozenge -) 1 each MM PRN PRN PRN Reason: SORE THROAT Last Admin: 01/12/17 03:04 Dose: 1 each Enoxaparin Sodium (Lovenox -) 40 mg SQ DAILY ANNIE Last Admin: 01/13/17 10:45 Dose: 40 mg Dextrose/Sodium Chloride (D5-1/2ns -) 1,000 mls @ 100 mls/hr IV ASDIR ANNIE Last Admin: 01/12/17 22:16 Dose: 100 mls/hr Morphine Sulfate (Morphine Injection -) 4 mg IVPUSH Q3H PRN PRN Reason: PAIN Last Admin: 01/12/17 22:25 Dose: 4 mg Ondansetron HCl (Zofran Injection) 4 mg IVPB Q4H PRN PRN Reason: NAUSEA AND/OR VOMITING Last Admin: 01/11/17 11:04 Dose: 4 mg Promethazine HCl (Phenergan Injection -) 12.5 mg IVPB Q6H PRN PRN Reason: NAUSEA AND/OR VOMITING Last Admin: 01/07/17 22:43 Dose: 12.5 mg Simethicone (Mylicon -) 80 mg PO Q4H PRN PRN Reason: GAS Last Admin: 01/12/17 10:43 Dose: 80 mg Zolpidem Tartrate (Ambien -) 5 mg PO HS PRN PRN Reason: INSOMNIA Last Admin: 01/08/17 22:41 Dose: 5 mg - Objective Vital Signs: Vital Signs Temperature 98.4 F 01/13/17 06:00 Pulse Rate 90 01/13/17 06:00 Respiratory Rate 18 01/13/17 06:00 Blood Pressure 107/62 01/13/17 06:00 O2 Sat by Pulse Oximetry (%) 99 01/12/17 21:00 Constitutional: Yes: No Distress, Calm Eyes: Yes: Conjunctiva Clear, EOM Intact HENT: Yes: Atraumatic, Normocephalic Neck: Yes: Supple, Trachea Midline Respiratory: Yes: CTA Bilaterally Gastrointestinal: Yes: Soft, Distention (less distended). No: Tenderness ...Rectal Exam: Yes: Deferred Genitourinary: No: CVA Tenderness - Left, CVA Tenderness - Right Musculoskeletal: No: Joint Stiffness, Joint Swelling Extremities: No: Calf Tenderness, Erythema Integumentary: No: Erythema, Rash Wound/Incision: Yes: Clean/Dry, Well Approximated Neurological: Yes: Alert, Oriented Psychiatric: Yes: Alert, Oriented Labs: CBC, BMP 01/11/17 10:05 01/11/17 10:05 INR, PTT INR 1.20 (0.82-1.09) H 01/10/17 07:50 Fibrinogen 324.0 mg/dL (238-498) D 01/10/17 07:50 Problem List - Problems (1) Ascending colon malignant neoplasm Code(s): C18.2 - MALIGNANT NEOPLASM OF ASCENDING COLON (2) Ileus following gastrointestinal surgery Code(s): K91.3 - POSTPROCEDURAL INTESTINAL OBSTRUCTION
--- NOTE | 2017-01-13 11:43 | PN ---
Physical Exam: SUBJECTIVE: Patient seen and examined at bedside tolerated clear liquid diet no nausea or vomiting feels less distended Refused labs this morning OBJECTIVE: Vital Signs Period Temp Pulse Resp BP Sys/Quintana Pulse Ox Last 24 Hr 98 F-98.4 F 81-98 16-20 105-116/55-69 99 GENERAL: Awake, alert, and fully oriented, in no acute distress. HEAD: Normal with no signs of trauma. EYES: Pupils equal, round and reactive to light, extraocular movements intact, sclera anicteric, conjunctiva clear EARS, NOSE, THROAT: Moist mucous membranes. NECK: Normal range of motion, supple LUNGS: Breath sounds equal, clear to auscultation bilaterally HEART: Regular rate and rhythm, normal S1 and S2 ABDOMEN: Soft, appropriately tender, distended- less than yesterday, +bowel sounds Incision C/D/I MUSCULOSKELETAL: Decreased muscle mass UPPER EXTREMITIES: warm, well-perfused. No peripheral edema. LOWER EXTREMITIES: warm, well-perfused. No calf tenderness. No peripheral edema. NEUROLOGICAL: Cranial nerves II-XII intact. Normal speech. PSYCHATRIC: less depressed mood than yesterday less withdrawn than yesterday Active Medications Generic Name Dose Route Start Last Admin Trade Name Freq PRN Reason Stop Dose Admin Benzocaine/Menthol 1 each 01/11/17 13:24 01/12/17 03:04 Cepacol Lozenge - MM 1 each PRN PRN Administration SORE THROAT Enoxaparin Sodium 40 mg 01/07/17 10:00 01/13/17 10:45 Lovenox - SQ 40 mg DAILY ANNIE Administration Morphine Sulfate 4 mg 01/10/17 11:32 01/12/17 22:25 Morphine Injection - IVPUSH 4 mg Q3H PRN Administration PAIN Ondansetron HCl 4 mg 01/10/17 13:27 01/11/17 11:04 Zofran Injection IVPB 4 mg Q4H PRN Administration NAUSEA AND/OR VOMITING Promethazine HCl 12.5 mg 01/06/17 18:00 01/07/17 22:43 Phenergan Injection - IVPB 12.5 mg Q6H PRN Administration NAUSEA AND/OR VOMITING Simethicone 80 mg 01/10/17 13:26 01/12/17 10:43 Mylicon - PO 80 mg Q4H PRN Administration GAS Zolpidem Tartrate 5 mg 01/06/17 17:43 01/08/17 22:41 Ambien - PO 5 mg HS PRN Administration INSOMNIA ASSESSMENT/PLAN: 31F no PMH found to have multiple findings on CT scan dated 12/28/16 admitted after an obstructing lesion found on colonoscopy in the distal ascending colon just proximal to hepatic flexure. POD #6 s/p Laparoscopic right hemicolectomy Mass of ascending colon: poorly differentiated adenoaCa s/p laparoscopic right hemicolectomy with biopsy of abdominal implant Stop IVF f/u pathology from colon-poorly differentiated feliz Ca. Lymphovascular invasion. lymph nodes positive-poor prognosis Dr. Schaffer contacted will personally speak to the patient tomorrow when he comes into the hospital. Patient requesting to speak to patient f/u pathology from biopsied abdominal implant-same pathology as above Incentive spirometry-importance of this explained to patient in detail ambulate Triple phase MRI of abdomen per GI - no liver metastasis CEA level-32.7- elevated Albumin and total protein levels low on previous labs in the system from 2012 pathology from colon biopsies-poorly differentiated adenocarcinoma. tumor is likely primary colon source further pathological assessment did not reveal any DNA mismatch repair defects given the young age of this patient and her father having prostate ca and some kind of bone marrow cancer and mother possibly having breast Ca she should be evaluated as an outpatient for genetic cancer mutations and hereditary cancer syndromes Will need pelvic MRI as outpatient will need PET scan as outpatient Ileus VS post-operative early SBO resolving tolerated CLD advance to low fiber diet per GI Hepatic hypoattenuation of left lobe: MRI-no liver masses on MRI left lung base nodule: Chest CT-small nodules bilaterally noted will need follow up CT in 6 months Leukopenia: new finding: possibly secondary to cancer protein calorie malnutrition: patient appears cachectic low albumin and total protein levels indicative of malnutrition also given her low amount of lean muscle mass Anemia: Chronic likely secondary to colon mass with intermittent GI bleeding Transfuse PRN Heme/onc consult appreciated f/u Hb electrophoresis-no significant findings f/u hematology iron studies show iron deficiency anemia likely from chronic blood loss anemia secondary to colon cancer-expect this would resolve with Iron treatment and removal of mass Ovarian Mass/enlarged uterus: possible metastasis but likely from fibroids as patient had a history of myomectomy 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 Poor prognosis per Dr. Schaffer Patient made aware of pathological findings. Dr. Schaffer to speak to patient about findings treatment options and prognosis today Discharge planning for this weekend Visit type - Emergency Visit Emergency Visit: No - New Patient This patient is new to me today: No - Critical Care Critical Care patient: No - Discharge Referral Referred to [facility] Med P.C.: No
--- NOTE | 2017-01-13 12:11 | PN ---
Progress Note (short form) - Note Progress Note: Patient seen and examined Discussed with surgery, Dr. Hernandez and with staff Pathology reviewed T4a,N1b M1 invasive adenocarcinoma Stage IV disease Had implants biopsied at surgery which were positive Last Vital Signs Temp Pulse Resp BP Pulse Ox 98.2 F 89 20 105/55 99 01/13/17 10:00 01/13/17 10:00 01/13/17 10:00 01/13/17 10:00 01/12/17 21:00 HEENT: EVAN, EOM Intact Oropharynx: No thrush, No mucositis Neck: Supple Cor: RSR, No murmurs, No gallops Lungs: Clear to P&A Abd: Soft, spring in place , distended Ext:No significant edema Skin: No rashes, Integument intact CBC, BMP 01/11/17 10:05 01/11/17 10:05 Current Medications Generic Name Dose Route Start Last Admin Trade Name Freq PRN Reason Stop Dose Admin Benzocaine/Menthol 1 each 01/11/17 13:24 01/12/17 03:04 Cepacol Lozenge - MM 1 each PRN PRN Administration SORE THROAT Enoxaparin Sodium 40 mg 01/07/17 10:00 01/13/17 10:45 Lovenox - SQ 40 mg DAILY ANNIE Administration Morphine Sulfate 4 mg 01/10/17 11:32 01/12/17 22:25 Morphine Injection - IVPUSH 4 mg Q3H PRN Administration PAIN Ondansetron HCl 4 mg 01/10/17 13:27 01/11/17 11:04 Zofran Injection IVPB 4 mg Q4H PRN Administration NAUSEA AND/OR VOMITING Promethazine HCl 12.5 mg 01/06/17 18:00 01/07/17 22:43 Phenergan Injection - IVPB 12.5 mg Q6H PRN Administration NAUSEA AND/OR VOMITING Simethicone 80 mg 01/10/17 13:26 01/12/17 10:43 Mylicon - PO 80 mg Q4H PRN Administration GAS Zolpidem Tartrate 5 mg 01/06/17 17:43 01/08/17 22:41 Ambien - PO 5 mg HS PRN Administration INSOMNIA Impression : Stage IV metastatic colon ca Discussed approach with patient Diagnostic- MRI of pelvis, PET-CT and Port cath Treatment - Discussed chemotherapy with FOLFOX Initial discussion of side effects including but not limited to alopecia, GI myelosuppression, risk of infection, bleeding , need for hospitilization, transfusions, numbness and tingling of fingers and toes discussed. More detailed discussion in future. Discussed the fact that currently chemotherapy would need be indefinite and that the likelihood of control for a period of time (perhaps years) was far better than the likelihood of cure.The fact that chemotherapy might not be successful was also discussed. Social issues discussed -- single working parent with 4 young children. Patient is . Told that would have to step up to the plate and help out with the children. Patient is spiritual and pastoral support and palliative care would be of benefit. Multiple additional questions. Greater than 45 minutes in discussion with patient. Problem List - Problems (1) Colonic mass Code(s): K63.9 - DISEASE OF INTESTINE, UNSPECIFIED (2) Anemia Code(s): D64.9 - ANEMIA, UNSPECIFIED (3) Breast nodule Code(s): N63 - UNSPECIFIED LUMP IN BREAST
[2017-01-13] MEDS ORDERED: OXYCODONE/APAP 5/325MG COMBO TABLET PO PRN (12:24)
[2017-01-13] MEDS ORDERED: ACETAMINOPHEN 325 MG TABLET (FP) PO PRN (12:31)
--- NOTE | 2017-01-13 16:20 | PN ---
Teaching Attending Note Name of Resident: Gilberto Trevino ATTENDING PHYSICIAN STATEMENT I saw and evaluated the patient. I reviewed the resident's note and discussed the case with the resident. I agree with the resident's findings and plan as documented. Patient is comfortable, able to tolerate full liquid , will advance her diet to regular diet. No further nausea or vomiting, no shortness of breath, no fever or chills. Vital Signs Temperature 98.6 F 01/13/17 14:53 Pulse Rate 88 01/13/17 14:53 Respiratory Rate 16 01/13/17 14:53 Blood Pressure 109/57 01/13/17 14:53 O2 Sat by Pulse Oximetry (%) 100 01/13/17 09:00 CBCD WBC 5.0 K/mm3 (4.0-10.0) 01/11/17 10:05 RBC 2.98 M/mm3 (3.60-5.2) L 01/11/17 10:05 Hgb 8.1 GM/dL (10.7-15.3) L 01/11/17 10:05 Hct 25.6 % (32.4-45.2) L 01/11/17 10:05 MCV 85.8 fl (80-96) 01/11/17 10:05 MCHC 31.8 g/dl (32.0-36.0) L 01/11/17 10:05 RDW 12.8 % (11.6-15.6) 01/11/17 10:05 Plt Count 264 K/MM3 (134-434) D 01/11/17 10:05 MPV 8.8 fl (7.5-11.1) 01/11/17 10:05 CMP Sodium 139 mmol/L (136-145) 01/11/17 10:05 Potassium 4.3 mmol/L (3.5-5.1) 01/11/17 10:05 Chloride 102 mmol/L (98-107) 01/11/17 10:05 Carbon Dioxide 28 mmol/L (21-32) 01/11/17 10:05 Anion Gap 9 (8-16) 01/11/17 10:05 BUN 8 mg/dL (7-18) 01/11/17 10:05 Creatinine 0.5 mg/dL (0.55-1.02) L 01/11/17 10:05 Creat Clearance w eGFR > 60 (>60) 01/10/17 07:15 Random Glucose 100 mg/dL (74-106) 01/11/17 10:05 Calcium 8.0 mg/dL (8.5-10.1) L 01/11/17 10:05 Total Bilirubin 0.7 mg/dL (0.2-1.0) 01/10/17 07:15 AST 10 U/L (15-37) L 01/10/17 07:15 ALT 11 U/L (12-78) L D 01/10/17 07:15 Alkaline Phosphatase 39 U/L (45-117) L 01/10/17 07:15 Total Protein 5.3 g/dl (6.4-8.2) L 01/10/17 07:15 Albumin 2.7 g/dl (3.4-5.0) L 01/10/17 07:15 Current Medications Generic Name Dose Route Start Last Admin Trade Name Freq PRN Reason Stop Dose Admin Acetaminophen 325 mg 01/13/17 12:31 Tylenol - PO 01/16/17 12:30 Q4H PRN PAIN Benzocaine/Menthol 1 each 01/11/17 13:24 01/12/17 03:04 Cepacol Lozenge - MM 1 each PRN PRN Administration SORE THROAT Enoxaparin Sodium 40 mg 01/07/17 10:00 01/13/17 10:45 Lovenox - SQ 40 mg DAILY ANNIE Administration Morphine Sulfate 4 mg 01/10/17 11:32 01/12/17 22:25 Morphine Injection - IVPUSH 4 mg Q3H PRN Administration PAIN Ondansetron HCl 4 mg 01/10/17 13:27 01/11/17 11:04 Zofran Injection IVPB 4 mg Q4H PRN Administration NAUSEA AND/OR VOMITING Oxycodone HCl 5 mg 01/13/17 12:31 Roxicodone - PO Q4H PRN PAIN Promethazine HCl 12.5 mg 01/06/17 18:00 01/07/17 22:43 Phenergan Injection - IVPB 12.5 mg Q6H PRN Administration NAUSEA AND/OR VOMITING Simethicone 80 mg 01/10/17 13:26 01/12/17 10:43 Mylicon - PO 80 mg Q4H PRN Administration GAS Zolpidem Tartrate 5 mg 01/06/17 17:43 01/08/17 22:41 Ambien - PO 5 mg HS PRN Administration INSOMNIA Home Medications Medication Instructions Recorded Multivitamin with Minerals [Icaps 1 each PO DAILY 01/02/17 Plus] [place]-3 Fatty Acids [[place]-3] 1,000 mg PO DAILY 01/02/17 Abdomen:less Distended, positive for BS CEA level-32.7- elevated Triple phase MRI of abdomen per GI - no liver metastasis ASSESSMENT AND PLAN: Patient is a 31 y/o lady with no PMHx who presented for evaluation of Right colonic mass seen on CT scan # 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 will advance her diet to regular. #Mass of ascending colon: poorly differentiated adenoaCa s/p laparoscopic right hemicolectomy with biopsy of abdominal implant pathology report :poorly differentiated feliz Ca. Lymphovascular invasion. lymph nodes positive-poor prognosis #Acute ileus s/p NG tube removal ,tolerating full liquid will advance diet to regular diet now # Acute blood loss with hx of chronic iron def anemia: transfuse when Hb < 7, monitor DVT Px: Lovenox
[2017-01-13] MEDS: oxyCODONE HCL 5 MG TABLET PO PRN ×2 (19:34→19:35)
[2017-01-13] MEDS: SIMETHICONE 80 MG TAB.CHEW (FP) PO PRN (22:00)
[2017-01-14] MEDS: morphine CARPU-JECT 4 MG/1 ML DISP.SYRIN IVPUSH PRN ×4 (00:30→20:22)
[2017-01-14] MEDS: oxyCODONE HCL 5 MG TABLET PO PRN (07:21)
--- NOTE | 2017-01-14 09:35 | PN ---
Physical Exam: SUBJECTIVE: Patient seen and examined Patient is tolerating regular diet. still having some abdominal discomfort, no nausea or vomiting. OBJECTIVE: Vital Signs Temperature 99.1 F 01/14/17 07:36 Pulse Rate 86 01/14/17 07:36 Respiratory Rate 20 01/14/17 07:36 Blood Pressure 110/52 01/14/17 07:36 O2 Sat by Pulse Oximetry (%) 100 01/13/17 21:00 GENERAL: The patient is awake, alert, and fully oriented, in no acute distress. HEAD: Normal with no signs of trauma. EYES: PERRL, extraocular movements intact, sclera anicteric, conjunctiva clear. No ptosis. ENT: Ears normal, nares patent, oropharynx clear without exudates, moist mucous membranes. NECK: Trachea midline, full range of motion, supple. LUNGS: Breath sounds equal, clear to auscultation bilaterally, no wheezes, no crackles, no accessory muscle use. HEART: Regular rate and rhythm, S1, S2 without murmur, rub or gallop. ABDOMEN: Soft, positive for tenderness ,mildly distended due to surgery, normoactive bowel sounds, no guarding, no rebound. EXTREMITIES: 2+ pulses, warm, well-perfused, no edema. NEUROLOGICAL: Cranial nerves II through XII grossly intact. Normal speech, gait not observed. PSYCH: Normal mood, normal affect. SKIN: Warm, dry, normal turgor, no rashes or lesions noted CBCD WBC 5.0 K/mm3 (4.0-10.0) 01/11/17 10:05 RBC 2.98 M/mm3 (3.60-5.2) L 01/11/17 10:05 Hgb 8.1 GM/dL (10.7-15.3) L 01/11/17 10:05 Hct 25.6 % (32.4-45.2) L 01/11/17 10:05 MCV 85.8 fl (80-96) 01/11/17 10:05 MCHC 31.8 g/dl (32.0-36.0) L 01/11/17 10:05 RDW 12.8 % (11.6-15.6) 01/11/17 10:05 Plt Count 264 K/MM3 (134-434) D 01/11/17 10:05 MPV 8.8 fl (7.5-11.1) 01/11/17 10:05 CMP Sodium 139 mmol/L (136-145) 01/11/17 10:05 Potassium 4.3 mmol/L (3.5-5.1) 01/11/17 10:05 Chloride 102 mmol/L (98-107) 01/11/17 10:05 Carbon Dioxide 28 mmol/L (21-32) 01/11/17 10:05 Anion Gap 9 (8-16) 01/11/17 10:05 BUN 8 mg/dL (7-18) 01/11/17 10:05 Creatinine 0.5 mg/dL (0.55-1.02) L 01/11/17 10:05 Creat Clearance w eGFR > 60 (>60) 01/10/17 07:15 Random Glucose 100 mg/dL (74-106) 01/11/17 10:05 Calcium 8.0 mg/dL (8.5-10.1) L 01/11/17 10:05 Total Bilirubin 0.7 mg/dL (0.2-1.0) 01/10/17 07:15 AST 10 U/L (15-37) L 01/10/17 07:15 ALT 11 U/L (12-78) L D 01/10/17 07:15 Alkaline Phosphatase 39 U/L (45-117) L 01/10/17 07:15 Total Protein 5.3 g/dl (6.4-8.2) L 01/10/17 07:15 Albumin 2.7 g/dl (3.4-5.0) L 01/10/17 07:15 Active Medications Generic Name Dose Route Start Last Admin Trade Name Freq PRN Reason Stop Dose Admin Acetaminophen 325 mg 01/13/17 12:31 01/13/17 19:35 Tylenol - PO 01/16/17 12:30 325 mg Q4H PRN Administration PAIN Benzocaine/Menthol 1 each 01/11/17 13:24 01/12/17 03:04 Cepacol Lozenge - MM 1 each PRN PRN Administration SORE THROAT Enoxaparin Sodium 40 mg 01/07/17 10:00 01/13/17 10:45 Lovenox - SQ 40 mg DAILY ANNIE Administration Morphine Sulfate 4 mg 01/10/17 11:32 01/14/17 08:38 Morphine Injection - IVPUSH 4 mg Q3H PRN Administration PAIN Ondansetron HCl 4 mg 01/10/17 13:27 01/11/17 11:04 Zofran Injection IVPB 4 mg Q4H PRN Administration NAUSEA AND/OR VOMITING Oxycodone HCl 5 mg 01/13/17 12:31 01/13/17 19:35 Roxicodone - PO 5 mg Q4H PRN Administration PAIN Promethazine HCl 12.5 mg 01/06/17 18:00 01/07/17 22:43 Phenergan Injection - IVPB 12.5 mg Q6H PRN Administration NAUSEA AND/OR VOMITING Simethicone 80 mg 01/10/17 13:26 01/13/17 22:00 Mylicon - PO 80 mg Q4H PRN Administration GAS Zolpidem Tartrate 5 mg 01/06/17 17:43 01/08/17 22:41 Ambien - PO 5 mg HS PRN Administration INSOMNIA Home Medications Medication Instructions Recorded Multivitamin with Minerals [Icaps 1 each PO DAILY 01/02/17 Plus] [place]-3 Fatty Acids [[place]-3] 1,000 mg PO DAILY 01/02/17 CEA level-32.7- elevated Triple phase MRI of abdomen per GI - no liver metastasis ASSESSMENT AND PLAN: Patient is a 31 y/o lady with no PMHx who presented for evaluation of Right colonic mass seen on CT scan # 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 Lymphovascular invasion. lymph nodes positive-poor prognosis #Acute ileus s/p NG tube removal. Tolerating regular diet. # Acute blood loss with hx of chronic iron def anemia: transfuse when Hb < 7, monitor DVT Px: Lovenox will discharge the patient in am. Visit type - Emergency Visit Emergency Visit: Yes ED Registration Date: 01/03/17 Care time: The patient presented to the Emergency Department on the above date and was hospitalized for further evaluation of their emergent condition. - New Patient This patient is new to me today: No - Critical Care Critical Care patient: No
[2017-01-14] MEDS: ENOXAPARIN NA (PORCINE) 40 MG/0.4 ML DISP.SYRIN SQ SCH (10:43)
[2017-01-14] MEDS: SIMETHICONE 80 MG TAB.CHEW (FP) PO PRN (16:56)
[2017-01-14 17:33] VITALS: TEMP 98.3
--- NOTE | 2017-01-14 17:35 | PN ---
Progress Note (short form) - Note Progress Note: Patient seen and examined Rediscussed issues about chemotherapy. Still unsure if she will go in the direction of chemotherapy vs. holistic approach Answered questions Last Vital Signs Temp Pulse Resp BP Pulse Ox 98.6 F 85 16 107/61 100 01/14/17 14:21 01/14/17 14:21 01/14/17 14:21 01/14/17 14:21 01/13/17 21:00 HEENT: EVAN, EOM Intact Oropharynx: No thrush, No mucositis Neck: Supple Cor: RSR, No murmurs, No gallops Lungs: Clear to P&A Abd: distended Ext:No significant edema Skin: No rashes, Integument intact CBC, BMP 01/11/17 10:05 01/11/17 10:05 Current Medications Generic Name Dose Route Start Last Admin Trade Name Freq PRN Reason Stop Dose Admin Acetaminophen 325 mg 01/13/17 12:31 01/13/17 19:35 Tylenol - PO 01/16/17 12:30 325 mg Q4H PRN Administration PAIN Benzocaine/Menthol 1 each 01/11/17 13:24 01/12/17 03:04 Cepacol Lozenge - MM 1 each PRN PRN Administration SORE THROAT Enoxaparin Sodium 40 mg 01/07/17 10:00 01/14/17 10:43 Lovenox - SQ Not Given DAILY ANNIE Morphine Sulfate 4 mg 01/10/17 11:32 01/14/17 12:45 Morphine Injection - IVPUSH 4 mg Q3H PRN Administration PAIN Ondansetron HCl 4 mg 01/10/17 13:27 01/11/17 11:04 Zofran Injection IVPB 4 mg Q4H PRN Administration NAUSEA AND/OR VOMITING Oxycodone HCl 5 mg 01/13/17 12:31 01/13/17 19:35 Roxicodone - PO 5 mg Q4H PRN Administration PAIN Promethazine HCl 12.5 mg 01/06/17 18:00 01/07/17 22:43 Phenergan Injection - IVPB 12.5 mg Q6H PRN Administration NAUSEA AND/OR VOMITING Simethicone 80 mg 01/10/17 13:26 01/14/17 16:56 Mylicon - PO 80 mg Q4H PRN Administration GAS Zolpidem Tartrate 5 mg 01/06/17 17:43 01/08/17 22:41 Ambien - PO 5 mg HS PRN Administration INSOMNIA Impression: Metastatic colon ca Patient hopefully will follow up and consider outpatient chemotherapy. Will need PET, MRI pelvis , port prior to any treatment. Problem List - Problems (1) Colonic mass Code(s): K63.9 - DISEASE OF INTESTINE, UNSPECIFIED (2) Anemia Code(s): D64.9 - ANEMIA, UNSPECIFIED (3) Breast nodule Code(s): N63 - UNSPECIFIED LUMP IN BREAST
[2017-01-14] MEDS ORDERED: PT OWN MED DRAWER 7, Y5N ONE (18:43)
[2017-01-15] MEDS: ENOXAPARIN NA (PORCINE) 40 MG/0.4 ML DISP.SYRIN SQ SCH (09:59)
[2017-01-15] MEDS: oxyCODONE HCL 5 MG TABLET PO PRN (10:46)
[2017-01-15] MEDS: SIMETHICONE 80 MG TAB.CHEW (FP) PO PRN (10:48)
--- NOTE | 2017-01-15 11:41 | DS ---
Physical Exam: SUBJECTIVE: Patient seen and examined at bedside wants to go home OBJECTIVE: Vital Signs Period Temp Pulse Resp BP Sys/Quintana Pulse Ox Last 24 Hr 98.3 F-98.6 F 85-87 16-18 107-124/60-61 100-100 PHYSICAL EXAM GENERAL: Awake, alert, and fully oriented, in no acute distress. HEAD: Normal with no signs of trauma. EYES: Pupils equal, round and reactive to light, extraocular movements intact, sclera anicteric, conjunctiva clear EARS, NOSE, THROAT: Moist mucous membranes. NECK: Normal range of motion, supple LUNGS: Breath sounds equal, clear to auscultation bilaterally HEART: Regular rate and rhythm, normal S1 and S2 ABDOMEN: Soft, appropriately tender, distended- much improved, +bowel sounds Incision C/D/I MUSCULOSKELETAL: Decreased muscle mass UPPER EXTREMITIES: warm, well-perfused. No peripheral edema. LOWER EXTREMITIES: warm, well-perfused. No calf tenderness. No peripheral edema. NEUROLOGICAL: Cranial nerves II-XII intact. Normal speech. PSYCHATRIC: in good spirits LABS HOSPITAL COURSE: Date of Admission:01/03/17 Date of Discharge: 01/15/17 31F with no PMHx had chronic abdominal pain. Had colonoscopy done and was admitted after as she had a near total obstructing mass in the right colon. She had a CT of the chest which showed small non specific nodules which will need follow up as an outpatient. She also had an MRI of the abdomen to check for liver metastatsis which was negative. she went to the OR for laparoscopic right hemicolectomy. pathology showed Adeno Ca with abdominal wall implant superior to the bladder which was biopsied and was positive for cancer. She also had 6 nodes positive. These findings made her a stage 4. Seen [address] Schaffer and explained to the patient the plan on how to precede and patient will follow up with him for Chemotherapy. Hospital course complicated by post op ileus and abdominal distention which has resolved. She is now tolerating low fiber diet. patient wants to go home and is stable for discharge. She will need follow up with GI [facility] for endometrial biopsy. oncology for chemotherapy PET scan and Pelvic MRI and with Surgery for follow up and spring removal. Explained to patient in detail needs for genetic testing for her children sake and her children will need colonoscopy by age 23. Minutes to complete discharge: 60 Discharge Summary Reason For Visit: ABDOMINAL PAIN Current Active Problems Anemia (Acute) Ascending colon malignant neoplasm (Acute) Breast nodule (Acute) Colonic mass (Acute) Ileus following gastrointestinal surgery (Acute) Condition: Improved - Instructions Diet, Activity, Other Instructions: - please follow closely with oncology . as lung nodules need to be monitored routinely-you will need a follow up CT scan of the chest in a 3-6 months - follow with [facility] as you need a biopsy of the lining of your uterus and to follow up on ovarian cyst . -follow up with your primary care doctor if you do not want to see your primary care doctor you can see me in the office at [address] [facility] call for appointment [phone]. call the office to schedule an appointment i see patients on from -. if the office does not accept your insurance then you should follow up with your primary care doctor -you need to follow up with diesel crane operator Dr. Rosales follow up with oncology Dr. Schaffer follow up with surgery to remove your spring Dr. Hernandez Follow up with substation operator helper generation dr jacome you will need a PET scan Dr Schaffer with set you up you will need a pelvic MRI as well he will set it up as an outpatient for you consider seeing a deck officer your children will need a colonoscopy st or before 23 years old eat a low fiber diet for now until you see Dr. Hon Jim tobias it was a pleasure taking care of you Dr. Gilberto Trevino Referrals: Pasquale Rosales DO [Staff Physician] - 2 Weeks Sylvester Hernandez MD [Staff Physician] - 1 Week Myah Jacome MD [Staff Physician] - 1 Week Valentino Schaffer MD [Staff Physician] - 1 Week Disposition: HOME - Home Medications Comprehensive Discharge Medication List: Ambulatory Orders Multivitamin with Minerals [Icaps Plus] 1 each PO DAILY 01/02/17 [place]-3 Fatty Acids [[place]-3] 1,000 mg PO DAILY 01/02/17 This patient is new to me today: No Emergency Visit: No Critical Care patient: No - Discharge Referral Referred to [facility] Med P.C.: No
--- NOTE | 2017-01-15 11:54 | PN ---
Teaching Attending Note Name of Resident: Gilberto Trevino ATTENDING PHYSICIAN STATEMENT I saw and evaluated the patient. I reviewed the resident's note and discussed the case with the resident. I agree with the resident's findings and plan as documented. Patient is doing better, with no acute distress. Patient tolerated diet well. Vital Signs Temperature 98.3 F 01/14/17 17:33 Pulse Rate 87 01/14/17 17:33 Respiratory Rate 18 01/14/17 18:02 Blood Pressure 124/60 01/14/17 17:33 O2 Sat by Pulse Oximetry (%) 100 01/14/17 21:00 CBCD WBC 5.0 K/mm3 (4.0-10.0) 01/11/17 10:05 RBC 2.98 M/mm3 (3.60-5.2) L 01/11/17 10:05 Hgb 8.1 GM/dL (10.7-15.3) L 01/11/17 10:05 Hct 25.6 % (32.4-45.2) L 01/11/17 10:05 MCV 85.8 fl (80-96) 01/11/17 10:05 MCHC 31.8 g/dl (32.0-36.0) L 01/11/17 10:05 RDW 12.8 % (11.6-15.6) 01/11/17 10:05 Plt Count 264 K/MM3 (134-434) D 01/11/17 10:05 MPV 8.8 fl (7.5-11.1) 01/11/17 10:05 CMP Sodium 139 mmol/L (136-145) 01/11/17 10:05 Potassium 4.3 mmol/L (3.5-5.1) 01/11/17 10:05 Chloride 102 mmol/L (98-107) 01/11/17 10:05 Carbon Dioxide 28 mmol/L (21-32) 01/11/17 10:05 Anion Gap 9 (8-16) 01/11/17 10:05 BUN 8 mg/dL (7-18) 01/11/17 10:05 Creatinine 0.5 mg/dL (0.55-1.02) L 01/11/17 10:05 Creat Clearance w eGFR > 60 (>60) 01/10/17 07:15 Random Glucose 100 mg/dL (74-106) 01/11/17 10:05 Calcium 8.0 mg/dL (8.5-10.1) L 01/11/17 10:05 Total Bilirubin 0.7 mg/dL (0.2-1.0) 01/10/17 07:15 AST 10 U/L (15-37) L 01/10/17 07:15 ALT 11 U/L (12-78) L D 01/10/17 07:15 Alkaline Phosphatase 39 U/L (45-117) L 01/10/17 07:15 Total Protein 5.3 g/dl (6.4-8.2) L 01/10/17 07:15 Albumin 2.7 g/dl (3.4-5.0) L 01/10/17 07:15 Current Medications Generic Name Dose Route Start Last Admin Trade Name Freq PRN Reason Stop Dose Admin Acetaminophen 325 mg 01/13/17 12:31 01/13/17 19:35 Tylenol - PO 01/16/17 12:30 325 mg Q4H PRN Administration PAIN Benzocaine/Menthol 1 each 01/11/17 13:24 01/12/17 03:04 Cepacol Lozenge - MM 1 each PRN PRN Administration SORE THROAT Enoxaparin Sodium 40 mg 01/07/17 10:00 01/15/17 09:59 Lovenox - SQ Not Given DAILY ANNIE Morphine Sulfate 4 mg 01/10/17 11:32 01/14/17 20:22 Morphine Injection - IVPUSH 4 mg Q3H PRN Administration PAIN Ondansetron HCl 4 mg 01/10/17 13:27 01/11/17 11:04 Zofran Injection IVPB 4 mg Q4H PRN Administration NAUSEA AND/OR VOMITING Oxycodone HCl 5 mg 01/13/17 12:31 01/15/17 10:46 Roxicodone - PO 5 mg Q4H PRN Administration PAIN Promethazine HCl 12.5 mg 01/06/17 18:00 01/07/17 22:43 Phenergan Injection - IVPB 12.5 mg Q6H PRN Administration NAUSEA AND/OR VOMITING Simethicone 80 mg 01/10/17 13:26 01/15/17 10:48 Mylicon - PO 80 mg Q4H PRN Administration GAS Zolpidem Tartrate 5 mg 01/06/17 17:43 01/08/17 22:41 Ambien - PO 5 mg HS PRN Administration INSOMNIA Home Medications Medication Instructions Recorded Multivitamin with Minerals [Icaps 1 each PO DAILY 01/02/17 Plus] [place]-3 Fatty Acids [[place]-3] 1,000 mg PO DAILY 01/02/17 Oxycodone HCl [Roxicodone -] 5 mg PO Q6H PRN #12 tablet MDD 4 01/15/17 Abd: soft NT. positive for BS. 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 PAtient tolerated diet well. will follow with and will follow with for further treatment and work up. given Rx for Oxycodon and added colcac tid for possible constipation. #Mass of ascending colon: poorly differentiated adenoaCa s/p laparoscopic right hemicolectomy with biopsy of abdominal implant pathology report :poorly differentiated feliz Ca. Lymphovascular invasion. lymph nodes positive-poor prognosis #Acute ileus s/p NG tube removal ,tolerating full liquid will advance diet # Acute blood loss with hx of chronic iron def anemia: transfuse when Hb < 7, monitor
[2017-01-15 13:46] VITALS: BP 122/78; PULSE 78
== END 2017-01-15 14:44 | disposition home or self-care (01) | DRG 330 ==
LOC: JOR 11:31 → JASU-ENDO 11:31 → JSAMEDAYSX 14:13 → J8W 15:09 → JERBED 17:05 → J8W 17:10
PROVIDERS: ADMIT Internal Medicine; ATTEND Internal Medicine
PROC: 0DBE8ZX Excision of Large Intestine, Via Natural or Artificial Opening Endoscopic, Diagnostic (ICD-10-PCS; 2017-01-03)
PROC: 0WBF4ZZ Excision of Abdominal Wall, Percutaneous Endoscopic Approach (ICD-10-PCS; 2017-01-06)
PROC: 0WQF4ZZ Repair Abdominal Wall, Percutaneous Endoscopic Approach (ICD-10-PCS; 2017-01-06)
PROC: 0WBF4ZX Excision of Abdominal Wall, Percutaneous Endoscopic Approach, Diagnostic (ICD-10-PCS; 2017-01-06)
PROC: 0DTF4ZZ Resection of Right Large Intestine, Percutaneous Endoscopic Approach (ICD-10-PCS; principal; 2017-01-06 12:30)
DX: C18.2 Malignant neoplasm of ascending colon (principal); E46 Unspecified protein-calorie malnutrition; R64 Cachexia; K91.3 Postprocedural intestinal obstruction; D62 Acute posthemorrhagic anemia; D63.8 Anemia in other chronic diseases classified elsewhere; D72.818 Other decreased white blood cell count; N83.291 Other ovarian cyst, right side; R91.1 Solitary pulmonary nodule; K42.9 Umbilical hernia without obstruction or gangrene; N20.0 Calculus of kidney; N85.2 Hypertrophy of uterus; Z68.26 Body mass index [BMI] 26.0-26.9, adult; G43.809 Other migraine, not intractable, without status migrainosus; D25.9 Leiomyoma of uterus, unspecified; E05.80 Other thyrotoxicosis without thyrotoxic crisis or storm; N63 Unspecified lump in breast; Q64.4 Malformation of urachus; Y83.8 Other surgical procedures as the cause of abnormal reaction of the patient, or of later complication, without mention of misadventure at the time of the procedure; K64.8 Other hemorrhoids; E87.6 Hypokalemia; E83.42 Hypomagnesemia; E83.39 Other disorders of phosphorus metabolism
CPT/HCPCS: 36415; 71010-TC; 71260-TC; 74000-TC; 74020-TC; 74183-TC; 76700-TC; 76830-TC; 76856-TC; 80048; 80053; 81500; 82378; 82525; 82607; 82728; 82746; 83021; 83540; 83550; 83615; 83735; 84100; 84439; 84443; 84550; 84703; 85025; 85027; 85044; 85384; 85610; 85651; 85660; 85730; 86038; 86140; 86431; 86704; 86706; 86708; 86850; 86880; 86900; 86901; 87040; 87086; 87340; 87389; 88305-TC; 88309-TC; 88341-TC; 88342-TC; 93005; 93010; 94760; A9576

== ENCOUNTER 2017-06-26 17:03 | Emergency (ER) | payer BC, OTHER ==
[2017-06-26 17:14] VITALS: BP 109/47; PULSE 83; TEMP 98.6; BMI 22.1
[2017-06-26] MEDS ORDERED: ONDANSETRON 4 MG/2 ML VIAL IVPB ONE (18:50)
[2017-06-26] MEDS ORDERED: SODIUM CHLORIDE 1,000 ML IV STA (18:59)
[2017-06-26] MEDS ORDERED: ONDANSETRON 4 MG/2 ML VIAL ONE (19:06)
[2017-06-26 19:18] LABS: BASOPHIL 0.4 % (0-2.0); MCH 26.6 pg (25.7-33.7); MCHC 32.5 g/dl (32.0-36.0); MEAN CELL VOLUME 81.7 fl (80-96); MEAN PLT VOLUME 8.8 fl (7.5-11.1); NEUTROPHILS 82.2 % (42.8-82.8); PLATELET COUNT 318 K/MM3 (134-434); RDW 18.3 % (11.6-15.6); WHITE BLOOD COUNT 5.2 K/mm3 (4.0-10.0)
[2017-06-26 19:27] LABS: URINE APPEARANCE SLCLOUDY; URINE BILIRUBIN NEGATIVE (NEGATIVE); URINE BLOOD NEGATIVE (NEGATIVE); URINE COLOR AMBER; URINE GLUCOSE (UA) 1+ (NEGATIVE); URINE KETONE 2+ (NEGATIVE); URINE LEUK ESTERASE NEGATIVE (NEGATIVE); URINE NITRITE NEGATIVE (NEGATIVE); URINE UROBILINOGEN NEGATIVE mg/dL (0.2-1.0)
[2017-06-26 19:37] LABS: URINE PROTEIN 1+ (NEGATIVE)
[2017-06-26] MEDS ORDERED: morphine CARPU-JECT 2 MG/1 ML DISP.SYRIN IVPUSH ONE (19:49)
--- NOTE | 2017-06-26 19:49 | PDOC ---
History of Present Illness - History of Present Illness Initial Comments: 06/26/17 20:38 The patient is a 32 year old female, with a significant past medical history of stage IV colon CA s/p right hemicolectomy (December 2016), who presents to the emergency department with complaints of abdominal pain, abdominal distention, and vomiting for 3 days. The patient reports having an abdominal CT on Monday, , but states she has not received the results. She states she was pain free on Monday, and reports waking up on Monday with severe, constant abdominal pain to her upper quadrants and periumbilical regions. The patient reports 3 days of vomiting, nonbloody, exacerbated with PO intake. She states she has "not been able to keep anything down." She states she has lost about 20 pounds in the past 30 days, She reports her pain keeps her up at night. She denies taking any medications for pain because she is "holistically treating the cancer". She denies chest pain, shortness of breath, headache and dizziness. She denies fever, chills, nausea, vomit, diarrhea and constipation. She denies dysuria, frequency, urgency and hematuria. Allergies: NKDA Past surgical history: right hemicolectomy, x3, myomectomy Social history: Pt denies tobacco use PCP - Dr. Joanna Severino ([phone]) Holistic oncologist - Dr. Hurley ([phone]) <Selene Dunaway - Last Filed: 06/26/17 20:38> <Britt Longo - Last Filed: 06/27/17 17:17> - General Chief Complaint: Nausea/Vomiting Stated Complaint: NAUSEA/VOMITING Time Seen by Provider: 06/26/17 18:16 Past History <Selene Dunaway - Last Filed: 06/26/17 20:38> - Past Medical History Anemia: Yes Asthma: No Cancer: Yes (colon) Cardiac Disorders: No CVA: No COPD: No CHF: No Dementia: No Diabetes: No GI Disorders: No Disorders: No HTN: No Hypercholesterolemia: No Liver Disease: No Seizures: No Thyroid Disease: No - Immunization History Immunization Up to Date: Yes - Suicide/Smoking/Psychosocial Hx Smoking Status: No Smoking History: Never smoked Have you smoked in the past 12 months: No Number of Cigarettes Smoked Daily: 0 Hx Alcohol Use: No Drug/Substance Use Hx: No Substance Use Type: None Hx Substance Use Treatment: No <Britt Longo - Last Filed: 06/27/17 17:17> - Past Medical History Allergies/Adverse Reactions: Allergies Allergy/AdvReac Type Severity Reaction Status Date / Time No Known Allergies Allergy Verified 06/26/17 17:11 Home Medications: Ambulatory Orders Docusate Sodium [Colace -] 100 mg PO BID PRN #60 capsule 06/26/17 Ondansetron [Zofran Odt -] 4 mg SL TID PRN #21 od.tablet 06/26/17 Oxycodone HCl/Acetaminophen [Percocet 5-325 mg Tablet] 1 tab PO Q6H PRN #20 tablet MDD 4 06/26/17 Review of Systems - Review of Systems Able to Perform ROS?: Yes Comments:: 06/26/17 20:51 CONSTITUTIONAL: Absent: fever, chills, diaphoresis, generalized weakness, malaise, loss of appetite HEENT: Absent: rhinorrhea, nasal congestion, throat pain, throat swelling, difficulty swallowing, mouth swelling, ear pain, eye pain, visual Changes CARDIOVASCULAR: Absent: chest pain, syncope, palpitations, irregular heart rate, lightheadedness , peripheral edema RESPIRATORY: Absent: cough, shortness of breath, dyspnea with exertion, orthopnea, wheezing, stridor, hemoptysis GASTROINTESTINAL: (+) abdominal pain, abdominal distension, nausea, vomiting, Absent: diarrhea, constipation, melena, hematochezia GENITOURINARY: Absent: dysuria, frequency, urgency, hesitancy, hematuria, flank pain, genital pain MUSCULOSKELETAL: Absent: myalgia, arthralgia, joint swelling SKIN: Absent: rash, itching, pallor HEMATOLOGIC/IMMUNOLOGIC: Absent: easy bleeding, easy bruising, lymphadenopathy, frequent infections ENDOCRINE: (+) weight loss, Absent: unexplained weight gain, heat intolerance, cold intolerance NEUROLOGIC: Absent: headache, focal weakness or paresthesias, dizziness, unsteady gait, seizure, mental status changes, bladder or bowel incontinence PSYCHIATRIC: Absent: anxiety, depression, suicidal or homicidal ideation, hallucinations. <Selene Dunaway - Last Filed: 06/26/17 20:38> *Physical Exam - Vital Signs Last Vital Signs Temp Pulse Resp BP Pulse Ox 98.6 F 83 20 109/47 100 06/26/17 17:11 06/26/17 17:11 06/26/17 17:11 06/26/17 17:11 06/26/17 17:11 - Physical Exam Comments: 06/26/17 20:51 GENERAL: Well developed, cachectic, Awake and alert. No acute distress. HEENT: Normocephalic, atraumatic. PERRLA, EOMI. No conjunctival pallor. Sclera are non- icteric. Moist mucous membranes. Oropharynx is clear. NECK: Supple. Full ROM. No JVD. Carotid pulses 2+ and symmetric, without bruits. No thyromegaly. No lymphadenopathy. CARDIOVASCULAR: Regular rate and rhythm. No murmurs, rubs, or gallops. Distal pulses are 2+ and symmetric. PULMONARY: No evidence of respiratory distress. Lungs clear to auscultation bilaterally. No wheezing, rales or rhonchi. ABDOMINAL: (+) distended. diffuse abdominal tenderness. ascites. Soft. No rebound or guarding. No organomegaly. Normoactive bowel sounds. MUSCULOSKELETAL Normal range of motion at all joints. No bony deformities or tenderness. No CVA tenderness. EXTREMITIES: No cyanosis. No clubbing. No edema. No calf tenderness. SKIN: Warm and dry. Normal capillary refill. No rashes. No jaundice. NEUROLOGICAL: Alert, awake, appropriate. Cranial nerves 2-12 intact. Normoreflexic in the upper and lower extremities. Normal speech. Toes are down-going bilaterally. Gait is normal without ataxia. PSYCHIATRIC: Cooperative. Good eye contact. Appropriate mood and affect. <Selene Dunaway - Last Filed: 06/26/17 20:38> - Vital Signs Last Vital Signs Temp Pulse Resp BP Pulse Ox 98.6 F 83 20 109/47 100 06/26/17 17:11 06/26/17 17:11 06/26/17 17:11 06/26/17 17:11 06/26/17 17:11 <Britt Longo - Last Filed: 06/27/17 17:17> ED Treatment Course - LABORATORY CBC & Chemistry Diagram: 06/26/17 18:58 06/26/17 18:58 - ADDITIONAL ORDERS Additional order review: Laboratory Results 06/26/17 06/26/17 18:58 18:58 Sodium 134 L Potassium 4.0 Chloride 99 Carbon Dioxide 28 Anion Gap 7 L BUN 14 D Creatinine 0.6 Creat Clearance w eGFR > 60 Random Glucose 81 Calcium 9.3 Total Bilirubin 0.6 AST 11 L ALT 12 Alkaline Phosphatase 71 D Total Protein 7.3 D Albumin 3.6 D Lipase 83 Urine Color Susanna Urine Appearance Slcloudy Urine pH 5.0 Urine Protein 1+ H Urine Glucose (UA) 1+ H Urine Ketones 2+ H Urine Blood Negative Urine Nitrite Negative Urine Bilirubin Negative Urine Urobilinogen Negative Urine RBC 6 Urine WBC 5 Ur Epithelial Cells Rare Urine Mucus Few 06/26/17 18:58 RBC 3.94 D MCV 81.7 MCHC 32.5 RDW 18.3 H D MPV 8.8 Neutrophils % 82.2 Lymphocytes % 8.9 Monocytes % 7.5 Eosinophils % 1.0 Basophils % 0.4 D - Medications Given in the ED: ED Medications Discontinued Medications Generic Name Dose Route Start Last Admin Trade Name Freq PRN Reason Stop Dose Admin Sodium Chloride 1,000 mls @ 1,000 mls/hr 06/26/17 18:59 06/26/17 19:10 Normal Saline - IV 06/26/17 19:58 1,000 mls/hr ASDIR STA Administration Ondansetron HCl 4 mg 06/26/17 18:50 06/26/17 19:10 Zofran Injection IVPB 06/26/17 18:51 4 mg ONCE ONE Administration <Selene Dunaway - Last Filed: 06/26/17 20:38> - LABORATORY CBC & Chemistry Diagram: 06/26/17 18:58 06/26/17 18:58 - ADDITIONAL ORDERS Additional order review: Laboratory Results 06/26/17 18:58 Urine Color Susanna Urine Appearance Slcloudy Urine pH 5.0 Urine Protein 1+ H Urine Glucose (UA) 1+ H Urine Ketones 2+ H Urine Blood Negative Urine Nitrite Negative Urine Bilirubin Negative Urine Urobilinogen Negative 06/26/17 18:58 RBC 3.94 D MCV 81.7 MCHC 32.5 RDW 18.3 H D MPV 8.8 Neutrophils % 82.2 Lymphocytes % 8.9 Monocytes % 7.5 Eosinophils % 1.0 Basophils % 0.4 D - Medications Given in the ED: ED Medications Discontinued Medications Generic Name Dose Route Start Last Admin Trade Name Madhavi PRSaad Reason Stop Dose Admin Ondansetron HCl 4 mg 06/26/17 18:50 06/26/17 19:10 Zofran Injection IVPB 06/26/17 18:51 4 mg ONCE ONE Administration <Britt Longo - Last Filed: 06/27/17 17:17> Medical Decision Making - Medical Decision Making 06/26/17 20:48 Dr. Hurley was paged via phone answering service requesting a call back for doctor to doctor consult at 19:05 Dr. Hurley returned the call and the patient's case was discussed at 19:30. Dr. Hurley provided me with his cell phone number ([phone]) and states he will review the CT images from her recent CT scan and call us back with updates. Dr. Hurley called the ED and the patient's case discussed at 20:45. Dr. Hurley informed me that the patient refused chemotherapy in December at [facility]. He states the patient saw him once again in May when he informed her she was anemic. He reports insisting the patient start chemotherapy, but the patient refused. Dr. Hurley reports pleading with the patient to have a CT scan and she finally agreed this past Monday. Dr. Hurley states her CEA went from 30 to 350 and the patient wanted to know why that was. He states he explained to the patient she needs chemotherapy. <Selene Dunaway - Last Filed: 06/26/17 20:38> - Medical Decision Making 06/27/17 17:09 pt diagnosed w stage 4 colon cancer in December and had hemicolectomy but unfortunately there were pelvic implants and lymph node spread and she refused chemotherapy .She has been seeing a holistic physician but p/w increasing abd pain today -she had a ct scan at [facility] on Monday and her oncologist called me with the results. It showed extensive tumor load and small ascites -Dr Markell Hurley has been trying to get this young person to have chemo but so far she's refused -I explained to the pt the ct scan results -she was given meds pain and I prescibed percocet to her pharmacy --labs reviewed and essentially wnl plan- pt to follow up with oncologist <Britt Longo - Last Filed: 06/27/17 17:17> *DC/Admit/Observation/Transfer - Attestations Scribe Attestion: 06/26/17 21:00 Documentation prepared by Selene Dunaway, acting as hospital medical biller for Britt Longo MD <Selene Dunaway - Last Filed: 06/26/17 20:38> <Britt Longo - Last Filed: 06/27/17 17:17> Diagnosis at time of Disposition: Ascites, malignant, Metastasis from colon cancer Abdominal pain Qualifiers: Abdominal location: generalized Qualified Code(s): R10.84 - Generalized abdominal pain - Discharge Dispostion Disposition: HOME Condition at time of disposition: Stable - Prescriptions Prescriptions: Docusate Sodium [Colace -] 100 mg PO BID PRN #60 capsule PRN Reason: Constipation Oxycodone HCl/Acetaminophen [Percocet 5-325 mg Tablet] 1 tab PO Q6H PRN #20 tablet MDD 4 PRN Reason: Severe Pain Ondansetron [Zofran Odt -] 4 mg SL TID PRN #21 od.tablet PRN Reason: Nausea And/Or Vomiting - Referrals Referrals: Joanna Severino MD [Primary Care Provider] - - Patient Instructions Printed Discharge Instructions: DI for Vomiting -- Adult, DI for Ascites, DI for Abdominal Pain-Adult Additional Instructions: It is important to followup with Dr Markell Hurley to pursue help with nutrition , pain control and any other concerns you have Please pick pack worker your medications at your pharmacy
[2017-06-26] MEDS ORDERED: morphine CARPU-JECT 2 MG/1 ML DISP.SYRIN ONE (19:56)
[2017-06-26 20:01] LABS: URINE MUCUS FEW; URINE RBC 6 /hpf (0-3); URINE WBC 5 /hpf (3-5)
[2017-06-26 20:07] LABS: ALBUMIN 3.6 g/dl (3.4-5.0); ANION GAP 7 (8-16); CALCIUM 9.3 mg/dL (8.5-10.1); CO2 28 mmol/L (21-32); CREATININE 0.6 mg/dL (0.55-1.02); GLUCOSE,RANDOM 81 mg/dL (74-106); SGOT/AST 11 U/L (15-37)
[2017-06-26 20:11] LABS: ALK PHOS 71 U/L (45-117); BILIRUBIN,TOTAL 0.6 mg/dL (0.2-1.0); SGPT/ALT 12 U/L (12-78); TOT PROT 7.3 g/dl (6.4-8.2)
--- NOTE | 2017-06-27 10:32 | EKG ---
Test Reason : Blood Pressure : / mmHG Vent. Rate : 071 BPM Atrial Rate : 071 BPM P-R Int : 194 ms QRS Dur : 088 ms QT Int : 410 ms P-R-T Axes : 040 064 056 degrees QTc Int : 445 ms NORMAL SINUS RHYTHM POSSIBLE LEFT ATRIAL ENLARGEMENT BORDERLINE ECG WHEN COMPARED WITH ECG OF 05-JAN-2017 13:05, NO SIGNIFICANT CHANGE WAS FOUND CLINICAL CORRELATION IS RECOMMENDED Confirmed by DOC BUSCH MD ([id number]) on 06/27/2017 10:32:03 AM Referred By: Confirmed By:DOC BUSCH MD
== END 2017-06-26 22:09 | disposition home or self-care (01) ==
LOC: JER 17:03
PROC: 3E033NZ Introduction of Analgesics, Hypnotics, Sedatives into Peripheral Vein, Percutaneous Approach (ICD-10-PCS; principal; 2017-06-26)
PROC: 3E033GC Introduction of Other Therapeutic Substance into Peripheral Vein, Percutaneous Approach (ICD-10-PCS; 2017-06-26)
PROC: 3E0337Z Introduction of Electrolytic and Water Balance Substance into Peripheral Vein, Percutaneous Approach (ICD-10-PCS; 2017-06-26)
DX: R10.84 Generalized abdominal pain (principal); C18.9 Malignant neoplasm of colon, unspecified; R18.0 Malignant ascites
CPT/HCPCS: 36415; 80053; 81003; 81015; 83690; 84703; 85025; 93005; 93010; 99283-25

== ENCOUNTER → 2017-08-16 | Day surgery (SDC) | payer BC, OTHER ==
[2017-08-16 19:43] LABS: PERITONEAL FLUID LYMPHOCYTE 75 %; PERITONEAL FLUID MESOTHELIAL 5 %; PERITONEAL FLUID MONOCYTE 10 %; PERITONEAL FLUID NEUTROPHIL 5 %
[2017-08-16 19:44] LABS: PERITONEAL FLUID MACROPHAGE 5 %
--- NOTE | 2017-08-22 18:21 | PATH ---
Cytology Non-Gynecological Report Patient Name: NEY ANDERSON [facility]. Rec. #: [id number] /Age/Gender: 1985 (Age: 32) / F Account: [id number] Location: [facility] Taken: 08/17/2017 Received: 08/17/2017 Reported: 08/22/2017 Physicians: Sylvester Enriquez M.D. Specimen(s) Received A: ABDOMINAL FLUID B: ABDOMINAL FLUID Clinical History Colon adenocarcinoma Final Diagnosis A & B. ABDOMINAL FLUID, PARACENTESIS: SATISFACTORY FOR EVALUATION. POSITIVE FOR MALIGNANT CELLS. ADENOCARCINOMA. SEE COMMENT. Comment: Scant evidence. Immunohistochemical stain performed and interpreted at [facility] show rare atypical epithelial cells are positive for CK20. Additional immunohistochemical stains performed at [place], [place] ([id number]) and interpreted at [facility] shows very rare atypical epithelial cells are positive for CDX-2, while scattered mesothelial cells are positive for D2-40. Findings are consistent with known history of colonic adenocarcinoma. Case shown interdepartmentally. Findings discussed with Dr. Enriquez. Electronically Signed Tonia Decker M.D. Gross Description A. Approximately 50 cc of yellow fluid received fixed in 50% alcohol. Two cytofunnels and one cellblock prepared. B. Approximately 4500 cc of yellow fluid received fresh. Two cytofunnels and one cellblock prepared.
== END | disposition home or self-care (01) ==
LOC: JRADIR 13:58
PROVIDERS: ATTEND Internal Medicine Gastroenterology
PROC: 0W9G3ZZ Drainage of Peritoneal Cavity, Percutaneous Approach (ICD-10-PCS; principal; 2017-08-16)
DX: R18.8 Other ascites (principal)
CPT/HCPCS: 76942-TC; 82042; 82945; 83615; 84157; 87070; 87075; 87102; 87116; 87205; 87206; 87210; 88108; 88305-TC; 89051

== ENCOUNTER 2017-08-23 14:23 | Emergency (ER) | payer BC, OTHER ==
[2017-08-23 14:28] VITALS: BP 89/63; PULSE 82; TEMP 97.8
--- NOTE | 2017-08-23 14:30 | PDOC ---
Rapid Medical Evaluation Time Seen by Provider: 08/23/17 14:25 Medical Evaluation: Allergies Allergy/AdvReac Type Severity Reaction Status Date / Time No Known Allergies Allergy Verified 06/26/17 17:11 08/23/17 14:25 I have performed a brief in person evaluation of this patient. The patient presents with chief complaint of :swelling in abdomen , history of colon cancer c/o 9/10 pain , history of peritoneal drainage, history of hypotension Pertinent PE findings: swelling noted to abdomen,Aox3 no acute distress, cachetic I have ordered the following: labs The patient will proceed to the ER for further evaluation. 08/23/17 14:31
[2017-08-23 14:54] LABS: BASOPHIL 0.6 % (0-2.0); EOSINOPHIL 0.9 % (0-4.5); MCH 27.9 pg (25.7-33.7); MCHC 32.2 g/dl (32.0-36.0); MEAN CELL VOLUME 86.7 fl (80-96); MEAN PLT VOLUME 7.7 fl (7.5-11.1); PLATELET COUNT 451 K/MM3 (134-434); RDW 15.1 % (11.6-15.6)
--- NOTE | 2017-08-23 15:08 | PDOC ---
History of Present Illness <Yolis Sanchez - Last Filed: 08/23/17 17:02> - History of Present Illness Initial Comments: 08/23/17 15:03 32yo woman with PMH of stage IV colon CA s/p right hemicolectomy (December 2016), who presents to the ED with c/o abdominal pain unrelieved with Perocet and requesting "fluid in stomach" to be drained. She has refused chemotherapy in the past and is "holistically treating the cancer". One week ago she had CT- guided drainage of ascites, 4600cc was removed. She denies fever, chills, nausea, vomit, diarrhea and constipation. Last BM was 2 days ago. She denies dysuria, frequency, urgency and hematuria. Allergies: NKDA Past surgical history: right hemicolectomy, x3, myomectomy PCP - Dr. Joanna Severino ([phone]) GI - Dr. Enriquez Oncologist - Dr. Hurley ([phone]) 08/23/17 17:57 <Lu Garza - Last Filed: 08/23/17 18:01> - General Chief Complaint: Pain Stated Complaint: DRAINAGE OF FLUID Time Seen by Provider: 08/23/17 14:25 Past History <Yolis Sanchez - Last Filed: 08/23/17 17:02> - Past Medical History Anemia: Yes Asthma: No Cancer: Yes (colon) Cardiac Disorders: No CVA: No COPD: No CHF: No Dementia: No Diabetes: No GI Disorders: No Disorders: No HTN: No Hypercholesterolemia: No Liver Disease: No Seizures: No Thyroid Disease: No - Immunization History Immunization Up to Date: Yes - Suicide/Smoking/Psychosocial Hx Smoking Status: No Smoking History: Never smoked Have you smoked in the past 12 months: No Number of Cigarettes Smoked Daily: 0 Hx Alcohol Use: No Drug/Substance Use Hx: No Substance Use Type: None Hx Substance Use Treatment: No <Lu Garza - Last Filed: 08/23/17 18:01> - Past Medical History Allergies/Adverse Reactions: Allergies Allergy/AdvReac Type Severity Reaction Status Date / Time No Known Allergies Allergy Verified 06/26/17 17:11 Home Medications: Ambulatory Orders Oxycodone HCl/Acetaminophen [Percocet 5-325 mg Tablet] 1 tab PO Q4H PRN MDD 4 *Physical Exam - Vital Signs Last Vital Signs Temp Pulse Resp BP Pulse Ox 97.8 F 82 20 89/63 100 08/23/17 14:24 08/23/17 14:24 08/23/17 14:24 08/23/17 14:24 08/23/17 14:24 <Yolis Sanchez - Last Filed: 08/23/17 17:02> - Vital Signs Last Vital Signs Temp Pulse Resp BP Pulse Ox 97.8 F 82 20 89/63 100 08/23/17 14:24 08/23/17 14:24 08/23/17 14:24 08/23/17 14:24 08/23/17 14:24 - Physical Exam General Appearance: Yes: Cachetic Respiratory/Chest: positive: Lungs Clear, Normal Breath Sounds Cardiovascular: positive: Regular Rhythm, Regular Rate Gastrointestinal/Abdominal: positive: Distended (+fluid wave, +diffuse tenderness) <Lu Garza - Last Filed: 08/23/17 18:01> Procedures - Additional Procedures Additional Procedures: other Progress: 08/23/17 17:02 Paracentesis- Using ultrasound guidance, a fluid pocket was identified in the LLQ. The area was prepped with chloraprep then a sterile drape was placed. Lidocaine was injected locally for anesthesia. Needle was inserted into the marked location until straw-colored fluid returned. Catheter was advanced and needle was withdrawn over the catheter. Three liters of fluid were removed using vacuum containers, some fluid was removed manually, then the assembly was connected to collection bag to gravity. <Yolis Sanchez - Last Filed: 08/23/17 17:02> ED Treatment Course - LABORATORY CBC & Chemistry Diagram: 08/23/17 14:45 08/23/17 14:45 - ADDITIONAL ORDERS Additional order review: Laboratory Results 08/23/17 08/23/17 14:45 14:45 PT with INR 12.10 H INR 1.07 Sodium 135 L Potassium 4.6 Chloride 100 Carbon Dioxide 29 Anion Gap 6 L BUN 18 D Creatinine 0.7 Creat Clearance w eGFR > 60 Random Glucose 102 D Calcium 8.4 L Total Bilirubin 0.5 AST 18 D ALT 12 Alkaline Phosphatase 70 Total Protein 5.7 L D Albumin 2.5 L D 08/23/17 14:45 RBC 3.76 MCV 86.7 MCHC 32.2 RDW 15.1 D MPV 7.7 D Neutrophils % 71.0 Lymphocytes % 17.2 D Monocytes % 10.3 H Eosinophils % 0.9 Basophils % 0.6 <Yolis Sanchez - Last Filed: 08/23/17 17:02> - LABORATORY CBC & Chemistry Diagram: 08/23/17 14:45 08/23/17 14:45 - ADDITIONAL ORDERS Additional order review: 08/23/17 14:45 RBC 3.76 MCV 86.7 MCHC 32.2 RDW 15.1 D MPV 7.7 D Neutrophils % 71.0 Lymphocytes % 17.2 D Monocytes % 10.3 H Eosinophils % 0.9 Basophils % 0.6 <Lu Garza - Last Filed: 08/23/17 18:01> Medical Decision Making - Medical Decision Making 08/23/17 17:45 32yo woman with metastatic colon cancer s/p R hemicolectomy, refused chemo/RT, who presents with symptomatic ascites. Patient's INR and platelets were wnl, and successful ultrasound guided paracentesis in LLQ was performed. 3700cc of straw colored, non-cloudy fluid was removed. 08/23/17 17:53 Paracentesis catheter removed. Gauze dressing applied. Patient tolerated procedure well. Decreased abdominal tenderness and distention on exam. Patient is stable to be discharged home. <Lu Garza - Last Filed: 08/23/17 18:01> *DC/Admit/Observation/Transfer <Yolis Sanchez - Last Filed: 08/23/17 17:02> - Discharge Dispostion Admit: No <Lu Garza - Last Filed: 08/23/17 18:01> Diagnosis at time of Disposition: Ascites - Discharge Dispostion Disposition: HOME Condition at time of disposition: Stable - Referrals Referrals: Joanna Severino MD [Primary Care Provider] - - Patient Instructions Additional Instructions: Please see your Umbrella Finisher (Dr. Enriquez) within 1-2 weeks. There may be a small amount of residual fluid leakage from the catheter site. Please change the gauze dressing as needed. Please return to the emergency department if you have new, worsening or concerning symptoms.
[2017-08-23 15:23] LABS: ALBUMIN 2.5 g/dl (3.4-5.0); ALK PHOS 70 U/L (45-117); ANION GAP 6 (8-16); BILIRUBIN,TOTAL 0.5 mg/dL (0.2-1.0); CALCIUM 8.4 mg/dL (8.5-10.1); CO2 29 mmol/L (21-32); CREATININE 0.7 mg/dL (0.55-1.02); GLUCOSE,RANDOM 102 mg/dL (74-106); SGOT/AST 18 U/L (15-37); SGPT/ALT 12 U/L (12-78); TOT PROT 5.7 g/dl (6.4-8.2)
[2017-08-23 15:35] LABS: INR 1.07 (0.82-1.09); PROTHROMBIN TIME (PATIENT) 12.1 SEC (9.98-11.88)
--- NOTE | 2017-08-23 16:44 | PDOC ---
Attending Attestation - Resident Resident Name: Ulicse Stewart - ED Attending Attestation I have performed the following: I have examined & evaluated the patient, The case was reviewed & discussed with the resident, I agree w/resident's findings & plan, Exceptions are as noted - HPI HPI: 32 yo F history stage IV colon CA s/p R hemicolectomy, on holistic care for her CA presents with abdominal pain and back pain. She states she had a paracentesis with removal of almost 5 liters of fluid, which relieved her pain. Pain is similar today. She states that her abdominal distension leads her to change her posture, which causes backache. Denies f/c, N/V/D. - Physicial Exam PE: GENERAL: Awake, alert, and fully oriented, in no acute distress. +Cachexia. HEAD: No signs of trauma. +Temporal wasting. EYES: PERRLA, EOMI, sclera anicteric, conjunctiva clear ENT: Auricles normal inspection, hearing grossly normal, nares patent, oropharynx clear without exudates. Moist mucosa NECK: Normal ROM, supple, no lymphadenopathy, JVD, or masses LUNGS: Breath sounds equal, clear to auscultation bilaterally. No wheezes, and no crackles HEART: Regular rate and rhythm, normal S1 and S2, no murmurs, rubs or gallops ABDOMEN: Soft, +distension with fluid wave. Nontender, normoactive bowel sounds. No guarding, no rebound. +Multiple masses EXTREMITIES: Normal range of motion, no edema. No clubbing or cyanosis. No cords, erythema, or tenderness NEUROLOGICAL: Cranial nerves II through XII grossly intact. Normal speech, normal gait SKIN: Warm, Dry, normal turgor, no rashes or lesions noted. - Medical Decision Making Therapeutic paracentesis performed as per procedure note, with relief. No signs of SBP. Stable for DC home after fluid removal.
== END 2017-08-23 18:35 | disposition home or self-care (01) ==
LOC: JER 14:23
PROC: 0W9G3ZZ Drainage of Peritoneal Cavity, Percutaneous Approach (ICD-10-PCS; principal; 2017-08-23)
PROC: BW40ZZZ Ultrasonography of Abdomen (ICD-10-PCS; 2017-08-23)
DX: R18.8 Other ascites (principal); C18.9 Malignant neoplasm of colon, unspecified
CPT/HCPCS: 36415; 80053; 85025; 85610; 99283-25

== ENCOUNTER → 2017-08-30 | Day surgery (SDC) | payer BC, OTHER | END | disposition home or self-care (01) | LOC: JRADIR 13:17 | PROVIDERS: ATTEND Internal Medicine Gastroenterology | PROC: 0W9G3ZX Drainage of Peritoneal Cavity, Percutaneous Approach, Diagnostic (ICD-10-PCS; principal; 2017-08-30) | PROC: BW40ZZZ Ultrasonography of Abdomen (ICD-10-PCS; 2017-08-30) | DX: R18.8 Other ascites (principal); C18.9 Malignant neoplasm of colon, unspecified; C79.9 Secondary malignant neoplasm of unspecified site | CPT/HCPCS: 49083; 76942-TC ==

== ENCOUNTER → 2017-09-06 | Day surgery (SDC) | payer BC, OTHER | END | disposition home or self-care (01) | LOC: JRADIR 13:20 | PROVIDERS: ATTEND Internal Medicine Gastroenterology | PROC: 0W9G3ZZ Drainage of Peritoneal Cavity, Percutaneous Approach (ICD-10-PCS; principal; 2017-09-06) | PROC: BW40ZZZ Ultrasonography of Abdomen (ICD-10-PCS; 2017-09-06) | DX: R18.0 Malignant ascites (principal) | CPT/HCPCS: 76942-TC ==

== ENCOUNTER → 2017-09-13 | Day surgery (SDC) | payer BC, OTHER | END | disposition home or self-care (01) | LOC: JRADIR 09:37 | PROVIDERS: ATTEND Internal Medicine Gastroenterology | PROC: 0W9G3ZZ Drainage of Peritoneal Cavity, Percutaneous Approach (ICD-10-PCS; principal; 2017-09-13) | PROC: BW40ZZZ Ultrasonography of Abdomen (ICD-10-PCS; 2017-09-13) | DX: R18.8 Other ascites (principal) | CPT/HCPCS: 76942-TC ==